=== PATIENT | female | born 1940 | race Caucasian/White ===

== ENCOUNTER 2021-06-02 12:29 | Emergency (ER) | payer MEDICARE, SELFPAY ==
--- NOTE | 2021-06-02 | CTR_ITS ---
PROCEDURE INFORMATION: Exam: CT Maxillofacial Without Contrast Exam date and time: 06/02/2021 1:58 PM Age: 81 years old Clinical indication: Injury or trauma; Fall; Blunt trauma (contusions or hematomas); Orbit/periorbital; Right TECHNIQUE: Imaging protocol: Computed tomography images of the face without contrast. Axial, coronal and sagittal reformatted images were created and reviewed. Radiation optimization: All CT scans at this facility use at least one of these dose optimization techniques: automated exposure control; mA and/or kV adjustment per patient size (includes targeted exams where dose is matched to clinical indication); or iterative reconstruction. COMPARISON: CT head wo con* [id number] 06/02/2021 1:50 PM RADIATION DOSE METRICS: Total DLP (mGy-cm): 724.12 FINDINGS: Orbital cavity: Orbits are normal. Globes are unremarkable. Bones/joints: No acute fracture. Paranasal sinuses: Mild ethmoid mucosal thickening. Small amount of dependent fluid and/or blood products in the sphenoid sinuses. Soft tissues: Right periorbital soft tissue swelling. Other findings: Poor dentition. CT/CT facial bones wo con* [id number] IMPRESSION: 1. No acute facial bone fracture. 2. Additional findings, as above. Radiation Dose CTDIVOL = (mGy): DLP = 724.12 (mGy-cm)
--- NOTE | 2021-06-02 12:42 | CTR_ITS ---
PROCEDURE INFORMATION: Exam: CT Cervical Spine Without Contrast Exam date and time: 06/02/2021 12:42 PM Age: 81 years old Clinical indication: Injury or trauma; Fall; Blunt trauma TECHNIQUE: Imaging protocol: Computed tomography images of the cervical spine without contrast. Axial, coronal and sagittal reformatted images were created and reviewed. Radiation optimization: All CT scans at this facility use at least one of these dose optimization techniques: automated exposure control; mA and/or kV adjustment per patient size (includes targeted exams where dose is matched to clinical indication); or iterative reconstruction. COMPARISON: CT head wo con* [id number] 06/02/2021 1:50 PM RADIATION DOSE METRICS: Total DLP (mGy-cm): 838.21 FINDINGS: Bones/joints: Osteopenia. Mild reversal of the normal cervical lordosis. No CT evidence of acute fracture, dislocation or subluxation. Mild anterolisthesis of C3 on C4 and C7 on T1. Alignment otherwise anatomic. Vertebral body heights maintained. Discs/Spinal canal/Neural foramina: Diffuse ankylosis. Mild multilevel degenerative changes, characterized by disc space narrowing, osteophytosis and uncovertebral and facet joint hypertrophy. Mild multilevel spinal canal and neural foraminal narrowing. Lungs: Grossly unremarkable. Soft tissues: Grossly unremarkable. CT/CT cervical spin wo con* [id number]: 1[address] No CT evidence of acute cervical spine traumatic injury. 2. Additional findings, as above. Radiation Dose CTDIVOL = (mGy): DLP = 838.21 (mGy-cm)
--- NOTE | 2021-06-02 12:42 | CTR_ITS ---
PROCEDURE INFORMATION: Exam: CT Head Without Contrast Exam date and time: 06/02/2021 12:42 PM Age: 81 years old Clinical indication: Injury or trauma; Fall; Blunt trauma (contusions or hematomas); Additional info: Trauma/fall TECHNIQUE: Imaging protocol: Computed tomography of the head without contrast. Axial, coronal and sagittal reformatted images were created and reviewed. Radiation optimization: All CT scans at this facility use at least one of these dose optimization techniques: automated exposure control; mA and/or kV adjustment per patient size (includes targeted exams where dose is matched to clinical indication); or iterative reconstruction. COMPARISON: No relevant prior studies available. RADIATION DOSE METRICS: Total DLP (mGy-cm): 871.23 FINDINGS: Brain: Patchy areas of hypoattenuation in the periventricular and subcortical white matter, consistent with chronic small vessel ischemic disease. No CT evidence of acute intracranial hemorrhage or acute territorial infarction. No significant mass effect or midline shift. Basal cisterns patent. Cerebral ventricles: Prominence of the cortical sulci, cisterns and ventricular system, consistent with cerebral and cerebellar volume loss. Paranasal sinuses: Mild ethmoid mucosal thickening. Small amount of dependent fluid and/or blood products in the sphenoid sinuses. Mastoid air cells: Grossly unremarkable. Vasculature: Calcific atherosclerotic disease in the cavernous internal carotid arteries, as well as the vertebro-basilar system. Bones/joints: No acute osseous abnormality. Soft tissues: Right frontal scalp hematoma. Right periorbital soft tissue swelling. CT/CT head wo con* [id number] IMPRESSION: 1[address] No CT evidence of acute intracranial pathology. 2. Additional findings, as above. Radiation Dose CTDIVOL = (mGy): DLP = 871.23 (mGy-cm)
[2021-06-02 13:10] VITALS: BP 144/71; PULSE 69; RESP 16; TEMP 36.4; O2SAT 95; BMI 36.5
[2021-06-02 14:05] LABS: Charge for UA Resulting for Rev
[2021-06-02 14:38] LABS: Add Urine Microscopic? YES; Bilirubin Urine Neg (Negative); Blood Urine Neg (Negative); Glucose Urine UA Norm (Normal); Ketones Urine Negative (Negative); Leukocyte Esterase Urine Negative (Negative); Nitrate Urine Positive (Negative); Protein Urine Neg (Negative); Urine Appearance Hazy (CLEAR); Urine Color Straw (Yellow); Urobilinogen Urine Norm (Negative); pH Urine 5 (5-7)
[2021-06-02 14:39] LABS: Add Urine Culture? Yes; Bacteria Urine 4+ /hpf; Squamous Epithelial Cell Urine 0-4 /hpf (0-5)
--- NOTE | 2021-06-02 14:53 | XR_ITS ---
WS: [id number] Left hip, 2 views, AP pelvis, 06/02/2021 Clinical Data: fall/pain Comparison: None. Findings: No fractures or dislocations are seen. The left hip shows no fractures. There is an acetabular lip. N o left hip erosion, sclerosis, narrowing or cyst formation is seen. The right hip shows no fractures but there is an acetabular lip. The soft tissues are not remarkable. The adjacent pelvis is normal. The SI joints and pubic symphysis are normal. 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 XR/XR hip LT 2-3V wo/w pel* [id number] Impression: 1. Negative for left hip fracture, minimal osteoarthritis.. 2. Negative pelvis and right hip. Tonnis classification: grade 1: sclerosis of femoral head and acetabulum or sli ght joint space narrowing or slight lipping at joint margins of the left hip.
--- NOTE | 2021-06-02 15:33 | ED_ITS ---
HPI - Fall General: Chief Complaint: Fall Stated Complaint: Hit Right Side of head from fall Time Seen by Provider: 06/02/21 15:33 History of Present Illness: HPI Narrative: Ms Thomas is an 81-year-old lady with history of hypertension, hyperlipidemia, CHF, diabetes who presents emergency department due to fall. She reports over the past few days she has felt generally unwell but denies any specific findings. Last night she got up to go to the bathroom at about 430 and reports feeling lightheaded and off- balance at which point she fell. She was able to get herself up off the floor and did not spend significant amount of time on the floor. She had pain in the left hip with ambulation. She also has generalized pain on her back where she fell. Unclear if head strike or loss of consciousness. No other specific changes in health, exacerbating, or relieving factors identified. Review of Systems General: Reports: 10 or more systems reviewed and unremarkable except in HPI and below Physical Exam Narrative: EXAM NARRATIVE: GENERAL/CONSTITUTIONAL - well-appearing. No acute distress. Eyes - PERRL, no conjunctival injection ENMT - facial contusion. No evidence of abnormal EOMs, pain with EOM, entrapment. No arambula signs or raccoon eyes. Normal jaw alignment. Normal TMs. Moist mucous membranes NECK - supple. trachea midline CARDIOVASCULAR - regular rate and rhythm. Peripheral pulses 2+ and equal RESPIRATORY -clear to auscultation bilaterally. ABDOMEN/GI - Nontender/Nondistended. MSK - Extremities without obvious deformity or tenderness to palpation SKIN - Warm, Dry NEURO - alert and appropriately oriented. Moves all extremities equally. Course ED course: - Patient was seen and evaluated by me at bedside - Patient placed on cardiac monitors, IV access obtained - Initial evaluation notable for facial contusion, hip pain with roll. Nontoxic. - Labs notable for no significant hematologic or metabolic abnormality acutely. Urinalysis nitrate positive with 4+ bacteria and 10-15 WBCs. - Imaging notable for no acute traumatic bony or internal injury. - Upon serial reexamination after treatment the patient was improved. She ambulated with walker. - Based on patient history, evaluation, labs, and imaging as interpreted the most likely cause of the patient's condition is soft tissue injury secondary to fall. Urinalysis mildly concerning for urinary tract infection, will be treated - The results of ED evaluation were discussed with the patient including prescriptions and/or symptomatic cares (if applicable) including appropriate and responsible use, followup plan, and return precautions. The patient verbalized understanding and felt safe for discharge. - Patient discharged in satisfactory condition. Vital Signs: Vital signs: Vital Signs Temperature 97.6 F 06/02/21 13:10 Pulse Rate 78 06/02/21 19:30 Respiratory Rate 18 06/02/21 19:30 Blood Pressure 148/72 06/02/21 19:30 Pulse Oximetry 96 06/02/21 19:30 MDM - Fall Medical Records: Attestation: I reviewed the patient's medical records. Lab Data: Attestation: I reviewed the patient's lab results. Labs: Lab Results 06/02/21 06/02/21 06/02/21 13:40 16:29 16:29 WBC 8.2 10^3/uL 10^3/ uL (4.0-10.0) RBC 4.18 10^6/uL 10^6 /uL (4.1-5.3) Hgb 12.6 g/dL g/dL (11.5-15.3) Hct 38.6 % % (37.0-47.0) MCV 92.3 fl fl (81-99) MCH 30.1 pg pg (28.0-34.0) MCHC 32.6 g/dL g/dL (30.0-36.0) RDW 13.7 % % (12.1-15.1) Plt Count 273 10^3/cmm 10^3 /cmm (130-400) MPV 10.0 fL fL (7.4-10.4) Neut % (Auto) 59.9 % % Lymph % (Auto) 30.6 % % [place] % (Auto) 6.6 % % Eos % (Auto) 2.3 % % Baso % (Auto) 0.1 % % Neut # (Auto) 4.88 10^3/uL 10^3 /uL (1.8-7.7) Lymph # (Auto) 2.5 10^3/uL 10^3/ uL (0.8-4.8) [place] # (Auto) 0.5 10^3/uL 10^3/ uL (0.2-0.9) Eos # (Auto) 0.2 10^3/uL 10^3/ uL (0.0-0.8) Baso # (Auto) 0.0 10^3/uL 10^3/ uL (0.0-0.1) Nucleated RBC % (a uto) 0 % % Nucleated RBCs # 0.0 /100WBC /100W BC Sodium 137 mmol/L mmol/L (136-145) Potassium 4.3 mmol/L mmol/L (3.5-5.1) Chloride 96 mmol/L L mmol/ L (98-107) Carbon Dioxide 29 mmol/L mmol/L (22-29) Anion Gap 16.3 (5-19) BUN 29 mg/dL H mg/dL (8-23) Creatinine 0.9 mg/dL mg/dL (0.5-0.9) GFR Calculation Not Reportable Glucose 132 mg/dL H mg/dL (65-115) Calculated Osmolal ity 292 mOsm/kg mOsm/ kg (285-295) Calcium 9.9 mg/dL mg/dL (8.5-10.5) Total Bilirubin 0.2 mg/dL mg/dL (0.15-1.2) AST 15 U/L U/L (0-32) ALT 16 U/L U/L (0-33) Alkaline Phosphata se 122 IU/L H IU/L (35-105) Troponin T Baselin e Troponin T 120 Min [place] Delta Troponin T Total Protein 7.6 g/dL g/dL (6.6-8.7) Albumin 4.2 g/dL g/dL (3.5-5.2) Globulin 3.4 g/dL g/dL (1.3-4.6) TSH 3.23 uIU/mL uIU/m L (0.27-4.20) Urine Color Straw (Yellow) Urine Appearance Hazy A (CLEAR) Urine pH 5 (5-7) Ur Specific Gravit y 1.010 (1.005-1.030) Urine Protein Neg (Negative) Urine Glucose (UA) Norm (Normal) Urine Ketones Negative (Negative) Urine Blood Neg (Negative) Urine Nitrate Positive H (Negative) Urine Bilirubin Neg (Negative) Urine Urobilinogen Norm mg/dL mg/dL (Negative) Ur Leukocyte Destiny ase Negative (Negative) Urine RBC Not Reportable Urine WBC 10-15 /hpf H /hpf (0-5) Ur Squamous Epith Cells 0-4 /hpf H /hpf (0-5) Amorphous Sediment Not Reportable Urine Bacteria 4+ /hpf H /hpf (NONE) 06/02/21 06/02/21 16:29 18:31 WBC RBC Hgb Hct MCV MCH MCHC RDW Plt Count MPV Neut % (Auto) Lymph % (Auto) [place] % (Auto) Eos % (Auto) Baso % (Auto) Neut # (Auto) Lymph # (Auto) [place] # (Auto) Eos # (Auto) Baso # (Auto) Nucleated RBC % (a uto) Nucleated RBCs # Sodium Potassium Chloride Carbon Dioxide Anion Gap BUN Creatinine GFR Calculation Glucose Calculated Osmolal ity Calcium Total Bilirubin AST ALT Alkaline Phosphata se Troponin T Baselin e 9 ng/L ng/L (0-10) Troponin T 120 Min [place] 9.41 ng/L ng/L (0-10) Delta Troponin T 0.41 ABS# ABS# (0-10) Total Protein Albumin Globulin TSH Urine Color Urine Appearance Urine pH Ur Specific Gravit y Urine Protein Urine Glucose (UA) Urine Ketones Urine Blood Urine Nitrate Urine Bilirubin Urine Urobilinogen Ur Leukocyte Destiny ase Urine RBC Urine WBC Ur Squamous Epith Cells Amorphous Sediment Urine Bacteria EKG Data^: EKG 1: Attestation: I personally reviewed and interpreted this EKG as follows: EKG interpretation date: 06/02/21 EKG interpretation time: 17:30 Interpretation: Twelve-lead EKG shows a regular rhythm at a rate of 70. NV interval 153, QRS duration 87, QTc 412. Normal axis. Interpretation: Sinus rhythm, nonspecific ST segment abnormalities. Discharge Plan Discharge Patient Disposition: Home Clinical Impression: Fall, Contusion, Minor closed head injury, Bacteriuria Condition: Stable Prescriptions: New cephalexin 500 mg capsule 500 mg PO Q6H 10 Days Qty: 40 RF: 0 Discharge Orders: Discharge ED (Routine); Ordered 06/02/21 Ordered By: Edmar Curry Referrals: Antonio Tabor MD [Primary Care Provider] - Discharge Diet: Usual diet Discharge Activity: Resume usual activity Patient Instructions: Urinary Tract Infection in Women (ED), Fall Prevention for Older Adults (ED), Opioid Safety Activity Restrictions/Additional Instructions: Thank you for visiting the emergency department. You were seen and evaluated after a fall. The exact cause of your fall is unclear, you were found to have a small amount of bacteria in your urine and given your fall in addition to symptoms this will be treated. Please follow-up with your primary care provider. Please return to the emergency department for recurrent falls, uncontrolled pain, or anything else that you are concerned about and feel needs emergency department evaluation. Coding Level of Care Code ED Boring Machine Operator Double End for Nilay Lopez
[2021-06-02 16:35] LABS: Basophils % 0.1 %; Eosinophils # 0.2 10^3/uL (0.0-0.8); Eosinophils % 2.3 %; Hematocrit 38.6 % (37.0-47.0); Hemoglobin 12.6 g/dL (11.5-15.3); Lymphocytes # 2.5 10^3/uL (0.8-4.8); Lymphocytes % 30.6 %; Mean Corpuscular HGB Conc 32.6 g/dL (30.0-36.0); Mean Corpuscular Hemoglobin 30.1 pg (28.0-34.0); Mean Corpuscular Volume 92.3 fl (81-99); Monocytes # 0.5 10^3/uL (0.2-0.9); Monocytes % 6.6 %; Neutrophils # 4.88 10^3/uL (1.8-7.7); Neutrophils % 59.9 %; Nucleated Red Blood Cells % 0 %; Platelet Count 273 10^3/cmm (130-400); Red Blood Count 4.18 10^6/uL (4.1-5.3); Red Cell Distribution Width 13.7 % (12.1-15.1); White Blood Count 8.2 10^3/uL (4.0-10.0)
[2021-06-02] MEDS: acetaminophen 325 mg Tablet 650 MG PO (16:38)
[2021-06-02] MEDS: morphine 4 mg/mL SDV 1 mL IVP (16:38)
[2021-06-02] MEDS: ondansetron 2 mg/ML SDV 2 mL 4 MG IVP (16:38)
[2021-06-02 17:01] LABS: Troponin(5th) Baseline 9 ng/L (0-10)
[2021-06-02 17:07] LABS: Alanine Aminotransferase 16 U/L (0-33); Albumin Level 4.2 g/dL (3.5-5.2); Alkaline Phosphatase 122 IU/L (35-105); Blood Urea Nitrogen 29 mg/dL (8-23); Calcium 9.9 mg/dL (8.5-10.5); Carbon Dioxide 29 mmol/L (22-29); Chloride 96 mmol/L (98-107); Globulin 3.4 g/dL (1.3-4.6); Glucose 132 mg/dL (65-115); Osmolality Calculated 292 mOsm/kg (285-295); Sodium 137 mmol/L (136-145); Thyroid Stimulating Hormone 3.23 uIU/mL (0.27-4.20); Total Bilirubin 0.2 mg/dL (0.15-1.2); Total Protein 7.6 g/dL (6.6-8.7)
[2021-06-02 17:10] LABS: Anion Gap 16.3 (5-19); Aspartate Amino Transferase 15 U/L (0-32); Potassium 4.3 mmol/L (3.5-5.1)
[2021-06-02 18:00] VITALS: BP 187/78; PULSE 58; RESP 18; O2SAT 98
--- NOTE | 2021-06-02 18:01 | ECG_ITS ---
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 Measurements Intervals [place] Rate: 70 P: 66 UT: 153 QRS: 10 QRSD: 87 T: -19 QT: 391 QTc: 424 Interpretive Statements SINUS RHYTHM POSSIBLE LEFT ATRIAL ENLARGEMENT [-0.1mV P-WAVE IN V1/V2] POSSIBLE ANTERIOR MYOCARDIAL INFARCTION , PROBABLY OLD [30 ms Q WAVE IN V3/V4, OR R < 0.2 mV IN V4] No previous ECG available for comparison Electronically Signed On 06-02-2021 22:59:21 MEAT STUFFER by Tio Cohen M.D. [email or web address] [id number] f
[2021-06-02 19:07] LABS: Troponin 5 2HR 9.41 ng/L (0-10); Troponin 5 2HR Delta 0.41 ABS# (0-10)
[2021-06-02 19:25] VITALS: BP 157/78; PULSE 66; RESP 18; O2SAT 98
[2021-06-02 19:30] VITALS: BP 148/72; PULSE 78; RESP 18; O2SAT 96
== END 2021-06-02 19:33 | disposition home or self-care (01) ==
PROVIDERS: Emergency Provider Emergency Medicine; PCP Family Medicine
DX: S09.8XXA Other specified injuries of head, initial encounter (principal); R82.71 Bacteriuria; S00.83XA Contusion of other part of head, initial encounter; W19.XXXA Unspecified fall, initial encounter; I11.0 Hypertensive heart disease with heart failure; I50.9 Heart failure, unspecified; E78.5 Hyperlipidemia, unspecified; E11.9 Type 2 diabetes mellitus without complications
CPT/HCPCS: 70450; 70486; 72125; 73502; 80053; 81001; 81003; 84443; 84484; 85025; 87077; 87086; 87186; 93005; 96374; 96375; 99283; J2270; J2405

== ENCOUNTER 2021-06-09 11:31 | Emergency (ER) | payer MEDICARE, SELFPAY ==
[2021-06-09 11:34] VITALS: BP 178/88; PULSE 75; RESP 15; TEMP 36.7; O2SAT 95; BMI 36.8
--- NOTE | 2021-06-09 11:57 | CT_ITS ---
WS: [id number] CT LUMBAR SPINE TECHNIQUE: Noncontrast CT of the lumbar spine with coronal and sagittal reformatted images. CLINICAL INFORMATION: fall, worsening pain COMPARISON: None. DLP: 2306.[address] scans at [facility] use at least one of these dose optimization techniques: automated e xposure control; mA and/or kV adjustment per patient size (includes targeted exams where dose is matc hed to clinical indication); or iterative reconstruction. FINDINGS: Mild lumbar curve convex right. Disc space narrowing worse at L3-L4 L4-L5 and L5-S1. Anterior hypertr ophic changes lumbar spine. No acute appearing compression fractures. Right adrenal adenoma measuring 3.3 x 2.7 cm. Left adrenal gland is normal. L1-L2: Mild disc osteophytic ridging. Moderate facet arthropathy. Spinal canal is patent. Slight narr owing of the right subarticular recess. L2-L3: No significant disc bulging. Moderate facet arthropathy. Spinal canal and foramen are patent. L3-L4: Disc osteophyte complex with a left subarticular disc protrusion. This impinges the left ventr al thecal sac and traversing left L4 nerve root. Severe central canal stenosis. Advanced facet arthro olive. Foramen are patent. L4-L5: Chronic disc desiccation. Prior postoperative changes laminectomy defects. Spinal canal and fo ramen are patent. Advanced facet arthropathy. L5-S1: Disc osteophyte complex with endplate ridging. Spinal canal and foramen are patent. Moderate f acet arthropathy. CT/CT lumbar spine wo con* [id number] IMPRESSION: 1. Mild lumbar curve. No acute compression. No acute fractures. 2. Severe central canal stenosis L3-4 with left pericentral disc protrusion im pinges the left subarticular recess. Advanced facet arthropathy with ligamentum flavum flavum hypertrophy. This can be followed up with MRI. 3. Moderate to advanced facet arthropathy throughout the lumbar spine. 4. Evidence of prior hemilaminectomy defects L4-5. 5. Right adrenal lesion likely adenoma measuring 3.3 x 2.7 CM.
--- NOTE | 2021-06-09 12:01 | CT_ITS ---
WS: [id number] CT pelvis TECHNIQUE: Noncontrast CT of the pelvis with coronal and sagittal reformatted images. CLINICAL INFORMATION: fall COMPARISON: None. DLP: 1003.[address] scans at [facility] use at least one of these dose optimization techniques: automated e xposure control; mA and/or kV adjustment per patient size (includes targeted exams where dose is matc hed to clinical indication); or iterative reconstruction. FINDINGS: Mild degenerative arthritis both sacroiliac joints. Normal iliac wings. Normal visualized sacrum and sacral ala. Normal pubic rami. Normal pubic symphysis. Normal acetabulum. Moderate degenerative arthr itis both hips with joint space narrowing. Disc space narrowing lower lumbar spine. Slightly comminuted and fragmented fractures involving the sacrococcygeal junction age indeterminate. Recommend correlation with area of pain. Small amount of soft tissue edema in this area. No other vi sualized fractures. CT/CT pelvis wo con [id number] IMPRESSION: 1. Slightly comminuted and fragmented fractures involving the sacrococcygeal j unction are age indeterminate. Recommend correlation with area of pain. 2. No other visualized fractures. Notified SHAUN Correa at 06/09/2021 2:32 PM.
[2021-06-09 12:03] VITALS: BP 194/82; PULSE 68; RESP 16; O2SAT 94
--- NOTE | 2021-06-09 12:05 | W.ED.FALL ---
Documented by User: SHAUN Correa 06/09/21 16:51 HPI - Fall General: Chief Complaint: Fall Stated Complaint: BACK PAIN Time Seen by Provider: 06/09/21 11:46 History of Present Illness: HPI Narrative: Patient arrived via ambulance with complaint of worsening low back pain since a fall 1 week ago. Daughter states that she was helping her mother get a wheelchair for doctor's appointment and her mother just sit down the floor because she said her back was hurting too bad and that her legs were weak. Patient states her back continues to hurt has not improved. It hurts for her to bear weight. Also being treated for urinary tract infection and daughter states that mother has periods of incontinence. Denies fever chills nausea or vomiting or other related problems. MD complaint: other (Low back pain from fall 1 week ago.) Onset (ago): day(s) Severity: moderate Severity scale (1-10): 5 Quality: aching Associated symptoms-after fall: Reports no associated symptoms; Denies abdominal pain, chest pain or headache(s) Review of Systems Const: Reports: other (Weakness); Denies: fever(s), chills or body aches Eyes: Denies: change in vision or blurry vision ENMT: Denies: throat pain or nasal congestion Card: Denies: chest pain or dyspnea on exertion Resp: Denies: dyspnea, productive cough or non-productive cough GI: Denies: abdominal pain, nausea or vomiting Musc: Reports: back pain; Denies: extremity pain Skin/Breast: Reports: other (Bruising to face); Denies: rash Neuro: Denies: headache(s) Psych: Denies: anxiety or depression Efren/Lymph: Denies: easy bruising Physical Exam Const: COMMON NORMALS: no acute distress, average body habitus and patient oriented x3 HENMT: COMMON NORMALS: normocephalic HEAD & SCALP: normal to inspection and normocephalic FACE & SINUS: normal facial exam Eye: COMMON NORMALS: conjunctivae normal GENERAL EYE: appearance normal, both eyes and all related structures CONJUNCTIVA: Yes conjunctivae normal Neck/C-Spine: COMMON NORMALS: no JVD Chest: COMMONS NORMALS: normal inspection of the chest Resp: COMMON NORMALS: normal respiratory effort and clear to auscultation bilaterally AUSCULTATION: clear to auscultation bilaterally Cardio: COMMON NORMALS: no JVD, regular rate and regular rhythm RATE: regular rate RHYTHM: regular rhythm GI: COMMON NORMALS: Soft to palpation AUSCULTATION: Yes Hypoactive bowel sounds present PALPATION: Yes Soft to palpation Back/Pelvis: LUMBAR SPINE/LOWER BACK: Yes lumbar spinal tenderness, Yes straight leg raise positive right Straight leg raise positive details right: at 30 degrees and Yes straight leg raise positive left Straight leg raise positive details left: at 30 degrees Extremity: COMMON NORMALS: normal to inspection and full ROM Neuro: COMMON NORMALS: patient oriented x3 Skin: OTHER: Old bruising to the face Course Vital Signs: Vital signs: Vital Signs Temperature 98.0 F 06/09/21 11:34 Pulse Rate 74 06/09/21 15:49 Respiratory Rate 16 06/09/21 15:49 Blood Pressure 171/75 06/09/21 15:49 Pulse Oximetry 96 06/09/21 15:49 MDM - Fall MDM Narrative: Medical decision making narrative: Patient with pain since fall last week. X-rays done we go were negative for any concerning problems. Patient continue with pain and went and performed a CT today which showed she had a sacrococcyx commuted fracture. Patient also has a spinal stenosis L3-L4 which she has had for while continues to worsen. Does have a disc protrusion. Patient is able to move her legs and able stand did go to the bathroom while here in the ER. Pain medication provided a lot of relief. Discussed the case with Dr. Fuentes and came up with plan to care for patient's pain. Patient to follow-up with primary care provider. Lab Data: Labs: Lab Results 06/09/21 06/09/21 06/09/21 12:22 12:22 13:19 WBC 7.3 10^3/uL 10^3/ uL (4.0-10.0) RBC 3.94 10^6/uL L 10 ^6/uL (4.1-5.3) Hgb 12.0 g/dL g/dL (11.5-15.3) Hct 37.1 % % (37.0-47.0) MCV 94.2 fl fl (81-99) MCH 30.5 pg pg (28.0-34.0) MCHC 32.3 g/dL g/dL (30.0-36.0) RDW 13.5 % % (12.1-15.1) Plt Count 237 10^3/cmm 10^3 /cmm (130-400) MPV 10.2 fL fL (7.4-10.4) Neut % (Auto) 72.3 % % Lymph % (Auto) 18.7 % % [place] % (Auto) 6.6 % % Eos % (Auto) 1.6 % % Baso % (Auto) 0.1 % % Neut # (Auto) 5.29 10^3/uL 10^3 /uL (1.8-7.7) Lymph # (Auto) 1.4 10^3/uL 10^3/ uL (0.8-4.8) [place] # (Auto) 0.5 10^3/uL 10^3/ uL (0.2-0.9) Eos # (Auto) 0.1 10^3/uL 10^3/ uL (0.0-0.8) Baso # (Auto) 0.0 10^3/uL 10^3/ uL (0.0-0.1) Nucleated RBC % (a uto) 0 % % Nucleated RBCs # 0.0 /100WBC /100W BC Sodium 133 mmol/L L mmol /L (136-145) Potassium 4.6 mmol/L mmol/L (3.5-5.1) Chloride 93 mmol/L L mmol/ L (98-107) Carbon Dioxide 25 mmol/L mmol/L (22-29) Anion Gap 19.6 H (5-19) BUN 29 mg/dL H mg/dL (8-23) Creatinine 1.3 mg/dL H mg/dL (0.5-0.9) GFR Calculation Not Reportable Glucose 261 mg/dL H mg/dL (65-115) Calculated Osmolal ity 291 mOsm/kg mOsm/ kg (285-295) Calcium 9.7 mg/dL mg/dL (8.5-10.5) Total Bilirubin 0.2 mg/dL mg/dL (0.15-1.2) AST 15 U/L U/L (0-32) ALT 20 U/L U/L (0-33) Alkaline Phosphata se 129 IU/L H IU/L (35-105) Total Protein 7.3 g/dL g/dL (6.6-8.7) Albumin 3.5 g/dL g/dL (3.5-5.2) Globulin 3.8 g/dL g/dL (1.3-4.6) Urine Color Yellow (Yellow) Urine Appearance Clear (CLEAR) Urine pH 5 (5-7) Ur Specific Gravit y 1.015 (1.005-1.030) Urine Protein Neg (Negative) Urine Glucose (UA) 4+ H (Normal) Urine Ketones Negative (Negative) Urine Blood Neg (Negative) Urine Nitrate Negative (Negative) Urine Bilirubin Neg (Negative) Urine Urobilinogen Norm mg/dL mg/dL (Negative) Ur Leukocyte Destiny ase Negative (Negative) Discharge Plan Discharge Patient Disposition: Home Clinical Impression: Protruded lumbar disc Fracture, sacrum/coccyx Qualifiers: Encounter type: initial encounter Fracture type: closed Qualified Code(s): S32.10XA - Unspecified fracture of sacrum, initial encounter for closed fracture Spinal stenosis Qualifiers: Spinal region: lumbar Neurogenic claudication status: without neurogenic claudication Qualified Code(s): M48.061 - Spinal stenosis, lumbar region without neurogenic claudication Condition: Stable Prescriptions: New hydrocodone-acetaminophen 5-325 mg tablet 1 tab PO TID PRN (Reason: pain) Qty: 30 RF: 0 Celebrex 100 mg capsule 100 mg PO BID Qty: 20 RF: 0 No Action cephalexin 500 mg capsule 500 mg PO Q6H 10 Days Qty: 40 RF: 0 tizanidine 4 mg tablet 6 mg PO BEDTIME RF: 0 olanzapine 10 mg tablet 10 mg PO BEDTIME RF: 0 glimepiride 2 mg tablet 2 mg PO DAILY RF: 0 carbamazepine 200 mg tablet 200 mg PO BID RF: 0 Synthroid 88 mcg tablet 88 mcg PO DAILY RF: 0 potassium chloride 20 mEq tablet,ER particles/crystals 20 meq PO DAILY RF: 0 Januvia 100 mg tablet 100 mg PO DAILY RF: 0 olanzapine 5 mg tablet 5 mg PO DAILY RF: 0 citalopram 20 mg tablet 20 mg PO DAILY RF: 0 fiber Tablet 2 tab PO BID RF: 0 Lasix 20 mg Tablet 20 mg PO DAILY RF: 0 gabapentin 100 mg Capsule 100 mg PO TID RF: 0 hydroxyzine pamoate 25 mg capsule 25 mg PO TID PRN (Reason: Anxiety) RF: 0 Vitamin B-12 25 mcg Tablet 25 mcg PO DAILY RF: 0 metoprolol tartrate 25 mg tablet 25 mg PO BID RF: 0 Fish Oil 1,200 (144-216) mg Capsule 1 cap PO DAILY RF: 0 multivitamin Tablet 1 tab PO DAILY RF: 0 Discharge Orders: Discharge ED (Routine); Ordered 06/09/21 Ordered By: Sheldon Colmenares Referrals: Claude Rico, HELP DESK SUPPORT [Primary Care Provider] - Discharge Diet: Usual diet Discharge Activity: Increase activity as tolerated Patient Instructions: Sacral Fracture (ED), Lumbar Spinal Stenosis (ED), Opioid Safety Activity Restrictions/Additional Instructions: Follow-up with medical provider as directed. Take medications as prescribed. Return to the ER or your medical provider if condition worsens. Please read and understand discharge instructions. If any questions ask please. Make sure you follow-up with Angi Rico to get a referral to see the back doctor. Make sure that you also increase water and liquids and a high-fiber diet while on pain medications. Also obtain a donut type pillow to sit on to help with discomfort. Apply ice to area to help with discomfort also. Coding Level of Care Code ED Nut Threader for Chg Fwd Exam Comprehensive Documented by User: Pasquale Fuentes DO 06/10/21 06:34 HPI - Fall General: Chief Complaint: Fall Stated Complaint: BACK PAIN Time Seen by Provider: 06/09/21 11:46 Course Vital Signs: Vital signs: Vital Signs Temperature 98.0 F 06/09/21 11:34 Pulse Rate 74 06/09/21 15:49 Respiratory Rate 16 06/09/21 15:49 Blood Pressure 171/75 06/09/21 15:49 Pulse Oximetry 96 06/09/21 15:49 MDM - Fall MDM Narrative: Medical decision making narrative: Chart reviewed and patient discussed with midlevel. Agree with assessment and plan. Lab Data: Labs: Lab Results 06/09/21 06/09/21 06/09/21 12:22 12:22 13:19 WBC 7.3 10^3/uL 10^3/ uL (4.0-10.0) RBC 3.94 10^6/uL L 10 ^6/uL (4.1-5.3) Hgb 12.0 g/dL g/dL (11.5-15.3) Hct 37.1 % % (37.0-47.0) MCV 94.2 fl fl (81-99) MCH 30.5 pg pg (28.0-34.0) MCHC 32.3 g/dL g/dL (30.0-36.0) RDW 13.5 % % (12.1-15.1) Plt Count 237 10^3/cmm 10^3 /cmm (130-400) MPV 10.2 fL fL (7.4-10.4) Neut % (Auto) 72.3 % % Lymph % (Auto) 18.7 % % [place] % (Auto) 6.6 % % Eos % (Auto) 1.6 % % Baso % (Auto) 0.1 % % Neut # (Auto) 5.29 10^3/uL 10^3 /uL (1.8-7.7) Lymph # (Auto) 1.4 10^3/uL 10^3/ uL (0.8-4.8) [place] # (Auto) 0.5 10^3/uL 10^3/ uL (0.2-0.9) Eos # (Auto) 0.1 10^3/uL 10^3/ uL (0.0-0.8) Baso # (Auto) 0.0 10^3/uL 10^3/ uL (0.0-0.1) Nucleated RBC % (a uto) 0 % % Nucleated RBCs # 0.0 /100WBC /100W BC Sodium 133 mmol/L L mmol /L (136-145) Potassium 4.6 mmol/L mmol/L (3.5-5.1) Chloride 93 mmol/L L mmol/ L (98-107) Carbon Dioxide 25 mmol/L mmol/L (22-29) Anion Gap 19.6 H (5-19) BUN 29 mg/dL H mg/dL (8-23) Creatinine 1.3 mg/dL H mg/dL (0.5-0.9) GFR Calculation Not Reportable Glucose 261 mg/dL H mg/dL (65-115) Calculated Osmolal ity 291 mOsm/kg mOsm/ kg (285-295) Calcium 9.7 mg/dL mg/dL (8.5-10.5) Total Bilirubin 0.2 mg/dL mg/dL (0.15-1.2) AST 15 U/L U/L (0-32) ALT 20 U/L U/L (0-33) Alkaline Phosphata se 129 IU/L H IU/L (35-105) Total Protein 7.3 g/dL g/dL (6.6-8.7) Albumin 3.5 g/dL g/dL (3.5-5.2) Globulin 3.8 g/dL g/dL (1.3-4.6) Urine Color Yellow (Yellow) Urine Appearance Clear (CLEAR) Urine pH 5 (5-7) Ur Specific Gravit y 1.015 (1.005-1.030) Urine Protein Neg (Negative) Urine Glucose (UA) 4+ H (Normal) Urine Ketones Negative (Negative) Urine Blood Neg (Negative) Urine Nitrate Negative (Negative) Urine Bilirubin Neg (Negative) Urine Urobilinogen Norm mg/dL mg/dL (Negative) Ur Leukocyte Destiny ase Negative (Negative) Discharge Plan Discharge Patient Disposition: Home Clinical Impression: Protruded lumbar disc Fracture, sacrum/coccyx Qualifiers: Encounter type: initial encounter Fracture type: closed Qualified Code(s): S32.10XA - Unspecified fracture of sacrum, initial encounter for closed fracture Spinal stenosis Qualifiers: Spinal region: lumbar Neurogenic claudication status: without neurogenic claudication Qualified Code(s): M48.061 - Spinal stenosis, lumbar region without neurogenic claudication Condition: Stable Prescriptions: New hydrocodone-acetaminophen 5-325 mg tablet 1 tab PO TID PRN (Reason: pain) Qty: 30 RF: 0 Celebrex 100 mg capsule 100 mg PO BID Qty: 20 RF: 0 No Action cephalexin 500 mg capsule 500 mg PO Q6H 10 Days Qty: 40 RF: 0 tizanidine 4 mg tablet 6 mg PO BEDTIME RF: 0 olanzapine 10 mg tablet 10 mg PO BEDTIME RF: 0 glimepiride 2 mg tablet 2 mg PO DAILY RF: 0 carbamazepine 200 mg tablet 200 mg PO BID RF: 0 Synthroid 88 mcg tablet 88 mcg PO DAILY RF: 0 potassium chloride 20 mEq tablet,ER particles/crystals 20 meq PO DAILY RF: 0 Januvia 100 mg tablet 100 mg PO DAILY RF: 0 olanzapine 5 mg tablet 5 mg PO DAILY RF: 0 citalopram 20 mg tablet 20 mg PO DAILY RF: 0 fiber Tablet 2 tab PO BID RF: 0 Lasix 20 mg Tablet 20 mg PO DAILY RF: 0 gabapentin 100 mg Capsule 100 mg PO TID RF: 0 hydroxyzine pamoate 25 mg capsule 25 mg PO TID PRN (Reason: Anxiety) RF: 0 Vitamin B-12 25 mcg Tablet 25 mcg PO DAILY RF: 0 metoprolol tartrate 25 mg tablet 25 mg PO BID RF: 0 Fish Oil 1,200 (144-216) mg Capsule 1 cap PO DAILY RF: 0 multivitamin Tablet 1 tab PO DAILY RF: 0 Discharge Orders: Discharge ED (Routine); Ordered 06/09/21 Ordered By: Sheldon Colmenares Referrals: Claude Rico FNP [Primary Care Provider] - Discharge Diet: Usual diet Discharge Activity: Increase activity as tolerated Patient Instructions: Sacral Fracture (ED), Lumbar Spinal Stenosis (ED), Opioid Safety Activity Restrictions/Additional Instructions: Follow-up with medical provider as directed. Take medications as prescribed. Return to the ER or your medical provider if condition worsens. Please read and understand discharge instructions. If any questions ask please. Make sure you follow-up with Angi Rico to get a referral to see the back doctor. Make sure that you also increase water and liquids and a high-fiber diet while on pain medications. Also obtain a donut type pillow to sit on to help with discomfort. Apply ice to area to help with discomfort also. Coding Level of Care Code ED Nut Threader for Nilay Fwd Exam Comprehensive
[2021-06-09 12:43] LABS: Basophils % 0.1 %; Eosinophils # 0.1 10^3/uL (0.0-0.8); Eosinophils % 1.6 %; Hematocrit 37.1 % (37.0-47.0); Lymphocytes # 1.4 10^3/uL (0.8-4.8); Lymphocytes % 18.7 %; Mean Corpuscular HGB Conc 32.3 g/dL (30.0-36.0); Mean Corpuscular Hemoglobin 30.5 pg (28.0-34.0); Mean Corpuscular Volume 94.2 fl (81-99); Mean Platelet Volume 10.2 fL (7.4-10.4); Monocytes # 0.5 10^3/uL (0.2-0.9); Monocytes % 6.6 %; Neutrophils # 5.29 10^3/uL (1.8-7.7); Neutrophils % 72.3 %; Nucleated Red Blood Cells % 0 %; Platelet Count 237 10^3/cmm (130-400); Red Blood Count 3.94 10^6/uL (4.1-5.3); Red Cell Distribution Width 13.5 % (12.1-15.1); White Blood Count 7.3 10^3/uL (4.0-10.0)
[2021-06-09 13:00] LABS: Alanine Aminotransferase 20 U/L (0-33); Albumin Level 3.5 g/dL (3.5-5.2); Alkaline Phosphatase 129 IU/L (35-105); Blood Urea Nitrogen 29 mg/dL (8-23); Calcium 9.7 mg/dL (8.5-10.5); Carbon Dioxide 25 mmol/L (22-29); Chloride 93 mmol/L (98-107); Globulin 3.8 g/dL (1.3-4.6); Glucose 261 mg/dL (65-115); Osmolality Calculated 291 mOsm/kg (285-295); Sodium 133 mmol/L (136-145); Total Bilirubin 0.2 mg/dL (0.15-1.2); Total Protein 7.3 g/dL (6.6-8.7)
[2021-06-09 13:03] LABS: Creatinine Clr Calc Pharmacy 43.3705
[2021-06-09 13:04] LABS: Anion Gap 19.6 (5-19); Aspartate Amino Transferase 15 U/L (0-32); Potassium 4.6 mmol/L (3.5-5.1)
[2021-06-09 13:27] LABS: Add Urine Microscopic? NO; Charge for UA Resulting for Rev
[2021-06-09 13:38] LABS: Bilirubin Urine Neg (Negative); Blood Urine Neg (Negative); Glucose Urine UA 4+ (Normal); Ketones Urine Negative (Negative); Leukocyte Esterase Urine Negative (Negative); Nitrate Urine Negative (Negative); Protein Urine Neg (Negative); Specific Gravity, Urine 1.015 (1.005-1.030); Urine Appearance Clear (CLEAR); Urine Color Yellow (Yellow); Urobilinogen Urine Norm (Negative); pH Urine 5 (5-7)
[2021-06-09] MEDS: CELEcoxib 200 mg Capsule 400 MG PO (15:15)
[2021-06-09 15:16] VITALS: RESP 16
[2021-06-09] MEDS: morphine 4 mg/mL SDV 1 mL 2 MG IM (15:16)
[2021-06-09] MEDS: ondansetron 2 mg/ML SDV 2 mL 4 MG IM (15:16)
[2021-06-09 15:49] VITALS: BP 171/75; PULSE 74; RESP 16; O2SAT 96
== END 2021-06-09 15:51 | disposition home or self-care (01) ==
PROVIDERS: Emergency Provider Nurse Practitioner Family; PCP Nurse Practitioner
DX: S32.10XA Unspecified fracture of sacrum, initial encounter for closed fracture (principal); M48.061 Spinal stenosis, lumbar region without neurogenic claudication; M51.26 Other intervertebral disc displacement, lumbar region; Z79.84 Long term (current) use of oral hypoglycemic drugs; W19.XXXA Unspecified fall, initial encounter
CPT/HCPCS: 72131; 72192; 80053; 81003; 85025; 96372; 99283; J2270; J2405

== ENCOUNTER 2022-10-15 18:33 | Emergency (ER) | payer MEDICARE, SELFPAY ==
[2022-10-15 18:43] VITALS: BP 173/83; PULSE 94; TEMP 36.6; O2SAT 95; BMI 35.2
--- NOTE | 2022-10-15 18:52 | XRR_ITS ---
PROCEDURE INFORMATION: Exam: XR Right Wrist Exam date and time: 10/15/2022 7:00 PM Age: 82 years old Clinical indication: Injury or trauma; Other: Twisting injury; Sprain or strain; Wrist; Right; Additional info: Eval FX TECHNIQUE: Imaging protocol: Radiologic exam of the right wrist. Views: 3 or more views. COMPARISON: No relevant prior studies available. FINDINGS: Bones/joints: Osteopenia. There is an oblique fracture through the distal radius metaphysis with no obvious displacement. There is a longitudinal fracture line extending to the medial margin of the distal radius articular aspect with slightly displaced fragment. No dislocation. Well corticated ossific density measuring 4 mm at the dorsal aspect which may represent chronic injury. 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 Mild degenerative disease at other MCP and 1st IP IP joints is also present. Soft tissues: Normal. Other findings: Three views submitted. XR/XR wrist RT min 3V* [id number] IMPRESSION: Distal radius fracture as described.
--- NOTE | 2022-10-15 18:55 | ED_ITS ---
HPI - Extremity Problem General: Chief complaint: Extremity Injury, Upper Stated complaint: right wrist injury Time Seen by Provider: 10/15/22 18:43 History of Present Illness: 82-year-old female with osteoporosis presenting with right wrist swelling and pain since yesterday afternoon. States she was reaching around her back with her right arm to manipulate her bra prior to going to the store yesterday and felt pain in her wrist. She thought nothing of it and continued about her day. Since that time there has been progressive swelling around the wrist. She states that the swelling is increased to the point where she can hardly move the wrist up and down. Denies falls, other injuries, pain in the elbow, shoulder or neck. Took some Tylenol for the pain. Physical Exam Narrative: EXAM NARRATIVE: Right wrist exam: Patient has marked swelling along the radial aspect of her first digit down to her wrist with hemorrhagic ecchymoses over the same area. Tenderness palpation about the wrist joint globally without tenderness palpation over the scaphoid with ulnar deviation, or with axial loading of the first digit. Patient is able to make a fist, give a thumbs up, and oppose her fingers to her other fingers. Her rings were removed due to hand swelling and a brace was also removed. Palpable radial pulse 2+. Const: COMMON NORMALS: no acute distress, average body habitus and patient oriented x3 HENMT: COMMON NORMALS: normocephalic and atraumatic HEAD & SCALP: normocephalic and atraumatic Eye: COMMON NORMALS: Equal, round and reactive pupils present and EOMs intact bilaterally PUPIL: Yes Equal, round and reactive pupils present Neck/C-Spine: COMMON NORMALS: full ROM and no lymphadenopathy GI: COMMON NORMALS: Normal to inspection, nondistended, normoactive bowel sounds present and Soft to palpation PALPATION: Yes Soft to palpation : COMMON NORMALS: Yes no CVA tenderness and Yes normal external appearance BLADDER/KIDNEY EXAM: Yes no CVA tenderness Back/Pelvis: COMMON NORMALS: no CVA tenderness Neuro: COMMON NORMALS: patient oriented x3, CN's II-XII intact bilaterally, moves all extremities and no focal motor deficits Course Vital Signs: Vital signs: Vital Signs Temperature 98 F 10/15/22 18:43 Pulse Rate 94 10/15/22 20:38 Respiratory Rate 18 10/15/22 20:38 Blood Pressure 197/99 10/15/22 20:38 Pulse Oximetry 93 10/15/22 20:38 Oxygen Delivery Me thod 10/15/22 20:38 MDM - Extremity (Nontraumatic) Medical Decision Making 82-year-old female with distal radius fracture. Neurovascularly intact per physical examination. Vitals nonactionable. Considered neurovascular injury, concomitant scaphoid injury, metacarpal injury, syndesmotic injury, elbow injury, intracranial hemorrhage or injury from endorsed fall, others. Given light mechanism of fracture possible patient has other occult source of injury not endorsed including KAYLYN although daughter in room interacts with patient appropriately. Social determinants of health include elderly, dependent on others for healthcare, [place]. X-ray demonstrating distal radius fracture with minimal displacement. Placed in splint. Post splinting demonstrates intact neurovascular signs. Discharged from the emergency department with advised on home pain control and short course of oxycodone. manager [employer] export logistics manager placed for scheduling orthopedics appointment. Patient also advised to call orthopedic office Sunday morning for appointment for reevaluation. Medical Records I reviewed the patient's medical records. Lab Data I reviewed the patient's lab results. Radiology Impressions Wrist X-Ray 10/15/22 18:52 IMPRESSION: Distal radius fracture as described. Discharge Plan Discharge Patient Disposition: Home Clinical Impression: Fracture of wrist Condition: Stable Prescriptions: New oxycodone 5 mg tablet 2.5 mg PO DAILY PRN (Reason: pain) Qty: 10 0RF No Action amlodipine 5 mg tablet 5 mg PO DAILY metoprolol tartrate 25 mg tablet See Rx Instructions .ROUTE .COMPLEX Qty: 60 3RF Dose Instruction: TAKE ONE TABLET BY MOUTH TWICE A DAY WITH FOOD Rx Instructions: TAKE ONE TABLET BY MOUTH TWICE A DAY WITH FOOD Januvia 100 mg tablet See Rx Instructions .ROUTE .COMPLEX Qty: 30 3RF Dose Instruction: TAKE ONE TABLET BY MOUTH ONCE DAILY Rx Instructions: TAKE ONE TABLET BY MOUTH ONCE DAILY furosemide 20 mg tablet See Rx Instructions .ROUTE .COMPLEX Qty: 30 3RF Dose Instruction: TAKE ONE TABLET BY MOUTH ONCE DAILY Rx Instructions: TAKE ONE TABLET BY MOUTH ONCE DAILY lovastatin 20 mg tablet 20 mg PO DAILY Qty: 90 3RF hydroxyzine pamoate 25 mg capsule 25 mg PO TID PRN (Reason: Anxiety) Qty: 90 1RF carbamazepine 200 mg tablet 200 mg PO BID Qty: 60 11RF tizanidine 4 mg tablet 6 mg PO BEDTIME Rx Instructions: take 1.5 tablets at bedtime olanzapine 10 mg tablet 10 mg PO BEDTIME glimepiride 2 mg tablet 2 mg PO DAILY Synthroid 88 mcg tablet 88 mcg PO DAILY potassium chloride 20 mEq tablet,ER particles/crystals 20 meq PO DAILY olanzapine 5 mg tablet 5 mg PO DAILY citalopram 20 mg tablet 20 mg PO DAILY fiber Tablet 2 tab PO BID gabapentin 100 mg Capsule 100 mg PO TID Vitamin B-12 25 mcg Tablet 25 mcg PO DAILY Fish Oil 1,200 (144-216) mg Capsule 1 cap PO DAILY multivitamin Tablet 1 tab PO DAILY hydrocodone-acetaminophen 5-325 mg tablet 1 tab PO TID PRN (Reason: pain) Qty: 30 0RF Celebrex 100 mg capsule 100 mg PO BID Qty: 20 0RF Discharge Orders: Discharge ED (Routine); Ordered 10/15/22 Ordered By: Antonio Guevara Referrals: Claude Rico EXPELLER OPERATOR [Primary Care Provider] - Discharge Diet: Advance as tolerated Discharge Activity: Resume usual activity Patient Instructions: Opioid Safety, Pain Management Activity Restrictions/Additional Instructions: Call [facility] orthopedics for follow-up appointment. I have also placed a consult to case management to help you arrange an appointment they should be giving you a phone call at your listed phone number. Take 1000 mg of Tylenol at breakfast lunch and dinner for your pain. If you still have pain take 1 tab of oxycodone at breakfast lunch and dinner. Return to the emergency department for any numbness or tingling of your fingers, inability move your fingers, or extreme increases in pain. Coding Level of Care Code ED Military Personnel Specialist for Nilay Lopez
[2022-10-15 19:00] VITALS: BP 170/123; PULSE 92; RESP 18; O2SAT 94
[2022-10-15] MEDS: oxyCODONE 5 mg IR Tab/Cap PO (19:07)
[2022-10-15 20:38] VITALS: BP 197/99; PULSE 94; RESP 18; O2SAT 93
--- NOTE | 2022-10-16 09:47 | DCPLANNER ---
Addendum entered by Irina Newton 10/20/22 09:31: Patient had a follow up appointment scheduled with ortho - patient did attend appointment. Addendum entered by Irina Newton 10/17/22 08:05: Patient has a follow up appointment scheduled for Sunday, October 18, [address]22 at 2:[address] Sanford at ortho. Clinic will call patient with appointment information. Original Note: automation and controls manager had message to schedule a follow up appointment for patient with ortho. automation and controls manager sent patients information to the front office staff at ortho. Patients information will be reviewed. Clinic will call patient with appointment information.
== END 2022-10-15 20:49 | disposition home or self-care (01) ==
PROVIDERS: Emergency Provider General Practice; PCP Nurse Practitioner
DX: S52.501A Unspecified fracture of the lower end of right radius, initial encounter for closed fracture (principal); Z79.84 Long term (current) use of oral hypoglycemic drugs; X50.9XXA Other and unspecified overexertion or strenuous movements or postures, initial encounter
CPT/HCPCS: 73110; 99283

== ENCOUNTER 2022-10-18 16:10 | Outpatient (CLI) | payer MEDICARE, SELFPAY | END 2022-10-18 16:11 | disposition home or self-care (01) | LOC: SPT 16:10 | PROVIDERS: PCP Nurse Practitioner; Visit Provider Specialist | DX: Z46.89 Encounter for fitting and adjustment of other specified devices (principal); S52.501A Unspecified fracture of the lower end of right radius, initial encounter for closed fracture; S52.601A Unspecified fracture of lower end of right ulna, initial encounter for closed fracture; X58.XXXA Exposure to other specified factors, initial encounter | CPT/HCPCS: 25600; 97760; 99203; L3982 ==

== ENCOUNTER → 2023-05-28 15:33 | Outpatient (BNVA) | payer MEDICARE, SELFPAY | PROVIDERS: PCP Nurse Practitioner; Visit Provider Nurse Practitioner Family | DX: T21.22XA Burn of second degree of abdominal wall, initial encounter (principal); T24.292A Burn of second degree of multiple sites of left lower limb, except ankle and foot, initial encounter; L89.322 Pressure ulcer of left buttock, stage 2; X10.2XXA Contact with fats and cooking oils, initial encounter | CPT/HCPCS: 97597; 97598; A6210 ==

== ENCOUNTER → 2023-06-04 15:26 | Outpatient (BNVA) | payer MEDICARE, SELFPAY | PROVIDERS: PCP Nurse Practitioner; Visit Provider Nurse Practitioner Family | DX: T21.22XD Burn of second degree of abdominal wall, subsequent encounter (principal); T24.292 Burn of second degree of multiple sites of left lower limb, except ankle and foot; X10.2XXD Contact with fats and cooking oils, subsequent encounter; L89.322 Pressure ulcer of left buttock, stage 2; I96 Gangrene, not elsewhere classified ==

== ENCOUNTER 2023-08-07 23:21 | Inpatient (IN) | payer MEDICARE, SELFPAY ==
[2023-08-07 23:22] VITALS: BP 190/83; PULSE 83; RESP 18; TEMP 36.8; O2SAT 92; BMI 35.6
[2023-08-07 23:36] LABS: Basophils % 0.1 %; Eosinophils # 0.2 10^3/uL (0.0-0.8); Eosinophils % 1.9 %; Hematocrit 37.3 % (36-47); Lymphocytes # 1.5 10^3/uL (0.8-4.8); Lymphocytes % 15.3 %; Mean Corpuscular Hemoglobin 30.8 pg (27-33); Mean Corpuscular Volume 93.5 fl (85-98); Mean Platelet Volume 9.7 fL (7.4-10.4); Monocytes # 0.6 10^3/uL (0.2-0.9); Monocytes % 6.4 %; Neutrophils # 7.46 10^3/uL (1.8-7.7); Nucleated Red Blood Cells % 0 %; Platelet Count 205 10^3/cmm (157-399); Red Blood Count 3.99 10^6/uL (3.85-5.65); Red Cell Distribution Width 12.5 % (12.1-15.1); White Blood Count 9.82 10^3/uL (3.29-11.43)
--- NOTE | 2023-08-07 23:57 | W.ED.ABDPA2 ---
HPI - Abdominal Pain General: Chief Complaint: Abdominal Pain Stated Complaint: abd pain Time Seen by Provider: 08/07/23 23:30 History of Present Illness: Patient presents to the ER with complaints of abdominal pain and difficulty urinating. Patient states this all started yesterday. Abdominal pain is diffuse and is tender to palpate. Patient states she normally goes to the bathroom multiple times throughout the day however today she is only went once or twice. Patient states she feels like she needs to go but just cannot Review of Systems General: Reports: 10 or more systems reviewed and unremarkable except in HPI and below Physical Exam Const: COMMON NORMALS: no acute distress, average body habitus, patient oriented x3, no limitations, healthy appearing, alert and well nourished HENMT: COMMON NORMALS: normocephalic, atraumatic, hearing grossly normal bilaterally, external ears normal, EAC's normal, Normal external nose present, moist oral mucous membranes and oropharynx normal HEAD & SCALP: normocephalic and atraumatic NOSE: Normal external nose present EXTERNAL EAR: Yes external ears normal EXTERNAL AUDITORY CANAL: EAC's normal Neck/C-Spine: COMMON NORMALS: no JVD Chest: COMMONS NORMALS: normal inspection of the chest and normal palpation of entire chest wall Resp: COMMON NORMALS: normal respiratory effort, No retractions, No use of accessory muscles and clear to auscultation bilaterally AUSCULTATION: clear to auscultation bilaterally Cardio: COMMON NORMALS: no JVD, regular rate, regular rhythm, S1 normal heart sound present, S2 normal heart sound present, No gallops present (Cardio), No clicks present (Cardio), No murmurs present (Cardio) and No rub (Cardio) RATE: regular rate RHYTHM: regular rhythm HEART SOUNDS: S1 normal heart sound present and S2 normal heart sound present GI: COMMON NORMALS: Normal to inspection, nondistended, normoactive bowel sounds present, Soft to palpation, No hepatosplenomegaly present, no masses and no bruits; negative for non-tender (Diffusely mildly tender) PALPATION: Yes Soft to palpation and Yes No hepatosplenomegaly present Extremity: NARRATIVE EXTREMITY EXAM: Bilateral lower extremity 2+ edema Neuro: COMMON NORMALS: patient oriented x3 SENSORIUM/ORIENTATION: Yes alert Course Vital Signs: Vital signs: Vital Signs Temperature 98.3 F 08/07/23 23:22 Pulse Rate 78 08/08/23 02:32 Respiratory Rate 18 08/08/23 02:54 Blood Pressure 160/70 08/08/23 02:32 Pulse Oximetry 96 08/08/23 02:54 Oxygen Delivery Me thod Nasal Cannula 08/08/23 02:32 Oxygen Flow Rate 2 08/08/23 02:32 MDM - Abdominal Pain Medical Decision Making CT scan showed probable small bowel obstruction, we consulted Dr. Bonds who agreed to see the patient in consult. He requested NG tube and admission to hospitalist. Dr. Briggs was consulted who agreed to place the patient inpatient for further evaluation and treatment. Differential Diagnosis Likely abdominal pain; Unlikely acute appendicitis, calculus of kidney, constipation, diverticulitis, endometriosis, gastroenteritis, pancreatitis or small bowel obstruction Medical Records I reviewed the patient's medical records. Lab Data I reviewed the patient's lab results. 08/07/23 23:28 08/07/23 23:28 Labs/Radiology: Radiology Impressions Abdomen/Pelvis CT 08/08/23 00:40 IMPRESSION: 1. Multiple prominent fluid-filled loops of small bowel measuring up to 3.5 cm suggestive of an obstruction, potentially high-grade, equivocal transition point seen in the right deep pelvis. 2. L1 vertebroplasty changes. 3. Bibasilar atelectasis versus minimal infiltrate. 4. Coronary artery atherosclerotic calcifications. 5. Mild cardiomegaly. 6. Hepatic steatosis. 7. Cholecystectomy. 8. Right adrenal 3.7 cm indeterminate nodule, dedicated nonemergent adrenal imaging could further characterize this. THIS REPORT CONTAINS FINDINGS THAT MAY BE CRITICAL TO PATIENT CARE. The findings were verbally communicated via telephone conference with Scott Fernandez at 1:17 AM BILINGUAL CUSTOMER SERVICE SPECIALIST on 08/08/2023. The findings were acknowledged and understood. Laboratory Results WBC 9.82 10^3/uL (3.29-11.43) 08/07/23 23:28 RBC 3.99 10^6/uL (3.85-5.65) 08/07/23 23:28 Hgb 12.30 g/dL (11.27-16.99) 08/07/23 23:28 Hct 37.3 % (36-47) 08/07/23 23:28 MCV 93.5 fl (85-98) 08/07/23 23:28 MCH 30.8 pg (27-33) 08/07/23 23: MCHC 33.0 g/dL (30-55) 08/07/23: RDW 12.5 % (12.1-15.1) 08/07/23: Plt Count 205 10^3/cmm (157-399) 08/07/23 23: MPV 9.7 fL (7.4-10.4) 08/07/23 23: Neut % (Auto) 76.0 % 08/07/23 23: Lymph % (Auto) 15.3 % 08/07/23: [place] % (Auto) 6.4 % 08/07/23: Eos % (Auto) 1.9 % 08/07/23: Baso % (Auto) 0.1 % 08/07/23 Neut # (Auto) 7.46 10^3/uL (1.8-7.7) 08/07/23: Lymph # (Auto) 1.5 10^3/uL (0.8-4.8) 08/07/23: [place] # (Auto) 0.6 10^3/uL (0.2-0.9) 08/07/23: Eos # (Auto) 0.2 10^3/uL (0.0-0.8) 08/07/23: Baso # (Auto) 0.0 10^3/uL (0.0-0.1) 08/07/23: Nucleated RBC % (auto) 0 % 08/07/23: Nucleated RBCs # 0.0 /100WBC 08/07/23 23: Sodium 137 mmol/L (136-145) 08/07/23 23: Potassium 4.3 mmol/L (3.5-5.1) 08/07/23: Chloride 97 mmol/L (98-107) L 08/07/23 23: Carbon Dioxide 30 mmol/L (22-29) H 08/07/23 23: Anion Gap 14.3 (5-19) 08/07/23 23: BUN 24 mg/dL (8-23) H 08/07/23 23: Creatinine 1.1 mg/dL (0.5-0.9) H 08/07/23 23:28 GFR Calculation Not Reportable 08/07/23 23:28 Glucose 172 mg/dL (65-115) H 08/07/23 23:28 Calculated Osmolality 292 mOsm/kg (285-295) 08/07/23 23:28 Lactic Acid 1.0 mmol/L (0.5-2.2) 08/08/23 02:03 Calcium 10.4 mg/dL (8.5-10.5) 08/07/23 23:28 Total Bilirubin 0.2 mg/dL (0.15-1.2) 08/07/23 23:28 AST 11 U/L (0-32) 08/07/23 23: ALT 7 U/L (0-33) 08/07/23 23: Alkaline Phosphatase 114 U/L (35-105) H 08/07/23 23:28 NT-Pro-B Natriuret Pep 531 pg/mL (0-450) H 08/07/23 23:28 Total Protein 7.4 g/dL (6.6-8.7) 08/07/23 23:28 Albumin 3.8 g/dL (3.5-5.2) 08/07/23 23:28 Globulin 3.6 g/dL (1.3-4.6) 08/07/23 23:28 Lipase 34 U/L (13-60) 08/07/23 23:28 Urine Color Yellow (Yellow) 08/08/23 00:17 Urine Appearance Clear (CLEAR) 08/08/23 00:17 Urine pH 5 (5-7) 08/08/23 00:17 Ur Specific [place] 1.020 (1.005-1.030) 08/08/23 00:17 Urine Protein 1+ (Negative) H 08/08/23 00:17 Urine Glucose (UA) Norm (Normal) 08/08/23 00:17 Urine Ketones Negative (Negative) 08/08/23 00:17 Urine Blood Neg (Negative) 08/08/23 00:17 Urine Nitrate Negative (Negative) 08/08/23 00:17 Urine Bilirubin Neg (Negative) 08/08/23 00:17 Urine Urobilinogen Norm mg/dL (Negative) 08/08/23 00:17 Ur Leukocyte Esterase Negative (Negative) 08/08/23 00:17 Urine RBC 0-4 /hpf (0-2) H 08/08/23 00:17 Urine WBC 0-4 /hpf (0-5) H 08/08/23 00:17 Ur Squamous Epith Cells 0-4 /hpf (0-5) H 08/08/23 00:17 Amorphous Sediment Not Reportable 08/08/23 00:17 Urine Bacteria Trace /hpf (NONE) 08/08/23 00:17 Hyaline Casts 15-25 /lpf H 08/08/23 00:17 All radiology interpretation(s) finalized by discharge EKG Data EKG 1: I personally reviewed and interpreted this EKG as follows: EKG interpretation date: 08/08/23 EKG interpretation time: 00:35 Prior EKG tracings: not available for review Interpretation: EKG showed ventricular rate 75 bpm, DC interval 165, QRS duration 90, QTc of 4 1, sinus rhythm with occasional PVC, Discharge Plan Discharge Patient Disposition: Admitted As Inpatient Clinical Impression: Small bowel obstruction Abdominal pain Qualifiers: Abdominal location: lower abdomen, unspecified Qualified Code(s): R10.30 - Lower abdominal pain, unspecified Nausea & vomiting Qualifiers: Vomiting type: unspecified Qualified Code(s): R11.2 - Nausea with vomiting, unspecified Condition: Stable Coding Level of Care Code ED Garden Equipment Mechanic for Nilay Lopez
[2023-08-07 23:59] LABS: Alanine Aminotransferase 7 U/L (0-33); Albumin Level 3.8 g/dL (3.5-5.2); Alkaline Phosphatase 114 U/L (35-105); Anion Gap 14.3 (5-19); Aspartate Amino Transferase 11 U/L (0-32); Blood Urea Nitrogen 24 mg/dL (8-23); Calcium 10.4 mg/dL (8.5-10.5); Carbon Dioxide 30 mmol/L (22-29); Chloride 97 mmol/L (98-107); Globulin 3.6 g/dL (1.3-4.6); Glucose 172 mg/dL (65-115); Lipase 34 U/L (13-60); Osmolality Calculated 292 mOsm/kg (285-295); Potassium 4.3 mmol/L (3.5-5.1); Sodium 137 mmol/L (136-145); Total Bilirubin 0.2 mg/dL (0.15-1.2); Total Protein 7.4 g/dL (6.6-8.7)
[2023-08-08] VITALS (10 sets, daily range): BP systolic 138–183; BP diastolic 57–93; PULSE 68–102; RESP 15–18; TEMP 36.4–37; O2SAT 93–99; BMI 37.3
[2023-08-08 00:20] LABS: NT Pro B Type Natriuretic Pept 531 pg/mL (0-450)
[2023-08-08] MEDS: ondansetron 2 mg/ML SDV 2 mL 4 MG IVP ×2 (00:28→07:09)
[2023-08-08 00:32] LABS: Add Urine Culture? No; Add Urine Microscopic? YES; Bacteria Urine TRACE /hpf; Bilirubin Urine Neg (Negative); Blood Urine Neg (Negative); Glucose Urine UA Norm (Normal); Hyaline Casts Urine 15-25 /lpf; Ketones Urine Negative (Negative); Leukocyte Esterase Urine Negative (Negative); Nitrate Urine Negative (Negative); Protein Urine 1+ (Negative); RBC Urine 0-4 /hpf (0-2); Squamous Epithelial Cell Urine 0-4 /hpf (0-5); Urine Appearance Clear (CLEAR); Urine Color Yellow (Yellow); Urobilinogen Urine Norm (Negative); WBC Urine 0-4 /hpf (0-5); pH Urine 5 (5-7)
--- NOTE | 2023-08-08 00:35 | ECG_ITS ---
[facility] Test Date: 2023-08-08 Pat Name: Daphney Thomas Department: Room: 269 Gender: Female Housing And Residence Life Director: : 1940 Requested By: Scott Fernandez Order Number: [id number] Deirdre MD: Asa Shelley M.D. Measurements Intervals [place] Rate: 75 P: 62 MT: 165 QRS: 8 QRSD: 90 T: 18 QT: 371 QTc: 417 Interpretive Statements SINUS RHYTHM WITH FREQUENT ECTOPIC PREMATURE COMPLEXES ABNORMAL RHYTHM ECG Compared to ECG 06/02/2021 17:17:47 Myocardial infarct finding no longer present Electronically Signed On 08-08-2023 14:18:46 DERMATOLOGY SPECIALIST by Asa Shelley M.D. [id number] f
--- NOTE | 2023-08-08 00:40 | CTR_ITS ---
PROCEDURE INFORMATION: Exam: CT Abdomen And Pelvis With Contrast Exam date and time: 08/08/2023 12:54 AM Age: 83 years old Clinical indication: Abdominal pain; Localized; Lower; Additional info: Low abd pelvic pain, urinary retention TECHNIQUE: Imaging protocol: Computed tomography of the abdomen and pelvis with contrast. Radiation optimization: All CT scans at this facility use at least one of these dose optimization techniques: automated exposure control; mA and/or kV adjustment per patient size (includes targeted exams where dose is matched to clinical indication); or iterative reconstruction. Contrast material: OMNI 350; Contrast volume: 100 ml; Contrast route: INTRAVENOUS (IV); COMPARISON: CT pelvis wo con [id number] 06/09/2021 1:41 PM RADIATION DOSE METRICS: Total DLP (mGy-cm): 1189.28 FINDINGS: Lungs: Bibasilar atelectasis versus minimal infiltrate. Heart: Mild cardiomegaly. Coronary arteries: Coronary artery atherosclerotic calcifications. Liver: Hepatic steatosis. Gallbladder and bile ducts: Cholecystectomy. Pancreas: Normal. No ductal dilation. Spleen: Normal. No splenomegaly. Adrenal glands: Right adrenal 3.7 cm indeterminate nodule, dedicated nonemergent adrenal imaging could further characterize this. Kidneys and ureters: Normal. No hydronephrosis. Stomach and bowel: Multiple prominent fluid-filled loops of small bowel measuring up to 3.5 cm suggestive of an obstruction, potentially high-grade, equivocal transition point seen in the right deep pelvis. Appendix: No evidence of appendicitis. Intraperitoneal space: Unremarkable. No free air. No significant fluid collection. Vasculature: Unremarkable. No abdominal aortic aneurysm. Lymph nodes: Unremarkable. No enlarged lymph nodes. Urinary bladder: Unremarkable as visualized. Reproductive: Unremarkable as visualized. Bones/joints: L1 vertebroplasty changes. Soft tissues: Unremarkable. CT/CT abdomen pelvis w con* [id number] IMPRESSION: 1. Multiple prominent fluid-filled loops of small bowel measuring up to 3.5 cm suggestive of an obstruction, potentially high-grade, equivocal transition point seen in the right deep pelvis. 2. L1 vertebroplasty changes. 3. Bibasilar atelectasis versus minimal infiltrate. 4. Coronary artery atherosclerotic calcifications. 5. Mild cardiomegaly. 6. Hepatic steatosis. 7. Cholecystectomy. 8. Right adrenal 3.7 cm indeterminate nodule, dedicated nonemergent adrenal imaging could further characterize this. THIS REPORT CONTAINS FINDINGS THAT MAY BE CRITICAL TO PATIENT CARE. The findings were verbally communicated via telephone conference with Scott Fernandez at 1:17 AM ICT PROJECT MANAGER on 08/08/2023. The findings were acknowledged and understood.
[2023-08-08] MEDS: iohexol 350 mg/mL 500 mL Btl (per mL) IV (01:09)
[2023-08-08] MEDS: morphine 4 mg/mL SDV 1 mL IVP (02:54)
[2023-08-08] MEDS: metoclopramide 5 mg/mL SDV 2 mL IVP (02:54)
--- NOTE | 2023-08-08 03:09 | XRR_ITS ---
PROCEDURE INFORMATION: Exam: XR Chest Exam date and time: 08/08/2023 3:15 AM Age: 83 years old Clinical indication: Device placement; Ng tube; Additional info: Verification of ng tube placement TECHNIQUE: Imaging protocol: Radiologic exam of the chest. Views: 1 view. COMPARISON: CT abdomen pelvis w con* [id number] 08/08/2023 12:54 AM FINDINGS: Tubes, catheters and devices: Enteric tube tip projects over the stomach bubble in the left upper quadrant. Lungs: Left basilar atelectasis or other infiltrates. Pleural spaces: Unremarkable. No pleural effusion. No pneumothorax. Heart/Mediastinum: Cardiomegaly. Bones/joints: No acute fracture. XR/XR chest 1V portable [id number] IMPRESSION: 1. Enteric tube tip projects over the stomach bubble in the left upper quadrant. 2. Left basilar atelectasis or other infiltrates.
--- NOTE | 2023-08-08 03:23 | P.HP_ITS ---
Providers/Chief Complaint 2 Primary Care Provider: SHAUN Umana Chief Complaint: abd pain History of Present Illness Daphney Thomas is a 83 year old female with a past medical history of hypothyroidism, non insulin-dependent type 2 diabetes mellitus, history of lower extremity edema, hypertension, hypothyroidism, who presents [facility] due to no bowel movement in the last 24 hours, nausea, vomiting, poor appetite, bilateral lower extremity edema. Currently patient has NG tube in place, she complains that she is here in the emergency room as she has not had a bowel movement over 24 hours, she has been having nausea, vomiting, diffuse abdominal pain, poor appetite also bilateral extremity edema and shortness of breath. Denies any chest pain, she has had multiple abdominal surgeries including cholecystectomy and hysterectomy, denies any bloody or black stools, denies any chest pain Review of Systems 2 Const: Denies: fever(s), chills, fatigue or malaise Card: Denies: chest pain Resp: Denies: dyspnea GI: Denies: abdominal pain, nausea or vomiting : Denies: flank pain Neuro: Denies: headache(s) Medications/Allergies Home Medications Medication Instructions Recorded Confirmed Last Taken Type citalopram 20 mg tablet 20 mg PO DAILY 06/09/21 06/25/23 06/09/21 History cyanocobalamin (vitamin B-12) 25 25 mcg PO DAILY 06/09/21 06/25/23 06/09/21 History mcg tablet fiber 2 tab PO BID 06/09/21 06/25/23 06/09/21 History glimepiride 2 mg tablet 2 mg PO DAILY 06/09/21 06/25/23 06/09/21 History levothyroxine 88 mcg tablet 88 mcg PO DAILY 06/09/21 06/25/23 06/09/21 History (Synthroid) multivitamin 1 tab PO DAILY 06/09/21 06/25/23 06/09/21 History olanzapine 10 mg tablet 10 mg PO BEDTIME 06/09/21 06/25/23 06/08/21 History olanzapine 5 mg tablet 5 mg PO DAILY 06/09/21 06/25/23 06/09/21 History omega 9-vup-mwp-fish oil 1,200 mg 1 cap PO DAILY 11/18/21 12/04/23 11/18/21 History (144 mg-216 mg) capsule (Fish Oil) potassium chloride 20 mEq 20 meq PO DAILY 06/09/21 06/25/23 06/09/21 History tablet,extended release(part/cryst) furosemide 20 mg tablet See Rx Instructions .Route 08/02/21 06/25/23 Unknown Rx .COMPLEX #30 tabs metoprolol tartrate 25 mg tablet See Rx Instructions .Route 08/02/21 06/25/23 Unknown Rx .COMPLEX #60 tabs sitagliptin phosphate 100 mg See Rx Instructions .Route 08/02/21 06/25/23 Unknown Rx tablet (Januvia) .COMPLEX #30 tabs amlodipine 5 mg tablet 5 mg PO DAILY 08/09/21 06/25/23 Unknown History hydroxyzine pamoate 25 mg capsule 25 mg PO TID PRN Anxiety #90 caps 05/24/22 06/25/23 Unknown Rx carbamazepine 200 mg tablet 200 mg PO BID #60 tabs 09/18/22 06/25/23 Unknown Rx oxycodone 5 mg tablet 2.5 mg (1/2 x 5 mg) PO DAILY PRN 10/15/22 06/25/23 Unknown Rx pain #10 tabs FAST FORM COCK UP SPLINT #1 ea 10/18/22 06/25/23 Unknown Rx cholecalciferol (vitamin D3) 75 6,000 unit PO DAILY 10/18/22 06/25/23 Unknown History mcg (3,000 unit) tablet lisinopril 2.5 mg tablet 2.5 mg PO DAILY 10/18/22 06/25/23 Unknown History rosuvastatin 20 mg tablet 20 mg PO DAILY 10/18/22 06/25/23 Unknown History Allergies Allergy/AdvReac Type Severity Reaction Status Date / Time No Known Allergies Allergy Verified 08/07/23 23:29 PFSH Acute 2 PFSH: Medical History (Updated 08/08/23 @ 03:30 by Jay Wilks MD) History of hypothyroidism History of hypertension History of type 2 diabetes mellitus Surgical History (Updated 08/08/23 @ 03:24 by Jay Wilks MD) History of hysterectomy History of cholecystectomy Family History (Updated 08/08/23 @ 03:25 by Jay Wilks MD) Mother CAD (coronary artery disease) Social History (Updated 08/08/23 @ 03:24 by Jay Wilks MD) Smoking and tobacco/nicotine status: never used tobacco/nicotine Alcohol intake: never Substance/Drug Use: never Vitals/I&O/Wt Last Vital Signs Temp 98.3 F 08/07/23 23:22 Pulse 78 08/08/23 02:32 Resp 18 08/08/23 02:54 BP 160/70 08/08/23 02:32 Pulse Ox 96 08/08/23 02:54 O2 Del Method Nasal Cannula 08/08/23 02:32 O2 Flow Rate 2 08/08/23 02:32 Weight last 48 hrs Weight 103.419 kg Physical Exam 2 Const: COMMON NORMALS: no acute distress and patient oriented x3 HENMT: COMMON NORMALS: normocephalic HEAD & SCALP: normocephalic Eye: COMMON NORMALS: Equal, round and reactive pupils present and EOMs intact bilaterally Neck/C-Spine: COMMON NORMALS: no JVD Lymph: LYMPHATIC: no lymphadenopathy noted Resp: COMMON NORMALS: normal respiratory effort, No retractions, No use of accessory muscles and clear to auscultation bilaterally AUSCULTATION: clear to auscultation bilaterally Cardio: COMMON NORMALS: regular rate, regular rhythm, S1 normal heart sound present and S2 normal heart sound present RATE: regular rate RHYTHM: r egular rhythm HEART SOUNDS: S1 normal heart sound present and S2 normal heart sound present GI: OTHER: Abdomen is soft, nondistended, diminished bowel sounds, no guarding, no rebound, no rigidity, does have diffuse tenderness : COMMON NORMALS: Yes no CVA tenderness Extremity: NARRATIVE EXTREMITY EXAM: 1+ pitting edema Neuro: COMMON NORMALS: patient oriented x3, CN's II-XII intact bilaterally and moves all extremities Psych: COMMON NORMALS: mental status grossly normal Data 08/07/23 23:28 08/07/23 23:28 A&P Assessment and plan (1) Small bowel obstruction: (2) Nausea & vomiting: Qualifiers: Vomiting type: unspecified Qualified Code(s): R11.2 - Nausea with vomiting, unspecified (3) Abdominal pain: Qualifiers: Abdominal location: lower abdomen, unspecified Qualified Code(s): R 10.30 - Lower abdominal pain, unspecified (4) Bilateral lower extremity edema: Plan Nausea, vomiting, abdominal pain CT scan shows 1. Multiple prominent fluid-filled loops of small bowel measuring up to 3.5 cm suggestive of an obstruction, potentially high-grade, equivocal transition point seen in the right deep pelvis. Plan -General surgery consulted -N.p.o. -Serial abdominal exams -NG tube in place -For now hold off on IV fluids, has pitting edema, complains of shortness of breath -Full code -Lovenox related prophylaxis Bilateral extremity edema, elevated BNP -Hold off on fluid therapy Hypothyroidism, switch to IV levothyroxine Type 2 diabetes mellitus, low-dose sliding scale Hypertension, hold p.o. blood pressure medications Patient is on Tegretol, and olanzapine, will have to resume at some point due to risk of withdrawals, NG tube currently in place, to suction, Attestations 2 Medical Necessity Statement*: Patient requires hospitalization, inpatient, greater than 2 midnights, for bowel obstruction, lower extreme edema Diagnoses Small bowel obstruction K56.609 Nausea & vomiting R11.2 Vomiting type: unspecified Abdominal pain R10.30 Abdominal location: lower abdomen, unspecified Bilateral lower extremity edema R60.0
[2023-08-08 03:56] LABS: Procalcitonin 0.06 ng/mL (0-0.5)
--- NOTE | 2023-08-08 04:19 | PC.NURSE ---
Report called to NOELLE Wolfe on Ms. All questions and concerns addressed at time of report.
[2023-08-08 05:05] LABS: Estmated Average Glucose 137; Hemoglobin A1C 6.4 % (4.0-6.0)
[2023-08-08 05:14] LABS: Thyroid Stimulating Hormone 3.16 uIU/mL (0.27-4.20)
[2023-08-08] MEDS: enoxaparin 40 mg/0.4 mL Syringe SUBCUT (05:59)
[2023-08-08] MEDS: pantoprazole 40 mg SDV IVP (05:59)
[2023-08-08 06:57] LABS: Glucose Point of Care 185 mg/dL (70-110)
--- NOTE | 2023-08-08 08:05 | PC.PHAR ---
pt states her daughter juan carlos [phone] takes care of her medications-pts daughter states the pt takes gabapentin 100mg bid prn ext doesnt show when last filled-pts daughter states the pts lisinopril 2.5mg daily was dced ext shows last filled 07/26/23 90d/s-pts daughter states the pt takes lasix 20mg daily ext shows last filled 07/25/23 30d/s 20mg bid-notes are made in the pharmacy comments
[2023-08-08] MEDS: levothyroxine 100 mcg SDV 44 MCG IVP (08:08)
--- NOTE | 2023-08-08 08:37 | PM.CONSULT ---
Providers/Reason For Consult Consulting Physician/Specialty*: General surgery Reason for Consult*: Small bowel obstruction Attending Physician: Mike Raygoza MD Primary Care Provider: SHAUN Umana History of Present Illness History of Present Illness Daphney Thomas is a 83 year old female who presented to the emergency department complaining of abdominal pain, patient has been passing gas but last bowel movement was about 2 days ago. Per patient and family member report she had a history of previous abdominal surgeries including hysterectomy and resection of gastric mass, she has developed a small bowel obstruction in the past and was told that if she gives a clean diet and stool softeners she can prevent this problem in the future. Due to abdominal pain and distention family on bedside to bring patient to the hospital. All of further workup was stable and a CT scan of the abdomen was done that showed evidence of a partial small bowel obstruction with a possible transition point in the low pelvis. I was consulted for this finding. Review of Systems General: Reports: 10 or more systems reviewed and unremarkable except in HPI and below Medications/Allergies Home Medications Medication Instructions Recorded Confirmed Last Taken Type citalopram 20 mg tablet 20 mg PO QAM 06/09/21 08/08/23 06/09/21 History glimepiride 2 mg tablet 2 mg PO BEDTIME 06/09/21 08/08/23 06/09/21 History levothyroxine 88 mcg tablet 88 mcg PO QAM 06/09/21 08/08/23 06/09/21 History (Synthroid) multivitamin 1 tab PO DAILY 06/09/21 08/08/23 06/09/21 History olanzapine 10 mg tablet 10 mg PO BEDTIME 06/09/21 08/08/23 06/08/21 History olanzapine 5 mg tablet 5 mg PO QAM 06/09/21 08/08/23 06/09/21 History omega 9-mqz-eay-fish oil 1,200 mg 1 cap PO BID 06/09/21 08/08/23 06/09/21 History (144 mg-216 mg) capsule (Fish Oil) amlodipine 5 mg tablet 5 mg PO QAM 08/09/21 08/08/23 Unknown History hydroxyzine pamoate 25 mg capsule 25 mg PO TID PRN Anxiety #90 caps 05/24/22 08/08/23 Unknown Rx carbamazepine 200 mg tablet 200 mg PO BID #60 tabs 09/18/22 08/08/23 Unknown Rx FAST FORM COCK UP SPLINT #1 ea 10/18/22 08/08/23 Unknown Rx cholecalciferol (vitamin D3) 75 6,000 unit PO DAILY 10/18/22 08/08/23 Unknown History mcg (3,000 unit) tablet rosuvastatin 20 mg tablet 20 mg PO BEDTIME 10/18/22 08/08/23 Unknown History Lactobacillus rhamnosus-Bifidobac. 1 cap PO DAILY 08/08/23 08/08/23 Unknown History animalis 3 billion cell capsule ([email or web address]) cyanocobalamin (vitamin B-12) 1 ml PO DAILY 08/08/23 08/08/23 Unknown History 1,000 mcg/mL oral drops (Vitamin B-12) ferrous sulfate 325 mg (65 mg 325 mg PO QAM 08/08/23 08/08/23 Unknown History iron) tablet (iron) furosemide 20 mg tablet (Lasix) 20 mg PO QAM 08/08/23 08/08/23 Unknown History gabapentin 100 mg capsule 100 mg PO BID PRN unknown 08/08/23 08/08/23 Unknown History loratadine 10 mg tablet 10 mg PO DAILY 08/08/23 08/08/23 Unknown History metoprolol tartrate 25 mg tablet 25 mg PO BID 08/08/23 08/08/23 Unknown History potassium gluconate 595 mg (99 mg) 595 mg PO .UP TO QID 08/08/23 08/08/23 Unknown History tablet sitagliptin phosphate 100 mg 100 mg PO QAM 08/08/23 08/08/23 Unknown History tablet (Januvia) Allergies Allergy/AdvReac Type Severity Reaction Status Date / Time No Known Allergies Allergy Verified 08/08/23 07:54 Current Medications Generic Name Dose Route Start Last Admin Trade Name Freq PRN Reason Stop Dose Admin Enoxaparin Sodium 40 mg 08/08/23 04:41 08/08/23 05:59 Enoxaparin 40 Mg/0.4 Ml Syringe SUBCUT 40 mg Q24H [facility] Administration Insulin Human Lispro 0 unit 08/08/23 08:00 08/08/23 07:26 Insulin Lispro 100 Unit/1 Ml SUBCUT Not Given TIDWM [facility] Protocol Levothyroxine Sodium 44 mcg 08/08/23 09:00 08/08/23 08:08 Levothyroxine 100 Mcg Sdv IVP 44 mcg DAILY KATHIE Administration Ondansetron HCl 4 mg 08/08/23 04:41 08/08/23 07:09 Ondansetron 2 Mg/Ml Sdv 2 Ml IVP 4 mg Q8H PRN Administration vomiting, or N/V if npo Pantoprazole Sodium 40 mg 08/08/23 04:41 08/08/23 05:59 Pantoprazole 40 Mg Sdv IVP 40 mg Q24H KATHIE Administration PFSH Acute PFSH: Medical History (Updated 08/08/23 @ 03:30 by Jay Wilks MD) History of hypothyroidism History of hypertension History of type 2 diabetes mellitus Surgical History (Updated 08/08/23 @ 03:24 by Jay Wilks MD) History of hysterectomy History of cholecystectomy Family History (Updated 08/08/23 @ 03:25 by Jay Wilks MD) Mother CAD (coronary artery disease) Social History (Updated 08/08/23 @ 03:24 by Jay Wilks MD) Smoking and tobacco/nicotine status: never used tobacco/nicotine Alcohol intake: never Substance/Drug Use: never Vitals/I&O/Wt Last Vital Signs Temp 98.4 F 08/08/23 08:00 Pulse 76 08/08/23 08:00 Resp 18 08/08/23 08:00 BP 143/73 08/08/23 08:00 Pulse Ox 98 08/08/23 08:00 O2 Del Method Nasal Cannula 08/08/23 08:00 O2 Flow Rate 4 08/08/23 04:15 08/07/23 08/08/23 08/08/23 22:59 06:59 14:59 Intake Total 0 / 0 Balance 0 / 0 Weight last 48 hrs Weight 238 lb Weight 228 lb Physical Exam Narrative: General : Patient is well developed , no acute distress, oriented x3 Head : Normal cephalic, a-traumatic. Nose : Mucous membranes are without erythema. Lungs : Equal chest rise bilaterally, no use of accessory muscles, trachea is midline. CV : Rate and rhythm are normal. Abdomen : Soft, minimal tender especially in the right lower quadrant, minimal distention. Extremities : No edema. Upper extremities are normal bilaterally. Back : non-tender to palpation, no CVA tenderness. Data 08/07/23 23:28 08/07/23 23:28 A&P Assessment and plan (1) Small bowel obstruction: Plan 84-year-old female with multiple medical comorbidities presenting now with a partial small bowel obstruction. Patient appears to be doing well this morning, NG tube is in place, plan is to continue conservative management, patient will be decompressed for 24 to 48 hours after that if she has a bowel movement we can proceed with clear liquid diet and stool softeners. All other management by medical team is appreciated. General surgery will continue to follow. -NG to low intermittent wall suction -N.p.o. for now -Will reevaluate in the morning. Coding Level of Care Code Acute Code for [facility] Diagnoses Small bowel obstruction K56.609
--- NOTE | 2023-08-08 11:21 | W.PM.EVENTAC ---
Event Note Event Note: Added opioids for pain management NG tube to suction 200 mL in the container Appreciate neurosurgery recommendations Patient stating that she never had any abnormal colonoscopies in the past, no history of cancer, will start PPN Add IV opioids Monitor for signs of fluid overload however clinically patient looks extremely dehydrated
[2023-08-08 11:22] LABS: Glucose Point of Care 184 mg/dL (70-110)
[2023-08-08 17:19] LABS: Glucose Point of Care 138 mg/dL (70-110)
[2023-08-08 23:24] LABS: Glucose Point of Care 142 mg/dL (70-110)
[2023-08-09] VITALS (9 sets, daily range): BP systolic 144–189; BP diastolic 51–73; PULSE 80–90; RESP 16–18; TEMP 36.8–37; O2SAT 93–100
[2023-08-09] MEDS: morphine 4 mg/mL SDV 1 mL 2 MG IVP ×3 (00:07→22:07)
[2023-08-09] MEDS: ondansetron 2 mg/ML SDV 2 mL 4 MG IVP ×2 (00:07→22:03)
[2023-08-09] MEDS: pantoprazole 40 mg SDV IVP (04:27)
[2023-08-09] MEDS: enoxaparin 40 mg/0.4 mL Syringe SUBCUT (04:27)
--- NOTE | 2023-08-09 04:32 | PC.NURSE ---
pt has been incontience this shift staff has change pt 2x
[2023-08-09 04:57] LABS: Glucose Point of Care 142 mg/dL (70-110)
[2023-08-09 05:45] LABS: Basophils % 0.1 %; Eosinophils # 0.3 10^3/uL (0.0-0.8); Eosinophils % 4.1 %; Hematocrit 35.8 % (36-47); Lymphocytes # 1.7 10^3/uL (0.8-4.8); Lymphocytes % 23.3 %; Mean Corpuscular Hemoglobin 30.6 pg (27-33); Mean Corpuscular Volume 98.6 fl (85-98); Mean Platelet Volume 10.1 fL (7.4-10.4); Monocytes # 0.7 10^3/uL (0.2-0.9); Monocytes % 9.4 %; Neutrophils # 4.54 10^3/uL (1.8-7.7); Neutrophils % 62.8 %; Nucleated Red Blood Cells % 0 %; Platelet Count 169 10^3/cmm (157-399); Red Blood Count 3.63 10^6/uL (3.85-5.65); Red Cell Distribution Width 12.7 % (12.1-15.1); White Blood Count 7.24 10^3/uL (3.29-11.43)
--- NOTE | 2023-08-09 06:00 | XR_ITS ---
WS: [id number] Exam: XR KUB portable [id number] Date/Time of Exam: 08/09/2023 7:43 AM Reason For Exam: sbo An enteric tube enters the stomach however the sideport of the tube is just above the GE junction. No bowel obstruction or pneumoperitoneum. Moderate amount retained stool in the colon. No sign of organ enlargement. Signs of prior cholecystectomy. Advanced degenerative changes of the lumbar spine with levoscoliosis. Signs of vertebroplasty involving L1. IMPRESSION: 1. No acute abdominal process identified. 2. Moderate amount retained stool in the transverse and RIGHT colon. 3. An NG tube noted probably ending in the fundus of the stomach however the sideport of the tube caridad ears to end just above the GE junction.
[2023-08-09 06:12] LABS: Alanine Aminotransferase 55 U/L (0-33); Albumin Level 3.4 g/dL (3.5-5.2); Alkaline Phosphatase 137 U/L (35-105); Aspartate Amino Transferase 48 U/L (0-32); Blood Urea Nitrogen 21 mg/dL (8-23); Calcium 9.9 mg/dL (8.5-10.5); Carbon Dioxide 31 mmol/L (22-29); Chloride 102 mmol/L (98-107); Globulin 3.5 g/dL (1.3-4.6); Glucose 130 mg/dL (65-115); NT Pro B Type Natriuretic Pept 661 pg/mL (0-450); Osmolality Calculated 297 mOsm/kg (285-295); Phosphorus 3.2 mg/dL (2.5-4.5); Sodium 141 mmol/L (136-145); Total Bilirubin 0.2 mg/dL (0.15-1.2); Total Protein 6.9 g/dL (6.6-8.7)
[2023-08-09] MEDS: levothyroxine 100 mcg SDV 44 MCG IVP (10:37)
--- NOTE | 2023-08-09 11:03 | P.PN_ITS ---
Subjective 2 Subjective: NG output 400 mL No leukocytosis or fever Patient is stating that her pain has not improved at all She is still in pain Is pointing to her hypogastric region Vitals/I&O/Wt Last Vital Signs Temp 98.4 F 08/09/23 08:00 Pulse 90 08/09/23 08:00 Resp 16 08/09/23 08:58 BP 160/68 08/09/23 08:00 Pulse Ox 96 08/09/23 08:00 O2 Del Method Nasal Cannula 08/09/23 08:00 O2 Flow Rate 3 08/08/23 19:46 08/08/23 08/09/23 08/09/23 22:59 06:59 14:59 Output Total 350 / 350 50 / 400 Balance -350 / -350 -50 / -400 Weight last 48 hrs Weight 107.955 kg Weight 107.955 kg Weight 103.419 kg Physical Exam 2 Narrative: Mild tenderness on deep palpation hypogastric region Bowel sounds sluggish right lower quadrant, completely absent left lower quadrant Clinically very dehydrated NG to to suction with 400 mL coffee-colored content Awake and alert No acute chest pain Currently on 2 L nasal cannula No active shortness of breath no active crackles or wheezing Data 08/09/23 04:54 08/09/23 04:54 A&P Assessment and plan (1) Nausea & vomiting: Qualifiers: Vomiting type: unspecified Qualified Code(s): R11.2 - Nausea with vomiting, unspecified (2) Small bowel obstruction: (3) Abdominal pain: Qualifiers: Abdominal location: lower abdomen, unspecified Qualified Code(s): R 10.30 - Lower abdominal pain, unspecified Plan Small bowel obstruction:- NG to suction Active output KUB showing retained stool in transverse and right colon NG tube needs to be advanced Continue IV fluids Appreciate dietary recommendations Full code No fever or leukocytosis Creatinine improving Abnormal liver enzymes noted Her BNP is 600 clinically she does not look fluid overloaded Attestations 2 Medical Necessity Statement*: Continue medical management Diagnoses Nausea & vomiting R11.2 Vomiting type: unspecified Small bowel obstruction K56.609 Abdominal pain R10.30 Abdominal location: lower abdomen, unspecified
[2023-08-09 11:17] LABS: Glucose Point of Care 158 mg/dL (70-110)
--- NOTE | 2023-08-09 11:51 | XR_ITS ---
WS: [id number] Exam: XR KUB portable [id number] Date/Time of Exam: 08/09/2023 12:06 PM Reason For Exam: confirm ng placement An enteric tube is in place and looped in the body the stomach appearing to be in satisfactory positi on. No bowel obstruction or pneumoperitoneum. No sign of organ enlargement. Moderate amount retained stool in the transverse and RIGHT colon. Signs of prior cholecystectomy. L1 vertebroplasty. Degenerat sage changes of the thoracic and lumbar spine as well as the hips. IMPRESSION: 1. NG tube looped in the body the stomach in satisfactory location. 2. No acute abdominal process.
[2023-08-09] MEDS: dextrose 5%-sod chloride 0.9% 1,000 ML 30 ML IV (11:53)
--- NOTE | 2023-08-09 17:04 | P.PN_ITS ---
Subjective 2 Subjective: 83-year-old female admitted with possibl e small bowel obstruction. NG tube output has been about 400 cc over the last 24 hours. Patient still has some abdominal pain, had 1 episode of gas. No abdominal distention. Vitals/I&O/Wt Last Vital Signs Temp 98.2 F 08/09/23 15:56 Pulse 90 08/09/23 15:56 Resp 16 08/09/23 15:56 BP 155/69 08/09/23 15:56 Pulse Ox 93 08/09/23 15:56 O2 Del Method Nasal Cannula 08/09/23 15:56 O2 Flow Rate 3 08/08/23 19:46 08/09/23 08/09/23 08/09/23 06:59 14:59 22:59 Output Total 50 / 400 Balance -50 / -400 Weight last 48 hrs Weight 238 lb Weight 238 lb Weight 228 lb Physical Exam 2 GI: OTHER: Abdominal exam is benign, minimal tenderness in the left flank, nondistended. Data 08/09/23 04:54 08/09/23 04:54 A&P Assessment and plan (1) Small bowel obstruction: Plan After complete history physical examination and review of all available clinical data the following is my assessment. Patient is progressing from partial small bowel obstruction. NG output is about 400 cc and she has started to pass some gas. Will decompress until tomorrow morning at that point we will start a Gastrografin trial and obtain a series of x-rays to evaluate the progression into the small intestine. If progression is satisfactory we will remove the NG tube and the patient can be starting clears. Plan was discussed with the patient and family at the bedside. No plan for surgical intervention at this time. Attestations 2 Medical Necessity Statement*: Patient will require 24 to 48 hours of hospital stay for management of partial SBO Coding Level of Care Code Acute Code for [facility] Fwd Diagnoses Small bowel obstruction K56.609
[2023-08-09 21:00] LABS: Glucose Point of Care 143 mg/dL (70-110)
[2023-08-10] VITALS (13 sets, daily range): BP systolic 133–175; BP diastolic 65–99; PULSE 69–93; RESP 15–18; TEMP 36.7–37.1; O2SAT 95–99; BMI 36.5
[2023-08-10 00:49] LABS: Glucose Point of Care 146 mg/dL (70-110)
[2023-08-10] MEDS: pantoprazole 40 mg SDV IVP (04:05)
[2023-08-10] MEDS: enoxaparin 40 mg/0.4 mL Syringe SUBCUT (04:05)
[2023-08-10 05:01] LABS: Eosinophils # 0.3 10^3/uL (0.0-0.8); Eosinophils % 3.5 %; Hematocrit 34.5 % (36-47); Lymphocytes # 1.5 10^3/uL (0.8-4.8); Lymphocytes % 18.2 %; Mean Corpuscular HGB Conc 31.6 g/dL (30-55); Mean Corpuscular Hemoglobin 30.8 pg (27-33); Mean Corpuscular Volume 97.5 fl (85-98); Mean Platelet Volume 10.4 fL (7.4-10.4); Monocytes # 0.6 10^3/uL (0.2-0.9); Monocytes % 7.5 %; Neutrophils # 5.61 10^3/uL (1.8-7.7); Neutrophils % 70.5 %; Nucleated Red Blood Cells % 0 %; Platelet Count 161 10^3/cmm (157-399); Red Blood Count 3.54 10^6/uL (3.85-5.65); Red Cell Distribution Width 12.4 % (12.1-15.1); White Blood Count 7.96 10^3/uL (3.29-11.43)
[2023-08-10 05:22] LABS: Albumin Level 3.4 g/dL (3.5-5.2); Alkaline Phosphatase 124 U/L (35-105); Anion Gap 13.7 (5-19); Aspartate Amino Transferase 21 U/L (0-32); Blood Urea Nitrogen 16 mg/dL (8-23); Calcium 10.1 mg/dL (8.5-10.5); Carbon Dioxide 30 mmol/L (22-29); Chloride 103 mmol/L (98-107); Globulin 3.5 g/dL (1.3-4.6); Glucose 139 mg/dL (65-115); Osmolality Calculated 299 mOsm/kg (285-295); Potassium 3.7 mmol/L (3.5-5.1); Sodium 143 mmol/L (136-145); Total Bilirubin 0.3 mg/dL (0.15-1.2); Total Protein 6.9 g/dL (6.6-8.7)
[2023-08-10 05:34] LABS: Alanine Aminotransferase 33 U/L (0-33)
[2023-08-10 07:40] LABS: Glucose Point of Care 165 mg/dL (70-110)
[2023-08-10] MEDS: levothyroxine 100 mcg SDV 44 MCG IVP (09:57)
--- NOTE | 2023-08-10 10:12 | P.PN_ITS ---
Subjective 2 Subjective: 83-year-old female who was admitted to [facility] with partial SBO. Over the last 24 hours patient is doing much better, has had abundant gas and per medical report there is active bowel sounds in all quadrants. Denies abdominal pain this morning, she is feeling better. Vitals/I&O/Wt Last Vital Signs Temp 98.7 F 08/10/23 08:00 Pulse 93 08/10/23 08:00 Resp 16 08/10/23 08:00 BP 162/74 08/10/23 08:00 Pulse Ox 99 08/10/23 08:00 O2 Del Method Nasal Cannula 08/10/23 08:00 O2 Flow Rate 3 08/09/23 20:00 08/09/23 08/10/23 08/10/23 22:59 06:59 14:59 Output Total 550 / 550 Balance -550 / -550 Weight last 48 hrs Weight 233 lb Weight 238 lb Physical Exam 2 GI: OTHER: Abdominal exam is benign, abdomen soft, nontender, nondistended. Data 08/10/23 04:16 08/10/23 04:16 A&P Assessment and plan (1) Small bowel obstruction: Plan Patient is progressing well, we plan to Gastrografin trial today we will administer 120 mL of Gastrografin diluted in 50 cc of water and clamp the tube for 4 to 6 hours if Gastrografin is seen to be progressing into the gastrointestinal tract I will proceed with removal of NG tube and patient will have diet, anticipated date of discharge tomorrow. Attestations 2 Medical Necessity Statement*: Patient will require 24 hours of hospital stay for management of SBO and Gastrografin trial. Coding Level of Care Code Acute Code for [facility] Fwd Diagnoses Small bowel obstruction K56.609
[2023-08-10 10:44] LABS: Glucose Point of Care 189 mg/dL (70-110)
--- NOTE | 2023-08-10 12:09 | P.PN_ITS ---
Subjective 2 Subjective: This morning patient is stating that she has passed a lot of gas since yesterday We are doing Gastrografin GI series Most likely NG tube will come out and she will have clear liquid diet Abdomen is soft bowel sounds present Vitals/I&O/Wt Last Vital Signs Temp 98.1 F 08/10/23 11:42 Pulse 93 08/10/23 11:42 Resp 16 08/10/23 11:42 BP 159/80 08/10/23 11:42 Pulse Ox 95 08/10/23 11:42 O2 Del Method Nasal Cannula 08/10/23 11:42 O2 Flow Rate 3 08/09/23 20:00 08/09/23 08/10/23 08/10/23 22:59 06:59 14:59 Output Total 550 / 550 Balance -550 / -550 Weight last 48 hrs Weight 105.687 kg Weight 107.955 kg Physical Exam 2 Narrative: Clinically patient looks dehydrated Abdomen soft, bowel sound present in all quadrants, nontender IV fluids running at the bedside Pleasant and cooperative She was asking if NG tube could be removed Dry mucous membranes GCS 15 S1, S2 Data 08/10/23 04:16 08/10/23 04:16 A&P Assessment and plan (1) Small bowel obstruction: (2) Abdominal pain: Qualifiers: Abdominal location: lower abdomen, unspecified Qualified Code(s): R 10.30 - Lower abdominal pain, unspecified Plan After Gastrografin study DC and will need to remove her NG tube She is passing gas Bowel sounds are returned Abdomen is soft I am hopeful we will be able to start clear liquid diet today Continue D5 normal saline IV fluid hydration Clinically patient is very dehydrated She is very desperate to start her diet Constipation evident on KUB Appreciate General surgery recommendations Attestations 2 Medical Necessity Statement*: Anticipate discharge over the weekend Diagnoses Small bowel obstruction K56.609 Abdominal pain R10.30 Abdominal location: lower abdomen, unspecified
--- NOTE | 2023-08-10 12:42 | PM.MISC ---
Miscellaneous Note Purpose of Documentation: Update on patient care Note: Gastrografin was administered around 11:30 AM, will obtain an x-ray around 3:30 PM. If good progression of the contrast I will plan to remove NG tube and patient can be started on clears.
--- NOTE | 2023-08-10 13:05 | PC.SOCIAL ---
Pg 2 IMM Explained to pt Pg 2 IMM. No questions voiced. Provided pt a copy. Initialed, dated, & timed a copy & placed in chart.
--- NOTE | 2023-08-10 14:30 | XR_ITS ---
WS: [id number] Exam: XR abdomen 1V* [id number] Date/Time of Exam: 08/10/2023 2:30 PM Reason For Exam: gastrografin trial There are numerous dilated small bowel loops suggesting small bowel obstruction. No free air is visua lized. There is radiographic contrast in the stomach. An enteric tube is noted ending in the body of the stomach. Signs of prior cholecystectomy. Signs of L1 vertebroplasty. IMPRESSION: 1. Numerous dilated small bowel loops suggesting small bowel obstruction. 2. Radiographic contrast in the stomach as well as an enteric tube ending in the body of the stomach.
[2023-08-10] MEDS: morphine 4 mg/mL SDV 1 mL 2 MG IVP ×2 (15:56→21:40)
--- NOTE | 2023-08-10 16:44 | PM.MISC ---
Miscellaneous Note Purpose of Documentation: Update on patient care Note: I have reviewed the recent x-ray of the abdomen done after Gastrografin administration. Contrast still retained in the stomach. Patient remains a stable, I Seen her at the bedside she states that she has been passing significant amount of gas per rectum. I did a rectal examination which shows soft stool in the rectal vault. Abdominal exam continues to be benign. Due to these findings I think were going to continue with NG tube clamped until the morning, I will obtain an x-ray in the morning to evaluate for progression of the Gastrografin into the GI tract. If there is lack of progression of the Gastrografin I will happily discuss the possibility of an exploratory laparotomy with family member. Operative intervention in this patient will be our last resort, due to her age and significant evidence of deconditioning this will be a cardiac risk procedure that may result in mortality or complex morbidity. I have discussed the case with the medical team. Will follow-up in the morning.
[2023-08-10 16:58] LABS: Glucose Point of Care 173 mg/dL (70-110)
[2023-08-10 18:15] LABS: Lactate (Lactic Acid level) 1.1 mmol/L (0.5-2.2)
[2023-08-10] MEDS: ondansetron 2 mg/ML SDV 2 mL 4 MG IVP (18:39)
[2023-08-10] MEDS: dextrose 5%-sod chloride 0.9% 1,000 ML 30 ML IV (22:34)
[2023-08-10 22:41] LABS: Glucose Point of Care 164 mg/dL (70-110)
[2023-08-10] MEDS: HYDROmorphone 1 mg/mL INJ 1 mL IVP (23:40)
[2023-08-11] VITALS (10 sets, daily range): BP systolic 136–171; BP diastolic 65–82; PULSE 69–87; RESP 14–19; TEMP 36.5–37.1; O2SAT 91–98
[2023-08-11 05:05] LABS: Glucose Point of Care 164 mg/dL (70-110)
[2023-08-11] MEDS: enoxaparin 40 mg/0.4 mL Syringe SUBCUT (05:10)
[2023-08-11] MEDS: pantoprazole 40 mg SDV IVP (05:10)
--- NOTE | 2023-08-11 05:33 | PC.NURSE ---
Patient had extra large soft/loose bowel movement on date night caregiver.
[2023-08-11 05:46] LABS: Basophils % 0.1 %; Eosinophils # 0.3 10^3/uL (0.0-0.8); Eosinophils % 4.1 %; Hematocrit 34.8 % (36-47); Lymphocytes # 1.1 10^3/uL (0.8-4.8); Mean Corpuscular HGB Conc 30.5 g/dL (30-55); Mean Corpuscular Hemoglobin 30.5 pg (27-33); Mean Corpuscular Volume 100.3 fl (85-98); Mean Platelet Volume 10.1 fL (7.4-10.4); Monocytes # 0.7 10^3/uL (0.2-0.9); Monocytes % 9.2 %; Neutrophils % 71.3 %; Nucleated Red Blood Cells % 0 %; Platelet Count 155 10^3/cmm (157-399); Red Blood Count 3.47 10^6/uL (3.85-5.65); Red Cell Distribution Width 12.5 % (12.1-15.1); White Blood Count 7.29 10^3/uL (3.29-11.43)
[2023-08-11 06:05] LABS: Anion Gap 14.9 (5-19); Blood Urea Nitrogen 18 mg/dL (8-23); Calcium 9.8 mg/dL (8.5-10.5); Carbon Dioxide 28 mmol/L (22-29); Chloride 108 mmol/L (98-107); Glucose 163 mg/dL (65-115); Osmolality Calculated 309 mOsm/kg (285-295); Potassium 3.9 mmol/L (3.5-5.1); Sodium 147 mmol/L (136-145)
--- NOTE | 2023-08-11 06:43 | XRR_ITS ---
PROCEDURE INFORMATION: Exam: XR Abdomen Exam date and time: 08/11/2023 7:28 AM Age: 83 years old Clinical indication: Condition or disease; Intestinal condition; Obstruction; Additional info: Follow up gastrografin for sbo TECHNIQUE: Imaging protocol: Radiologic exam of the abdomen. Views: Frontal supine view of the abdomen. 1 View. COMPARISON: CR XR abdomen 1V* [id number] 08/10/2023 3:31 PM FINDINGS: Tubes, catheters and devices: There is an NG tube in the stomach as before. Gastrointestinal tract: Contrast has now made its way through the small bowel and is in the colon and rectum. There are persistent mildly dilated small bowel loops. Findings may reflect a mild adynamic ileus or a low-grade partial small bowel obstruction. Intraperitoneal space: There are surgical clips in the right upper quadrant. Bones/joints: There are degenerative changes and scoliosis in the spine. Patient has undergone previous kyphoplasty. XR/XR abdomen 1V* [id number] IMPRESSION: 1. Contrast is now in the colon and rectum, see above 2. NG tube.
[2023-08-11 06:59] LABS: Glucose Point of Care 167 mg/dL (70-110)
[2023-08-11 08:05] LABS: Glucose Point of Care 168 mg/dL (70-110)
[2023-08-11] MEDS: levothyroxine 100 mcg SDV 44 MCG IVP (08:46)
--- NOTE | 2023-08-11 08:56 | PC.NURSE ---
This nurse returned daughter, Estrada, phone call to give an update at 8:54. [phone]
--- NOTE | 2023-08-11 09:16 | P.PN_ITS ---
Subjective 2 Subjective: In the last 24 hours patient was given Gastrografin for trial. Initial x-ray was done about 2 hours after Gastrografin administration showing evidence of contrast in the stomach, therefore I decided to wait with the tube clamped until this morning. X-ray this morning show evidence of progression of the contrast to the colon. In the interim patient had a very large bowel movement overnight consisting of soft stool and liquid most likely due to the therapeutic effect of the Gastrografin. She has remained stable no significant abdominal cramping all labs and vitals have been stable. Vitals/I&O/Wt Last Vital Signs Temp 97.7 F 08/11/23 08:00 Pulse 87 08/11/23 08:00 Resp 14 08/11/23 08:00 BP 164/74 08/11/23 08:00 Pulse Ox 94 08/11/23 08:00 O2 Del Method Nasal Cannula 08/11/23 00:00 O2 Flow Rate 3 08/11/23 00:00 08/10/23 08/11/23 08/11/23 22:59 06:59 14:59 Intake Total 1000 / 1000 Balance 1000 / 1000 Weight last 48 hrs Weight 232 lb 1.6 oz Weight 233 lb Physical Exam 2 GI: OTHER: Abdominal exam is benign, soft minimal distention, nontender. Data 08/11/23 05:07 08/11/23 05:07 A&P Assessment and plan (1) Small bowel obstruction: Plan 83-year-old female with partial small bowel obstruction. She is status post Gastrografin trial with successful result, patient had a large bowel movement and contrast is noted to be on the colon this morning. I have remove NG tube and we will plan to start the patient on clear liquid diet, she will need to continue on aggressive bowel regimen. I suspect that part of her clinical picture is related to motility issues and distant testing this is likely chronic in nature. I do not anticipate the need of surgery as all the objective data points to a functional problem rather than the mechanical obstruction at this point. The patient is tolerating diet she can be discharged home from the general surgery standpoint. Attestations 2 Medical Necessity Statement*: Patient cleared for discharge once tolerating diet. Coding Level of Care Code Acute Code for [facility] Diagnoses Small bowel obstruction K56.609
--- NOTE | 2023-08-11 12:04 | PC.NURSE ---
NG tube removed by Dr. Hernadez this morning at approximately 850am.
[2023-08-11 12:18] LABS: Glucose Point of Care 244 mg/dL (70-110)
--- NOTE | 2023-08-11 12:47 | P.PN_ITS ---
Subjective 2 Subjective: NG tube has been taken out Passing gas Had 2 bowel movements Tolerating clear liquids Patient is getting dehydrated I will continue D5 normal saline for today Request PT Her lactic acid is normal Contrast was seen in the colon and rectum Vitals/I&O/Wt Last Vital Signs Temp 98.4 F 08/11/23 11:03 Pulse 85 08/11/23 11:03 Resp 16 08/11/23 11:03 BP 170/82 08/11/23 11:03 Pulse Ox 93 08/11/23 11:03 O2 Del Method Nasal Cannula 08/11/23 11:03 O2 Flow Rate 3 08/11/23 08:00 08/10/23 08/11/23 08/11/23 22:59 06:59 14:59 Intake Total 1000 / 1000 480 / 480 Balance 1000 / 1000 480 / 480 Weight last 48 hrs Weight 105.279 kg Weight 105.687 kg Physical Exam 2 Narrative: Patient is very happy with the progress Abdomen soft Positive bowel sound Clinically very dehydrated Pleasant and cooperative She has 1.5 to 2 L of oxygen on as well No active chest pain or shortness of breath S1, S2 Hypertensive Data 08/11/23 05:07 08/11/23 05:07 A&P Assessment and plan (1) Nausea & vomiting: Qualifiers: Vomiting type: unspecified Qualified Code(s): R11.2 - Nausea with vomiting, unspecified (2) Small bowel obstruction: (3) Constipation: Plan SBO: Resolved Constipation: Improving Clear liquid diet today Removed NG tube Dehydration continue D5 normal saline, Lactic acid normal Request PT Plan to discharge by Sunday Full code Consistent carb liquid diet along insulin sliding scale Attestations 2 Medical Necessity Statement*: Continue medical management Diagnoses Nausea & vomiting R11.2 Vomiting type: unspecified Small bowel obstruction K56.609 Constipation K59.00
[2023-08-11] MEDS: insulin lispro 100 unit/1 mL SUBCUT ×2 (13:24→18:11)
[2023-08-11] MEDS: polyethylene glycol 3350 Pkt 17 gm PO (13:25)
[2023-08-11] MEDS: metoprolol tartrate 25 mg Tablet PO ×2 (13:25→18:11)
[2023-08-11 17:33] LABS: Glucose Point of Care 187 mg/dL (70-110)
[2023-08-11 20:47] LABS: Glucose Point of Care 173 mg/dL (70-110)
[2023-08-12] VITALS (12 sets, daily range): BP systolic 112–149; BP diastolic 54–71; PULSE 65–81; RESP 16–18; TEMP 36.2–36.8; O2SAT 90–97
[2023-08-12] MEDS: HYDROmorphone 1 mg/mL INJ 1 mL IVP ×4 (00:09→20:03)
[2023-08-12] MEDS: ondansetron 2 mg/ML SDV 2 mL 4 MG IVP (00:14)
[2023-08-12 00:27] LABS: Lactate (Lactic Acid level) 0.9 mmol/L (0.5-2.2)
[2023-08-12 01:39] LABS: Glucose Point of Care 174 mg/dL (70-110)
[2023-08-12 04:28] LABS: Blood Urea Nitrogen 14 mg/dL (8-23); Calcium 9.5 mg/dL (8.5-10.5); Carbon Dioxide 25 mmol/L (22-29); Chloride 99 mmol/L (98-107); Glucose 127 mg/dL (65-115); Osmolality Calculated 280 mOsm/kg (285-295); Sodium 134 mmol/L (136-145)
[2023-08-12 04:29] LABS: Anion Gap 14.9 (5-19); Potassium 4.9 mmol/L (3.5-5.1)
[2023-08-12] MEDS: pantoprazole 40 mg SDV IVP (05:28)
[2023-08-12] MEDS: enoxaparin 40 mg/0.4 mL Syringe SUBCUT (05:28)
[2023-08-12] MEDS: levothyroxine 88 mcg Tablet PO (05:28)
[2023-08-12 06:44] LABS: Glucose Point of Care 177 mg/dL (70-110)
[2023-08-12] MEDS: metoprolol tartrate 25 mg Tablet PO ×2 (08:52→18:16)
[2023-08-12] MEDS: insulin lispro 100 unit/1 mL SUBCUT ×3 (08:52→18:15)
[2023-08-12] MEDS: levothyroxine 100 mcg SDV 44 MCG IVP (08:52)
--- NOTE | 2023-08-12 10:37 | PM.PN ---
Subjective Subjective: Daphney Thomas is a 83 year old female who was admitted with a partial small bowel obstruction. Over the last 4 hours patient has tolerated diet well still complains of abdominal pain. Gastrografin trial done yesterday show evidence of complete resolution and transit of the contrast all the way down to the colon, patient has had several bowel movements since then. Vitals/I&O/Wt Last Vital Signs Temp 97.1 F L 08/12/23 08:00 Pulse 81 08/12/23 08:00 Resp 18 08/12/23 08:00 BP 149/70 08/12/23 08:00 Pulse Ox 97 08/12/23 08:00 O2 Del Method Nasal Cannula 08/12/23 08:00 O2 Flow Rate 3 08/11/23 20:00 08/11/23 08/12/23 08/12/23 22:59 06:59 14:59 Intake Total 720 / 1320 1360 / 1360 Balance 720 / 1320 1360 / 1360 Weight last 48 hrs Weight 240 lb 8 oz Weight 232 lb 1.6 oz Physical Exam GI: OTHER: Abdomen is soft, mildly tender to palpation, overall benign abdominal exam. Data 08/11/23 05:07 08/12/23 03:49 A&P Assessment and plan (1) Small bowel obstruction: Plan Patient partial small bowel obstruction has resolved. I suspect that majority of patient current issues are related to chronic functional problems of the small bowel and large bowel. She appears to have a very delayed motility that may be causing her symptoms. My recommendation is to continue her on a very strict bowel regimen and upon discharge patient should go home on a low residue diet. If there is persistent of symptoms we may consider starting Reglan in order to increase bowel motility. There is no evidence of complete obstruction and Gastrografin trial show evidence of good contrast transit into the colon. No surgical intervention is indicated at this time. We should continue with medical management. Attestations Medical Necessity Statement*: Per medical team Coding Level of Care Code Acute Code for [facility] Diagnoses Small bowel obstruction K56.609
--- NOTE | 2023-08-12 11:05 | XRR_ITS ---
PROCEDURE INFORMATION: Exam: XR Abdomen Exam date and time: 08/12/2023 11:57 AM Age: 83 years old Clinical indication: Abdominal pain; Additional info: Abd pain TECHNIQUE: Imaging protocol: Radiologic exam of the abdomen. Views: Frontal supine view of the abdomen. 1 View. COMPARISON: CR (ABDOMEN, ) 08/11/2023 7:28 AM FINDINGS: Tubes, catheters and devices: The NG tube has been removed Gastrointestinal tract: A large portion the previously noted colonic contrast has now been evacuated and only a small amount remains in the colon and rectum. There has been some improvement in the degree of dilatation of small bowel loops. Intraperitoneal space: There are surgical clips in the right upper quadrant. Bones/joints: Patient has undergone previous vertebroplasty. There are degenerative changes in the spine. XR/XR KUB portable [id number] IMPRESSION: 1. Majority of oral contrast is now been evacuated. There is less dilatation of small bowel loops. 2. Findings are thought to be consistent with either and improving adynamic ileus or improving partial small bowel obstruction.
--- NOTE | 2023-08-12 11:12 | P.PN_ITS ---
Subjective 2 Subjective: This morning patient is complaining of pain stating that she had her breakfast and then pain got worse I will request stat KUB Continue IV fluids No bowel movement after 2 episodes yesterday ripsaw matcher Vitals/I&O/Wt Last Vital Signs Temp 97.1 F L 08/12/23 08:00 Pulse 81 08/12/23 08:00 Resp 16 08/12/23 11:10 BP 149/70 08/12/23 08:00 Pulse Ox 97 08/12/23 08:00 O2 Del Method Nasal Cannula 08/12/23 08:00 O2 Flow Rate 3 08/11/23 20:00 08/11/23 08/12/23 08/12/23 22:59 06:59 14:59 Intake Total 720 / 1320 1360 / 1360 Balance 720 / 1320 1360 / 1360 Weight last 48 hrs Weight 109.089 kg Weight 105.279 kg Physical Exam 2 Narrative: Abdomen tender on palpation hypogastric region No active emesis Currently on 1.5 L Awake and alert In distress No active shortness of breath or chest pain Data 08/11/23 05:07 08/12/23 03:49 A&P Assessment and plan (1) Nausea & vomiting: Qualifiers: Vomiting type: unspecified Qualified Code(s): R11.2 - Nausea with vomiting, unspecified (2) Small bowel obstruction: (3) Constipation: (4) Abdominal pain: Qualifiers: Abdominal location: lower abdomen, unspecified Qualified Code(s): R 10.30 - Lower abdominal pain, unspecified Plan Recurrent abdominal pain No active emesis Complaint abdominal pain Change diet to n.p.o. again Request KUB Patient had breakfast this morning No bowel movement since yesterday 2 episodes Continue IV fluids Full code Hold DVT prophylaxis Hypernatremia improved Attestations 2 Medical Necessity Statement*: Continue medical management Diagnoses Nausea & vomiting R11.2 Vomiting type: unspecified Small bowel obstruction K56.609 Constipation K59.00 Abdominal pain R10.30 Abdominal location: lower abdomen, unspecified
[2023-08-12 12:14] LABS: Glucose Point of Care 158 mg/dL (70-110)
[2023-08-12] MEDS: dextrose 5%-sod chloride 0.9% 1,000 ML 30 ML IV (13:02)
[2023-08-12 13:08] LABS: Eosinophils # 0.3 10^3/uL (0.0-0.8); Eosinophils % 4.7 %; Hematocrit 31.6 % (36-47); Lymphocytes # 1.4 10^3/uL (0.8-4.8); Lymphocytes % 24.6 %; Mean Corpuscular HGB Conc 31.3 g/dL (30-55); Mean Corpuscular Hemoglobin 30.8 pg (27-33); Mean Corpuscular Volume 98.4 fl (85-98); Mean Platelet Volume 10.3 fL (7.4-10.4); Monocytes # 0.5 10^3/uL (0.2-0.9); Monocytes % 8.9 %; Neutrophils % 61.6 %; Nucleated Red Blood Cells % 0 %; Platelet Count 150 10^3/cmm (157-399); Red Blood Count 3.21 10^6/uL (3.85-5.65); Red Cell Distribution Width 12.4 % (12.1-15.1); White Blood Count 5.52 10^3/uL (3.29-11.43)
[2023-08-12 13:27] LABS: Lactate (Lactic Acid level) 0.7 mmol/L (0.5-2.2)
[2023-08-12] MEDS: magnesium citrate Btl 296 mL 150 ML PO (13:52)
[2023-08-12 16:31] LABS: Glucose Point of Care 161 mg/dL (70-110)
[2023-08-12] MEDS: magnesium hydroxide 30 mL UDC PO (20:03)
[2023-08-12] MEDS: acetaminophen 325 mg Tablet 650 MG PO (20:04)
[2023-08-12 20:50] LABS: Glucose Point of Care 215 mg/dL (70-110)
[2023-08-13] VITALS (9 sets, daily range): BP systolic 120–179; BP diastolic 71–85; PULSE 60–75; RESP 16–18; TEMP 36.5–36.8; O2SAT 94–98
[2023-08-13] MEDS: levothyroxine 88 mcg Tablet PO (05:10)
[2023-08-13] MEDS: pantoprazole 40 mg SDV IVP (05:10)
[2023-08-13 05:48] LABS: Basophils % 0.2 %; Eosinophils # 0.2 10^3/uL (0.0-0.8); Eosinophils % 4.5 %; Hematocrit 33.8 % (36-47); Lymphocytes # 1.4 10^3/uL (0.8-4.8); Lymphocytes % 27.6 %; Mean Corpuscular HGB Conc 30.5 g/dL (30-55); Mean Corpuscular Volume 98.5 fl (85-98); Mean Platelet Volume 9.9 fL (7.4-10.4); Monocytes # 0.4 10^3/uL (0.2-0.9); Monocytes % 8.1 %; Neutrophils # 2.92 10^3/uL (1.8-7.7); Neutrophils % 59.4 %; Nucleated Red Blood Cells % 0 %; Platelet Count 161 10^3/cmm (157-399); Red Blood Count 3.43 10^6/uL (3.85-5.65); Red Cell Distribution Width 12.4 % (12.1-15.1); White Blood Count 4.92 10^3/uL (3.29-11.43)
[2023-08-13 06:07] LABS: Anion Gap 8.9 (5-19); Blood Urea Nitrogen 12 mg/dL (8-23); Calcium 9.7 mg/dL (8.5-10.5); Carbon Dioxide 34 mmol/L (22-29); Chloride 101 mmol/L (98-107); Glucose 146 mg/dL (65-115); Osmolality Calculated 292 mOsm/kg (285-295); Potassium 3.9 mmol/L (3.5-5.1); Sodium 140 mmol/L (136-145)
[2023-08-13 06:55] LABS: Glucose Point of Care 143 mg/dL (70-110)
--- NOTE | 2023-08-13 08:18 | PC.SOCIAL ---
IMM Update Pg. 2 of IMM updated and reviewed with patient who verbalized understanding. Copy provided.
[2023-08-13] MEDS: insulin lispro 100 unit/1 mL SUBCUT ×3 (08:26→17:51)
[2023-08-13] MEDS: metoprolol tartrate 25 mg Tablet PO ×2 (08:26→17:51)
[2023-08-13] MEDS: levothyroxine 100 mcg SDV 44 MCG IVP (09:41)
[2023-08-13] MEDS: acetaminophen 325 mg Tablet 650 MG PO ×2 (10:54→19:44)
--- NOTE | 2023-08-13 11:33 | P.PN_ITS ---
Subjective 2 Subjective: In the last 24 hours patient has remained stable, not complaining of significant abdominal pain this morning. He has been tolerating full liquid diet, after bowel regimen patient has had 2 more bowel movements last 1 this morning. She is passing gas. Clinically appears deconditioned and dehydrated. Vitals/I&O/Wt Last Vital Signs Temp 98.0 F 08/13/23 07:40 Pulse 75 08/13/23 07:40 Resp 16 08/13/23 07:40 BP 167/77 08/13/23 07:40 Pulse Ox 98 08/13/23 07:40 O2 Del Method Nasal Cannula 08/13/23 07:40 O2 Flow Rate 3 08/13/23 08:00 08/12/23 08/13/23 08/13/23 22:59 06:59 14:59 Intake Total 840 / 2200 Balance 840 / 2200 Weight last 48 hrs Weight 239 lb 6 oz Weight 240 lb 8 oz Physical Exam 2 GI: OTHER: Abdomen is soft, minimal distention, minimal tenderness to palpation. Overall benign abdominal exam. Data 08/13/23 05:32 08/13/23 05:32 A&P Assessment and plan (1) Small bowel obstruction: Plan Patient partial small bowel obstruction has resolved. I suspect that majority of patient current issues are related to chronic functional problems of the small bowel and large bowel. She appears to have a very delayed motility that may be causing her symptoms. My recommendation is to continue her on a very strict bowel regimen and upon discharge patient should go home on a low residue diet. If there is persistent of symptoms we may consider starting Reglan in order to increase bowel motility. There is no evidence of complete obstruction and Gastrografin trial show evidence of good contrast transit into the colon. No surgical intervention is indicated at this time. We should continue with medical management. Attestations 2 Medical Necessity Statement*: Per medical team Coding Level of Care Code Acute Code for [facility] Diagnoses Small bowel obstruction K56.609
[2023-08-13 11:45] LABS: Glucose Point of Care 183 mg/dL (70-110)
--- NOTE | 2023-08-13 12:34 | P.PN_ITS ---
Subjective 2 Subjective: Patient had multiple bowel movements, I have encouraged patient to get out of bed Requesting PT Plan to discharge her by tomorrow if she is tolerating diet She has had multiple bowel movement since yesterday Vitals/I&O/Wt Last Vital Signs Temp 98.0 F 08/13/23 07:40 Pulse 75 08/13/23 07:40 Resp 16 08/13/23 07:40 BP 167/77 08/13/23 07:40 Pulse Ox 98 08/13/23 07:40 O2 Del Method Nasal Cannula 08/13/23 07:40 O2 Flow Rate 3 08/13/23 08:00 08/12/23 08/13/23 08/13/23 22:59 06:59 14:59 Intake Total 840 / 2200 Balance 840 / 2200 Weight last 48 hrs Weight 108.579 kg Weight 109.089 kg Physical Exam 2 Narrative: Awake and alert Abdomen soft, bowel sound present IV fluids at bedside Currently on room air Pleasant cough GCS 15 Data 08/13/23 05:32 08/13/23 05:32 A&P Assessment and plan (1) Nausea & vomiting: Qualifiers: Vomiting type: unspecified Qualified Code(s): R11.2 - Nausea with vomiting, unspecified (2) Constipation: (3) Small bowel obstruction: (4) Abdominal pain: Qualifiers: Abdominal location: lower abdomen, unspecified Qualified Code(s): R 10.30 - Lower abdominal pain, unspecified Plan Constipation related obstruction relieved Patient is having regular bowel movements now Advance diet I have encouraged patient to get out of bed and walk around Request PT Plan to arrange home health to discharge her by tomorrow Discontinue IV fluids Sugar within normal range Full code GI soft diet Attestations 2 Medical Necessity Statement*: Discharge hopefully tomorrow Diagnoses Nausea & vomiting R11.2 Vomiting type: unspecified Constipation K59.00 Small bowel obstruction K56.609 Abdominal pain R10.30 Abdominal location: lower abdomen, unspecified
[2023-08-13 17:54] LABS: Glucose Point of Care 144 mg/dL (70-110)
[2023-08-13] MEDS: HYDROmorphone 1 mg/mL INJ 1 mL IVP (20:30)
[2023-08-13] MEDS: magnesium hydroxide 30 mL UDC PO (20:31)
[2023-08-13 23:38] LABS: Glucose Point of Care 167 mg/dL (70-110)
[2023-08-14] VITALS (13 sets, daily range): BP systolic 134–177; BP diastolic 68–94; PULSE 57–78; RESP 16–18; TEMP 36.5–37.2; O2SAT 93–97; BMI 37.4
[2023-08-14] MEDS: HYDROmorphone 1 mg/mL INJ 1 mL IVP ×3 (01:20→23:18)
[2023-08-14] MEDS: pantoprazole 40 mg SDV IVP (05:05)
[2023-08-14] MEDS: levothyroxine 88 mcg Tablet PO (05:05)
[2023-08-14] MEDS: enoxaparin 40 mg/0.4 mL Syringe SUBCUT (05:05)
[2023-08-14 05:54] LABS: Glucose Point of Care 149 mg/dL (70-110)
[2023-08-14] MEDS: metoprolol tartrate 25 mg Tablet PO ×2 (08:53→17:56)
[2023-08-14] MEDS: insulin lispro 100 unit/1 mL SUBCUT ×3 (08:53→17:56)
[2023-08-14] MEDS: polyethylene glycol 3350 Pkt 17 gm PO (08:53)
--- NOTE | 2023-08-14 09:05 | XR_ITS ---
WS: [id number] XR KUB portable [id number] REASON FOR EXAM: abd pain FINDINGS: No free air or retroperitoneal air. Gas throughout the right and transverse colon. Gas in the rectosigmoid colon and within the rectum. C olon nondistended. Multiple gas-filled moderately dilated small bowel loops in the central lower abdomen. This bowel gas pattern is relatively unchanged compared to 08/12/2023. No new findings. IMPRESSION: Stable abnormal examination as above.
--- NOTE | 2023-08-14 09:05 | P.PN_ITS ---
Subjective 2 Subjective: Patient stating that every time she eats she gets pain in her stomach Never had any history of gastric ulcer Will touch with general surgery to see if he can do EGD She is asking for Zofran Currently on GI soft diet Vitals/I&O/Wt Last Vital Signs Temp 97.7 F 08/14/23 07:48 Pulse 67 08/14/23 07:48 Resp 17 08/14/23 07:48 BP 168/73 08/14/23 07:48 Pulse Ox 94 08/14/23 07:48 O2 Del Method Nasal Cannula 08/14/23 07:48 O2 Flow Rate 2 08/14/23 00:00 08/13/23 08/14/23 08/14/23 22:59 06:59 14:59 Intake Total 380 / 1218.5 Balance 380 / 1218.5 Weight last 48 hrs Weight 108.409 kg Weight 108.579 kg Physical Exam 2 Narrative: Patient is eating breakfast Currently on room air Pleasant cough Complaining abdominal pain Abdomen nontender Distended Bowel sound present Signs of dehydration improving S1, S2 Data 08/13/23 05:32 08/13/23 05:32 A&P Assessment and plan (1) Nausea & vomiting: Qualifiers: Vomiting type: unspecified Qualified Code(s): R11.2 - Nausea with vomiting, unspecified (2) Small bowel obstruction: (3) Constipation: (4) Abdominal pain: Qualifiers: Abdominal location: lower abdomen, unspecified Qualified Code(s): R 10.30 - Lower abdominal pain, unspecified Plan SBO: Ileus: Resolving Patient is endorsing abdominal pain every time she is eating No previous history of gastric ulcer Will touch with general surgery to see if she would be a good candidate for an EGD during this hospitalization I will give her 1 dose of Zofran and request KUB She did work with PT to some extent yesterday Will arrange home health when she is ready to be discharged Full code Continue GI soft Attestations 2 Medical Necessity Statement*: Continue hospitalization Diagnoses Nausea & vomiting R11.2 Vomiting type: unspecified Small bowel obstruction K56.609 Constipation K59.00 Abdominal pain R10.30 Abdominal location: lower abdomen, unspecified
[2023-08-14 10:57] LABS: Glucose Point of Care 204 mg/dL (70-110)
[2023-08-14] MEDS: ondansetron 2 mg/ML SDV 2 mL 4 MG IVP (11:11)
[2023-08-14] MEDS: acetaminophen 325 mg Tablet 650 MG PO ×2 (12:11→17:56)
--- NOTE | 2023-08-14 15:05 | P.PN_ITS ---
Subjective 2 Subjective: Patient has remained stable. She is having bowel function and passing gas and having bowel movements. The patient still complains of pain in the abdomen after eating. After discussion with medical team we have decided to proceed with endoscopy tomorrow. Vitals/I&O/Wt Last Vital Signs Temp 98.0 F 08/14/23 11:50 Pulse 67 08/14/23 14:00 Resp 16 08/14/23 11:50 BP 164/77 08/14/23 11:50 Pulse Ox 94 08/14/23 11:50 O2 Del Method Nasal Cannula 08/14/23 11:50 O2 Flow Rate 2 08/14/23 08:00 08/14/23 08/14/23 08/14/23 06:59 14:59 22:59 Intake Total 240 / 240 Balance 240 / 240 Weight last 48 hrs Weight 239 lb Weight 239 lb 6 oz Physical Exam 2 GI: OTHER: Abdomen is soft and nontender, there is minimal distention, active bowel sounds. Data 08/13/23 05:32 08/13/23 05:32 A&P Assessment and plan (1) Small bowel obstruction: (2) Abdominal pain: Qualifiers: Abdominal location: lower abdomen, unspecified Qualified Code(s): R 10.30 - Lower abdominal pain, unspecified Plan As stated in my previous notes I believe that the patient current symptoms are mostly related to a functional issue with her intestine rather than a mechanical problem. Due to postprandial pain in the abdomen and after discussion with medical team I have decided to offer an upper endoscopy for evaluation for possible pathology that may be causing this. I have discussed with the patient the risk and benefits of the procedure including the risk of perforation of the esophagus stomach and duodenum resulting in the need for emergent surgical intervention or transfer to higher level of care. There is also risk of bleeding, need for additional procedures, aspiration, missed pathology, patient understand the risks and wishes to proceed. Patient will be held n.p.o. at midnight for procedure tomorrow. Attestations 2 Medical Necessity Statement*: Per medical team Coding Level of Care Code Acute Code for [facility] Diagnoses Small bowel obstruction K56.609 Abdominal pain R10.30 Abdominal location: lower abdomen, unspecified
[2023-08-14 17:16] LABS: Glucose Point of Care 146 mg/dL (70-110)
[2023-08-14] MEDS: magnesium hydroxide 30 mL UDC PO (20:46)
[2023-08-14 21:13] LABS: Glucose Point of Care 150 mg/dL (70-110)
[2023-08-15] VITALS (20 sets, daily range): BP systolic 159–199; BP diastolic 66–97; PULSE 60–77; RESP 14–22; TEMP 36.2–36.7; O2SAT 89–99
[2023-08-15] MEDS: ondansetron 2 mg/ML SDV 2 mL 4 MG IVP ×2 (01:54→19:21)
[2023-08-15] MEDS: pantoprazole 40 mg SDV IVP ×2 (04:36→20:24)
[2023-08-15] MEDS: levothyroxine 88 mcg Tablet PO (05:21)
[2023-08-15 05:50] LABS: Anion Gap 9.9 (5-19); Blood Urea Nitrogen 11 mg/dL (8-23); Calcium 9.7 mg/dL (8.5-10.5); Carbon Dioxide 33 mmol/L (22-29); Chloride 99 mmol/L (98-107); Glucose 141 mg/dL (65-115); Osmolality Calculated 288 mOsm/kg (285-295); Potassium 3.9 mmol/L (3.5-5.1); Sodium 138 mmol/L (136-145)
[2023-08-15 07:12] LABS: Glucose Point of Care 182 mg/dL (70-110)
[2023-08-15] MEDS: metoprolol tartrate 25 mg Tablet PO ×2 (09:25→17:33)
[2023-08-15 10:48] LABS: Glucose Point of Care 201 mg/dL (70-110)
--- NOTE | 2023-08-15 11:15 | P.HPUD_ITS ---
Surgery/Procedure H&P Update DATE OF PROCEDURE: August 15, 2023 DATE H&P PERFORMED: 08/14/23 H&P UPDATE INFORMATION: I have reviewed H&P completed within last 30 days, I have examined patient prior to procedure, No changes to prior documentation and H&P is in [facility] EMR on date indicated PLANNED PROCEDURE: Operation Date: 08/15/23 12:00 Proposed Procedures p EGD(Not Applicable) - Manish Hernadez MD
--- NOTE | 2023-08-15 11:23 | P.ANESASSM_ITS ---
Pre-Anesthetic Assessment Height/Weight: Height 1.7 m Weight 108.862 kg Temp Pulse Resp BP Pulse Ox O2 Del Method O2 Flow Rate 98.1 F 73 16 184/82 97 Nasal Cannula 2 08/15/23 08:00 08/15/23 08:00 08/15/23 08:00 08/15/23 08:00 08/15/23 08:00 08/15/23 08:00 08/14/23 20:00 Operation Date: 08/15/23 12:00 Proposed Procedures p EGD(Not Applicable) - Manish Hernadez MD Was Beta Nimco taken within 24 hours: Yes Last intake: Intake Last Liquid Date 08/14/23 Last Liquid Time 22:00 Social No alcohol and No tobacco Exam alert, oriented x 3, clear to auscultation bilaterally and regular rate & rhythm Airway Submandibular: within normal limits Cervical ROM: Other (very limited ROM) Mallampati: Class II Dentition: other (edentulous) Pulmonary Shortness of Breath CV/HEM Congestive Heart Failure and Hypertension incontinence Hepatic None reported GI Gastroesophageal Reflux Disease and Hiatal Hernia Metabolic Diabetes Mellitus, Hyperlipidemia, Morbid Obesity and Thyroid Disease Musc/skel Lower Back Pain, Osteoarthritis/DJD and Weakness Neuropsych Anxiety Anesthetic Plan ASA status: 3 Anesthesia: General Medications/Allergies Home Medications Medication Instructions Recorded Confirmed Last Taken Type citalopram 20 mg tablet 20 mg PO QAM 06/09/21 08/08/23 06/09/21 History glimepiride 2 mg tablet 2 mg PO BEDTIME 06/09/21 08/08/23 06/09/21 History levothyroxine 88 mcg tablet 88 mcg PO QAM 06/09/21 08/08/23 06/09/21 History (Synthroid) multivitamin 1 tab PO DAILY 06/09/21 08/08/23 06/09/21 History olanzapine 10 mg tablet 10 mg PO BEDTIME 06/09/21 08/08/23 06/08/21 History olanzapine 5 mg tablet 5 mg PO QAM 06/09/21 08/08/23 06/09/21 History omega 5-kyb-lri-fish oil 1,200 mg 1 cap PO BID 06/09/21 08/08/23 06/09/21 History (144 mg-216 mg) capsule (Fish Oil) amlodipine 5 mg tablet 5 mg PO QAM 08/09/21 08/08/23 Unknown History hydroxyzine pamoate 25 mg capsule 25 mg PO TID PRN Anxiety #90 caps 05/24/22 08/08/23 Unknown Rx carbamazepine 200 mg tablet 200 mg PO BID #60 tabs 09/18/22 08/08/23 Unknown Rx FAST FORM COCK UP SPLINT #1 ea 10/18/22 08/08/23 Unknown Rx cholecalciferol (vitamin D3) 75 6,000 unit PO DAILY 10/18/22 08/08/23 Unknown History mcg (3,000 unit) tablet rosuvastatin 20 mg tablet 20 mg PO BEDTIME 10/18/22 08/08/23 Unknown History Lactobacillus rhamnosus-Bifidobac. 1 cap PO DAILY 08/08/23 08/08/23 Unknown History animalis 3 billion cell capsule (Scaleform) cyanocobalamin (vitamin B-12) 1 ml PO DAILY 08/08/23 08/08/23 Unknown History 1,000 mcg/mL oral drops (Vitamin B-12) ferrous sulfate 325 mg (65 mg 325 mg PO QAM 08/08/23 08/08/23 Unknown History iron) tablet (iron) furosemide 20 mg tablet (Lasix) 20 mg PO QAM 08/08/23 08/08/23 Unknown History gabapentin 100 mg capsule 100 mg PO BID PRN unknown 08/08/23 08/08/23 Unknown History loratadine 10 mg tablet 10 mg PO DAILY 08/08/23 08/08/23 Unknown History metoprolol tartrate 25 mg tablet 25 mg PO BID 08/08/23 08/08/23 Unknown History potassium gluconate 595 mg (99 mg) 595 mg PO .UP TO QID 08/08/23 08/08/23 Unknown History tablet sitagliptin phosphate 100 mg 100 mg PO QAM 08/08/23 08/08/23 Unknown History tablet (Januvia) Allergies Allergy/AdvReac Type Severity Reaction Status Date / Time No Known Allergies Allergy Verified 08/08/23 07:54 Current Medications Generic Name Dose Route Start Last Admin Trade Name Freq PRN Reason Stop Dose Admin Acetaminophen 650 mg 08/08/23 04:41 08/14/23 17:56 Acetaminophen 325 Mg Tablet PO 650 mg Q6H PRN Administration Mild/Mod Pain Or Temp >/= 101 Enoxaparin Sodium 40 mg 08/08/23 04:41 08/15/23 04:35 Enoxaparin 40 Mg/0.4 Ml Syringe SUBCUT Not Given Q24H KATHIE Insulin Human Lispro 0 unit 08/08/23 08:00 08/15/23 08:30 Insulin Lispro 100 Unit/1 Ml SUBCUT Not [facility] Protocol Levothyroxine Sodium 88 mcg 08/12/23 06:00 08/15/23 05:21 Levothyroxine 88 Mcg Tablet PO 88 mcg QAM KATHIE Administration Magnesium Hydroxide 30 ml 08/11/23 21:00 08/14/23 20:46 Magnesium Hydroxide 30 Ml Udc PO 30 ml BEDTIME KATHIE Administration Metoprolol Tartrate 25 mg 08/11/23 12:55 08/15/23 09:25 Metoprolol Tartrate 25 Mg Tablet PO 25 mg BID KATHIE Administration Ondansetron HCl 4 mg 08/08/23 04:41 08/15/23 01:54 Ondansetron 2 Mg/Ml Sdv 2 Ml IVP 4 mg Q8H PRN Administration vomiting, or N/V if npo Pantoprazole Sodium 40 mg 08/08/23 04:41 08/15/23 04:36 Pantoprazole 40 Mg Sdv IVP 40 mg Q24H KATHIE Administration Polyethylene Glycol 17 gm 08/11/23 12:00 08/15/23 08:30 Polyethylene Glycol 3350 Pkt 17 Gm PO Not Given DAILY KATHIE PFSH Anesthesia Medical History (Updated 08/11/23 @ 12:48 by Mike Raygoza MD) History of hypothyroidism History of hypertension History of type 2 diabetes mellitus Surgical History (Updated 08/08/23 @ 03:24 by Jay Wilks MD) History of hysterectomy History of cholecystectomy Family History (Updated 08/08/23 @ 03:25 by Jay Wilks MD) Mother CAD (coronary artery disease) Social History (Updated 08/08/23 @ 03:24 by Jay Wilks MD) Smoking and tobacco/nicotine status: never used tobacco/nicotine Alcohol intake: never Substance/Drug Use: never Data Anesthesia 08/13/23 05:32 08/15/23 05:17 BMP 08/15/23 05:17 Sodium 138 Potassium 3.9 Chloride 99 Carbon Dioxide 33 H BUN 11 Creatinine 0.8 Glucose 141 H Calcium 9.7 Cardiac Studies: 2 No Data to Display
[2023-08-15] MEDS: sodium chloride 0.9% 1,000 ML 30 ML IV (11:30)
--- NOTE | 2023-08-15 11:38 | P.PN_ITS ---
Subjective 2 Subjective: Plan for EGD Patient still coming down okay Abdomen soft Had multiple bowel movements Patient stating that she worked to some extent with PT? Vitals/I&O/Wt Last Vital Signs Temp 97.2 F L 08/15/23 11:18 Pulse 69 08/15/23 11:18 Resp 16 08/15/23 11:18 BP 176/86 08/15/23 11:18 Pulse Ox 93 08/15/23 11:18 O2 Del Method Room Air 08/15/23 11:18 O2 Flow Rate 2 08/14/23 20:00 08/14/23 08/15/23 08/15/23 22:59 06:59 14:59 Intake Total 120 / 360 Balance 120 / 360 Weight last 48 hrs Weight 108.862 kg Weight 108.409 kg Physical Exam 2 Narrative: Patient is laying very fatigued and lethargic in her bed Abdomen is very soft No sign of peritonitis however complains of pain with mild rebound tenderness hypogastric left lower quadrant Bowel sound present which are normal GCS 15Clinical signs of dehydration present Currently on room air Daughter is at the bedside S1, S2 Data 08/13/23 05:32 08/15/23 05:17 A&P Assessment and plan (1) Nausea & vomiting: Qualifiers: Vomiting type: unspecified Qualified Code(s): R11.2 - Nausea with vomiting, unspecified (2) Small bowel obstruction: (3) Constipation: (4) Abdominal pain: Qualifiers: Abdominal location: lower abdomen, unspecified Qualified Code(s): R 10.30 - Lower abdominal pain, unspecified Plan Will obtain CT abdomen pelvis as well she is still complaining of pain Rule out gastric ulcer No fever, no leukocytosis, patient still complaining abdominal pain Plan for EGD today Start IV fluids Signs of dehydration present Patient was encouraged to work with PT Abdominal exam is benign, no signs of peritonitis No active emesis Has had multiple bowel movements Appreciate general surgery recommendations Spoke with her daughter who is at the bedside Once her pain subsides we will discharge her home with home health services Attestations 2 Medical Necessity Statement*: Continue medical management Diagnoses Nausea & vomiting R11.2 Vomiting type: unspecified Small bowel obstruction K56.609 Constipation K59.00 Abdominal pain R10.30 Abdominal location: lower abdomen, unspecified
--- NOTE | 2023-08-15 11:54 | PC.SOCIAL ---
IMM Update pg 2 of IMM updated and reviewed w/ patient and her daughter. Copy provided and copy dated, initialed and placed in chart.
--- NOTE | 2023-08-15 12:14 | CTR_ITS ---
PROCEDURE INFORMATION: Exam: CT Abdomen And Pelvis Without Contrast Exam date and time: 08/15/2023 10:25 PM Age: 83 years old Clinical indication: Condition or disease; Other: Sbo; Additional info: Evaluate for persistent sbo TECHNIQUE: Imaging protocol: Computed tomography of the abdomen and pelvis without contrast. Radiation optimization: All CT scans at this facility use at least one of these dose optimization techniques: automated exposure control; mA and/or kV adjustment per patient size (includes targeted exams where dose is matched to clinical indication); or iterative reconstruction. COMPARISON: CT abdomen pelvis w con* [id number] 08/08/2023 12:54 AM RADIATION DOSE METRICS: Total DLP (mGy-cm): 987.34 FINDINGS: Lungs: Bibasilar atelectasis versus infiltrate. Emphysematous changes suspected. Heart: Right atrial 3.5 cm benign adenoma. Coronary arteries: Coronary artery atherosclerotic calcifications. Liver: Normal. No mass. Gallbladder and bile ducts: Cholecystectomy. Pancreas: Normal. No ductal dilation. Spleen: Normal. No splenomegaly. Adrenal glands: Normal. No mass. Kidneys and ureters: Perinephric edema bilaterally likely reflecting renal insufficiency. Stomach and bowel: Mildly prominent fluid in the small bowel without dilation may reflect an enteritis. Minimal diverticulosis without diverticulitis. Appendix: No evidence of appendicitis. Intraperitoneal space: Unremarkable. No free air. No significant fluid collection. Vasculature: Unremarkable. No abdominal aortic aneurysm. Lymph nodes: Unremarkable. No enlarged lymph nodes. Urinary bladder: Edema seen about the urinary bladder, please correlate for cystitis. Reproductive: Unremarkable as visualized. Bones/joints: L1 vertebroplasty changes. Soft tissues: Right lateral abdominal wall subcutaneous air, suggestive of an injection site. CT/CT abdomen pelvis wo con [id number] IMPRESSION: 1. Mildly prominent fluid in the small bowel without dilation may reflect an enteritis. 2. Edema seen about the urinary bladder, please correlate for cystitis. 3. Bibasilar atelectasis versus infiltrate. 4. Coronary artery atherosclerotic calcifications. 5. 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 6. Cholecystectomy. 7. Perinephric edema bilaterally likely reflecting renal insufficiency. 8. Minimal diverticulosis without diverticulitis. 9. Right lateral abdominal wall subcutaneous air, suggestive of an injection site. 10. Emphysematous changes suspected.
--- NOTE | 2023-08-15 12:28 | P.MISC_ITS ---
Miscellaneous Note Purpose of Documentation: Update on patient care Note: Upper endoscopy was done this morning. There is significant gastritis in the stomach, no retained food, there is some small amount of liquid in the stomach. Biopsies were taken, I advanced my scope to the first portion and second portion of the duodenum and there was no evidence of dilation. As my previous assessment I think majority of patient's symptoms are related to chronic funct ional problems of the small bowel as well as a possible partial small bowel obstruction. Patient has been having multiple bowel movements is passing gas and her abdominal exam is completely benign. I think at this point any kind of surgical intervention would have appropriate to risk due to the patient age and no evidence of a complete obstruction. Recommendation will be to continue the patient on full liquid diet and advance to low residue diet as tolerated. Patient should stay on stool softeners on a twice daily basis to allow her to have consistent bowel movements. I have reviewed documentation from medical team the plan to repeat CT scan of the abdomen and pelvis, I think is appropriate, I will follow-up the results of the CT scan and we will discuss with the medical team and family as needed.
--- NOTE | 2023-08-15 13:36 | PC.NURSE ---
1235 BP 199/91. Reported to Darwin LARKIN. No orders at this time, encouraged to report to floor RN for further treatment if necessary. 1300 reported blood pressure elevation to Soraida DRAKE on [facility] during bedside handoff.
[2023-08-15] MEDS: metoclopramide 5 mg/mL SDV 2 mL IVP (13:55)
[2023-08-15] MEDS: dextrose 5%-sod chloride 0.9% 1,000 ML 75 ML IV (13:56)
--- NOTE | 2023-08-15 14:11 | ANE.PACU2 ---
Inpatient post-anesthesia follow up: Airway intact: Yes Vital signs: Temperature 97.1 F Pulse Rate 71 Respiratory Rate 14 Blood Pressure 175/76 Pulse Oximetry 89 Oxygen Delivery Me thod Room Air Oxygen Flow Rate 2 Fraction of Inspir ed Oxygen Hydration adequate: Yes Nausea and vomiting: No Pain level: 2 Mental status: Baseline
[2023-08-15 16:54] LABS: Glucose Point of Care 187 mg/dL (70-110)
[2023-08-15] MEDS: insulin lispro 100 unit/1 mL SUBCUT (17:32)
[2023-08-15] MEDS: HYDROmorphone 1 mg/mL INJ 1 mL IVP (20:20)
[2023-08-15] MEDS: sucralfate 1 gm/10 mL Oral Liq UDC PO (20:24)
[2023-08-15 22:05] LABS: Glucose Point of Care 197 mg/dL (70-110)
[2023-08-16] VITALS (11 sets, daily range): BP systolic 169–192; BP diastolic 80–91; PULSE 65–77; RESP 16–18; TEMP 36.3–36.9; O2SAT 91–94; BMI 35.6
[2023-08-16] MEDS: HYDROmorphone 1 mg/mL INJ 1 mL IVP ×3 (00:57→19:36)
[2023-08-16] MEDS: enoxaparin 40 mg/0.4 mL Syringe SUBCUT (04:06)
[2023-08-16] MEDS: ondansetron 2 mg/ML SDV 2 mL 4 MG IVP (04:07)
[2023-08-16] MEDS: dextrose 5%-sod chloride 0.9% 1,000 ML 75 ML IV (04:08)
[2023-08-16 06:12] LABS: Eosinophils # 0.3 10^3/uL (0.0-0.8); Eosinophils % 4.8 %; Hematocrit 32.9 % (36-47); Lymphocytes # 1.9 10^3/uL (0.8-4.8); Lymphocytes % 31.9 %; Mean Corpuscular HGB Conc 32.2 g/dL (30-55); Mean Corpuscular Hemoglobin 30.8 pg (27-33); Mean Corpuscular Volume 95.6 fl (85-98); Mean Platelet Volume 11.4 fL (7.4-10.4); Monocytes # 0.4 10^3/uL (0.2-0.9); Neutrophils # 3.34 10^3/uL (1.8-7.7); Neutrophils % 55.6 %; Nucleated Red Blood Cells % 0 %; Platelet Count 188 10^3/cmm (157-399); Red Blood Count 3.44 10^6/uL (3.85-5.65); Red Cell Distribution Width 12.3 % (12.1-15.1); White Blood Count 6.01 10^3/uL (3.29-11.43)
[2023-08-16 06:31] LABS: Slide Review Slide Review Perform
[2023-08-16] MEDS: sucralfate 1 gm/10 mL Oral Liq UDC PO ×4 (06:31→20:26)
[2023-08-16] MEDS: levothyroxine 88 mcg Tablet PO (06:31)
[2023-08-16 06:33] LABS: Blood Urea Nitrogen 8 mg/dL (8-23); Calcium 9.8 mg/dL (8.5-10.5); Carbon Dioxide 31 mmol/L (22-29); Chloride 99 mmol/L (98-107); Glucose 146 mg/dL (65-115); Osmolality Calculated 287 mOsm/kg (285-295); Sodium 138 mmol/L (136-145)
[2023-08-16 07:19] LABS: Glucose Point of Care 174 mg/dL (70-110)
[2023-08-16] MEDS: polyethylene glycol 3350 Pkt 17 gm PO (08:31)
[2023-08-16] MEDS: metoprolol tartrate 25 mg Tablet PO ×2 (08:31→16:44)
[2023-08-16] MEDS: pantoprazole 40 mg SDV IVP ×2 (08:31→20:26)
[2023-08-16] MEDS: insulin lispro 100 unit/1 mL SUBCUT ×2 (08:31→11:32)
[2023-08-16] MEDS: piperacillin-tazobactam 3.375 GM in sodium chloride 0.9% (plus) 50 ML IV (08:32)
--- NOTE | 2023-08-16 10:40 | P.PN_ITS ---
Subjective 2 Subjective: This morning patient stating that she is feeling much better White count normal Having bowel movement CT abdomen consistent with enteritis She is endorsing signs of UTI Currently on Zosyn She has been started on Protonix and sucralfate For gastritis discovered on EGD Vitals/I&O/Wt Last Vital Signs Temp 98.2 F 08/16/23 07:45 Pulse 77 08/16/23 07:45 Resp 16 08/16/23 07:45 BP 175/91 08/16/23 07:45 Pulse Ox 91 08/16/23 07:45 O2 Del Method Room Air 08/16/23 07:45 O2 Flow Rate 2 08/14/23 20:00 08/15/23 08/16/23 08/16/23 22:59 06:59 14:59 Intake Total 240 / 1140 1000 / 2140 240 / 240 Balance 240 / 1140 1000 / 2140 240 / 240 Weight last 48 hrs Weight 103.419 kg Weight 108.862 kg Physical Exam 2 Narrative: Pleasant cough GCS 15 Sitting in a recliner Looks more hydrated as compared to yesterday Pleasant Nonfocal neuroexam Doing well on room air S1, S2 Data 08/16/23 05:36 08/16/23 05:36 A&P Assessment and plan (1) Nausea & vomiting: Qualifiers: Vomiting type: unspecified Qualified Code(s): R11.2 - Nausea with vomiting, unspecified (2) Constipation: (3) Abdominal pain: Qualifiers: Abdominal location: lower abdomen, unspecified Qualified Code(s): R 10.30 - Lower abdominal pain, unspecified (4) Small bowel obstruction: (5) Gastritis: (6) UTI (urinary tract infection): (7) Enteritis: Plan Enteritis, UTI, cystitis Gastritis Currently on Protonix closely Started on Zosyn Request urine culture Plan to discharge tomorrow if feeling better Home health services has been arranged already Discontinue IV fluids Patient is having regular bowel movement Constipation: Resolved Appreciate general surgery recommendations Attestations 2 Medical Necessity Statement*: Discharge likely tomorrow Diagnoses Nausea & vomiting R11.2 Vomiting type: unspecified Constipation K59.00 Abdominal pain R10.30 Abdominal location: lower abdomen, unspecified Small bowel obstruction K56.609 Gastritis K29.70 UTI (urinary tract infection) N39.0 Enteritis K52.9
[2023-08-16 10:52] LABS: Glucose Point of Care 222 mg/dL (70-110)
--- NOTE | 2023-08-16 13:11 | P.PN_ITS ---
Subjective 2 Subjective: Patient has remained stable in the last 24 hours. She has been tolerating diet and still having bowel movements. Still complains of postprandial pain especially in the mid abdomen. Vitals/I&O/Wt Last Vital Signs Temp 97.4 F L 08/16/23 10:41 Pulse 67 08/16/23 10:41 Resp 16 08/16/23 12:21 BP 169/80 08/16/23 10:41 Pulse Ox 92 08/16/23 12:21 O2 Del Method Room Air 08/16/23 07:45 O2 Flow Rate 2 08/14/23 20:00 08/15/23 08/16/23 08/16/23 22:59 06:59 14:59 Intake Total 240 / 1140 1000 / 2140 847.47 / 847.47 Balance 240 / 1140 1000 / 2140 847.47 / 847.47 Weight last 48 hrs Weight 228 lb Weight 240 lb Physical Exam 2 GI: OTHER: Abdomen is soft, nontender, nondistended this time. There is good bowel sounds. Data 08/16/23 05:36 08/16/23 05:36 A&P Assessment and plan (1) Abdominal pain: Qualifiers: Abdominal location: lower abdomen, unspecified Qualified Code(s): R 10.30 - Lower abdominal pain, unspecified Plan 83-year-old female who was initially admitted for suspicion of SBO. During hospital stay Gastrografin trial was done showing evidence of good progression of the contrast into the colon and patient has had regular bowel movements and passing gas since then. Unfortunately she has also been complaining of some abdominal pain after eating. I did an endoscopy yesterday which show evidence of only mild gastritis no other significant changes, no retained fluid in the stomach and also with no significant distention of the duodenum. A CT scan of the abdomen pelvis was obtained by medical team to evaluate for recurrent obstruction of other pathology. CAT scan is negative for evidence of pathology other than mildly prominent small bowel loops which may represent enteritis. At this point there is no additional intervention that I can offer from the general surgery standpoint to improve patient clinical condition. I think it would be reasonable to continue stool softeners and low residue diet as tolerated. I think part of the patient complaints may improve if she is able to work more with physical therapy and ambulate which will stimulate her bowel function. In addition Reglan 5 mg every 8 hours can be consider in order to improve mobility in the intestine and facilitate bowel function. All other management per medical team is appreciated. Attestations 2 Medical Necessity Statement*: Per medical team Coding Level of Care Code Acute Code for Chg Fwd Diagnoses Abdominal pain R10.30 Abdominal location: lower abdomen, unspecified
[2023-08-16 14:24] LABS: Clostridium Difficile PCR DETECTED (NOT DETECTED)
[2023-08-16 16:28] LABS: Glucose Point of Care 137 mg/dL (70-110)
[2023-08-16] MEDS: vancomycin 125 mg Capsule PO ×2 (16:44→20:26)
[2023-08-16 22:02] LABS: Glucose Point of Care 176 mg/dL (70-110)
[2023-08-16] MEDS: amlodipine 5 mg Tablet PO (22:33)
[2023-08-17] VITALS (11 sets, daily range): BP systolic 164–177; BP diastolic 67–86; PULSE 64–77; RESP 15–19; TEMP 36.4–36.9; O2SAT 90–96; BMI 39.7
[2023-08-17] MEDS: HYDROmorphone 1 mg/mL INJ 1 mL IVP ×3 (00:38→11:21)
[2023-08-17] MEDS: acetaminophen 325 mg Tablet 650 MG PO ×3 (04:18→17:44)
[2023-08-17] MEDS: enoxaparin 40 mg/0.4 mL Syringe SUBCUT (04:19)
[2023-08-17] MEDS: sucralfate 1 gm/10 mL Oral Liq UDC PO ×4 (06:07→20:29)
[2023-08-17] MEDS: levothyroxine 88 mcg Tablet PO (06:07)
[2023-08-17 06:11] LABS: Basophils % 0.2 %; Eosinophils # 0.3 10^3/uL (0.0-0.8); Eosinophils % 4.3 %; Hematocrit 31.9 % (36-47); Lymphocytes % 30.4 %; Mean Corpuscular HGB Conc 32.9 g/dL (30-55); Mean Corpuscular Hemoglobin 31.3 pg (27-33); Mean Corpuscular Volume 95.2 fl (85-98); Monocytes # 0.5 10^3/uL (0.2-0.9); Monocytes % 7.6 %; Neutrophils # 3.66 10^3/uL (1.8-7.7); Neutrophils % 56.7 %; Nucleated Red Blood Cells % 0 %; Platelet Count 201 10^3/cmm (157-399); Red Blood Count 3.35 10^6/uL (3.85-5.65); Red Cell Distribution Width 12.4 % (12.1-15.1); White Blood Count 6.45 10^3/uL (3.29-11.43)
[2023-08-17 06:36] LABS: Blood Urea Nitrogen 9 mg/dL (8-23); Calcium 9.9 mg/dL (8.5-10.5); Carbon Dioxide 29 mmol/L (22-29); Chloride 98 mmol/L (98-107); Glucose 169 mg/dL (65-115); Osmolality Calculated 287 mOsm/kg (285-295); Sodium 137 mmol/L (136-145)
[2023-08-17 06:45] LABS: Glucose Point of Care 170 mg/dL (70-110)
[2023-08-17] MEDS: amlodipine 5 mg Tablet PO (09:00)
[2023-08-17] MEDS: insulin lispro 100 unit/1 mL SUBCUT ×3 (09:00→17:44)
[2023-08-17] MEDS: vancomycin 125 mg Capsule PO ×4 (09:00→20:29)
[2023-08-17] MEDS: pantoprazole 40 mg SDV IVP ×2 (09:00→20:50)
[2023-08-17] MEDS: polyethylene glycol 3350 Pkt 17 gm PO (09:00)
[2023-08-17] MEDS: metoprolol tartrate 25 mg Tablet PO ×2 (09:00→17:43)
[2023-08-17] MEDS: nitrofurantoin SR (BID) 100 mg Capsule PO ×2 (09:00→17:43)
[2023-08-17] MEDS: ondansetron 2 mg/ML SDV 2 mL 4 MG IVP ×2 (09:07→17:44)
--- NOTE | 2023-08-17 09:14 | PC.SOCIAL ---
IMM Update pg 2 of IMM updated and reviewed w/ patient. Copy provided and copy dated, initialed and placed in chart.
--- NOTE | 2023-08-17 10:04 | P.PN_ITS ---
Subjective 2 Subjective: Patient is endorsing extreme lethargy and fatigue She was leaning towards 1 side however when directed she was able to grab a bowl to eat her breakfast She had elevated for oatmeal and protein juice Clinically looks dehydrated Fatigue lethargic Not complaining of active Fabrizio pain Vitals/I&O/Wt Last Vital Signs Temp 97.8 F 08/17/23 07:40 Pulse 70 08/17/23 05:06 Resp 17 08/17/23 07:40 BP 164/77 08/17/23 07:40 Pulse Ox 90 08/17/23 04:00 O2 Del Method Room Air 08/17/23 04:00 O2 Flow Rate 2 08/14/23 20:00 08/16/23 08/17/23 08/17/23 22:59 06:59 14:59 Output Total 240 / 240 Balance -240 / 607.47 Weight last 48 hrs Weight 115.167 kg Weight 103.419 kg Physical Exam 2 Narrative: Fatigue and lethargy GCS 15 Currently on room air Pleasant cough Abdomen soft Nonfocal neuroexam Sitting in a recliner S1, S2 Data 08/17/23 05:40 08/17/23 05:40 A&P Assessment and plan (1) Nausea & vomiting: Qualifiers: Vomiting type: unspecified Qualified Code(s): R11.2 - Nausea with vomiting, unspecified (2) Gastritis: (3) Small bowel obstruction: (4) Constipation: (5) Enteritis: (6) Abdominal pain: Qualifiers: Abdominal location: lower abdomen, unspecified Qualified Code(s): R 10.30 - Lower abdominal pain, unspecified (7) C. difficile diarrhea: Plan C. difficile diarrhea Started on p.o. vancomycin on 08/16 She will need 10-day regimen No active nausea vomiting however still has signs of dehydration I will keep her in the hospital 1 more day give her IV fluid hydration and plan to discharge her by tomorrow Will update her daughter Hemodynamically stable Blood sugar under control continue metoprolol and nitrofurantoin for UTI Gastritis continue sucralfate and Protonix Attestations 2 Medical Necessity Statement*: Discharge likely tomorrow Diagnoses Nausea & vomiting R11.2 Vomiting type: unspecified Gastritis K29.70 Small bowel obstruction K56.609 Constipation K59.00 Enteritis K52.9 Abdominal pain R10.30 Abdominal location: lower abdomen, unspecified C. difficile diarrhea A04.72
[2023-08-17] MEDS: cholestyramine powder 4 gm Pkt PO ×2 (11:20→17:43)
[2023-08-17] MEDS: sodium chloride 0.9% 1,000 ML 30 ML IV (11:21)
[2023-08-17 11:30] LABS: Glucose Point of Care 331 mg/dL (70-110)
[2023-08-17 16:16] LABS: Glucose Point of Care 141 mg/dL (70-110)
[2023-08-17] MEDS: TRAMadol 50 mg Tablet PO (20:29)
[2023-08-17] MEDS: magnesium hydroxide 30 mL UDC PO (20:29)
[2023-08-17 21:02] LABS: Glucose Point of Care 194 mg/dL (70-110)
[2023-08-18] VITALS (11 sets, daily range): BP systolic 150–190; BP diastolic 69–95; PULSE 63–92; RESP 17–20; TEMP 36.3–36.6; O2SAT 92–95
[2023-08-18] MEDS: TRAMadol 50 mg Tablet PO ×4 (00:22→21:58)
[2023-08-18 04:05] LABS: Eosinophils # 0.2 10^3/uL (0.0-0.8); Eosinophils % 4.5 %; Lymphocytes # 1.9 10^3/uL (0.8-4.8); Lymphocytes % 35.6 %; Mean Corpuscular HGB Conc 32.2 g/dL (30-55); Mean Corpuscular Hemoglobin 30.2 pg (27-33); Mean Corpuscular Volume 93.8 fl (85-98); Mean Platelet Volume 9.8 fL (7.4-10.4); Monocytes # 0.5 10^3/uL (0.2-0.9); Monocytes % 8.4 %; Neutrophils # 2.72 10^3/uL (1.8-7.7); Neutrophils % 51.1 %; Nucleated Red Blood Cells % 0 %; Platelet Count 208 10^3/cmm (157-399); Red Blood Count 3.41 10^6/uL (3.85-5.65); Red Cell Distribution Width 12.2 % (12.1-15.1); White Blood Count 5.33 10^3/uL (3.29-11.43)
[2023-08-18 04:28] LABS: Anion Gap 11.7 (5-19); Blood Urea Nitrogen 9 mg/dL (8-23); Calcium 9.4 mg/dL (8.5-10.5); Carbon Dioxide 30 mmol/L (22-29); Chloride 100 mmol/L (98-107); Glucose 146 mg/dL (65-115); Osmolality Calculated 287 mOsm/kg (285-295); Potassium 3.7 mmol/L (3.5-5.1); Sodium 138 mmol/L (136-145)
[2023-08-18] MEDS: levothyroxine 88 mcg Tablet PO (05:46)
[2023-08-18] MEDS: enoxaparin 40 mg/0.4 mL Syringe SUBCUT (05:46)
[2023-08-18] MEDS: sucralfate 1 gm/10 mL Oral Liq UDC PO ×4 (05:46→21:46)
[2023-08-18 06:59] LABS: Glucose Point of Care 179 mg/dL (70-110)
[2023-08-18] MEDS: insulin lispro 100 unit/1 mL SUBCUT ×3 (08:23→17:11)
[2023-08-18] MEDS: cholestyramine powder 4 gm Pkt PO (08:23)
[2023-08-18] MEDS: nitrofurantoin SR (BID) 100 mg Capsule PO ×2 (08:23→17:12)
[2023-08-18] MEDS: amlodipine 5 mg Tablet PO (08:23)
[2023-08-18] MEDS: vancomycin 125 mg Capsule PO ×4 (08:23→21:46)
[2023-08-18] MEDS: pantoprazole 40 mg SDV IVP ×2 (08:23→21:46)
[2023-08-18] MEDS: metoprolol tartrate 25 mg Tablet PO ×2 (08:24→17:12)
[2023-08-18] MEDS: acetaminophen 325 mg Tablet 650 MG PO ×2 (08:33→15:56)
--- NOTE | 2023-08-18 10:10 | P.PN_ITS ---
Subjective 2 Subjective: Patient feeling slightly better I encouraged her to get up and walk around using a walker Plan to discharge her by tomorrow Discontinue her IV fluids Patient is stating that she has had no bowel movement in last 30 to 36 hours Vitals/I&O/Wt Last Vital Signs Temp 97.7 F 08/18/23 08:31 Pulse 86 08/18/23 08:31 Resp 19 H 08/18/23 08:31 BP 184/95 08/18/23 08:31 Pulse Ox 94 08/18/23 08:31 O2 Del Method Room Air 08/18/23 08:31 O2 Flow Rate 2 08/14/23 20:00 08/17/23 08/18/23 08/18/23 22:59 06:59 14:59 Intake Total 994.5 / 1234.5 480 / 480 Balance 994.5 / 1234.5 480 / 480 Weight last 48 hrs Weight 108.227 kg Weight 115.167 kg Physical Exam 2 Narrative: GCS 15 Pleasant cough Sitting in recliner Dosing feeling better She was appreciative for care Pleasant and cooperative Currently on room air Pleasant cooperative No signs of fluid overload Data 08/18/23 03:47 08/18/23 03:47 Micro: Microbiology 08/15/23 Unknown Clostridioides difficile Toxins A&B (PCR) - Final Stool A&P Assessment and plan (1) Gastritis: (2) Nausea & vomiting: Qualifiers: Vomiting type: unspecified Qualified Code(s): R11.2 - Nausea with vomiting, unspecified (3) Abdominal pain: Qualifiers: Abdominal location: lower abdomen, unspecified Qualified Code(s): R 10.30 - Lower abdominal pain, unspecified (4) Enteritis: (5) Constipation: (6) Small bowel obstruction: (7) C. difficile diarrhea: (8) UTI (urinary tract infection): Plan Discontinued fluids Tolerating her diet Patient is not experiencing diarrhea anymore My concern is related to C. difficile related ileus If she is not experiencing nausea vomiting after eating I have encouraged her to eat Plan to discharge her by tomorrow Hemodynamics Full code Consistent carb diet Patient has finished antibiotics for UTI Attestations 2 Medical Necessity Statement*: Continue medical management discharge tomorrow Diagnoses Gastritis K29.70 Nausea & vomiting R11.2 Vomiting type: unspecified Abdominal pain R10.30 Abdominal location: lower abdomen, unspecified Enteritis K52.9 Constipation K59.00 Small bowel obstruction K56.609 C. difficile diarrhea A04.72 UTI (urinary tract infection) N39.0
[2023-08-18 11:16] LABS: Glucose Point of Care 325 mg/dL (70-110)
[2023-08-18 16:29] LABS: Glucose Point of Care 260 mg/dL (70-110)
[2023-08-18 20:11] LABS: Glucose Point of Care 161 mg/dL (70-110)
[2023-08-18] MEDS: magnesium hydroxide 30 mL UDC PO (21:46)
[2023-08-19] VITALS: BP 172/78; PULSE 66; RESP 18; TEMP 36.3; O2SAT 91
[2023-08-19 01:41] VITALS: PULSE 69
[2023-08-19] MEDS: acetaminophen 325 mg Tablet 650 MG PO (02:33)
[2023-08-19 04:00] VITALS: BP 185/79; PULSE 68; RESP 16; TEMP 36.6; O2SAT 94
[2023-08-19] MEDS: levothyroxine 88 mcg Tablet PO (05:40)
[2023-08-19] MEDS: sucralfate 1 gm/10 mL Oral Liq UDC PO ×2 (05:40→13:19)
[2023-08-19] MEDS: enoxaparin 40 mg/0.4 mL Syringe SUBCUT (05:40)
[2023-08-19 06:48] LABS: Glucose Point of Care 144 mg/dL (70-110)
[2023-08-19 08:00] VITALS: BP 179/78; PULSE 71; RESP 16; TEMP 36.5; O2SAT 91
[2023-08-19] MEDS: insulin lispro 100 unit/1 mL SUBCUT (08:52)
[2023-08-19] MEDS: amlodipine 5 mg Tablet PO (08:53)
[2023-08-19] MEDS: TRAMadol 50 mg Tablet PO (08:53)
[2023-08-19] MEDS: nitrofurantoin SR (BID) 100 mg Capsule PO (08:53)
[2023-08-19] MEDS: metoprolol tartrate 25 mg Tablet PO (08:53)
[2023-08-19] MEDS: vancomycin 125 mg Capsule PO ×2 (08:53→13:19)
--- NOTE | 2023-08-19 09:41 | P.DS_ITS ---
Discharge Providers Date of Admission: 08/08/23 03:42 Date of Discharge: August 19, 2023 Attending Provider at Admission: Jay Wilks MD Attending Provider at Discharge: Mike Raygoza MD Primary Care Provider: SHAUN Umana Diagnoses at Discharge Discharge Diagnosis (1) Gastritis: Status: Acute (2) Nausea & vomiting: Status: Acute Qualifiers: Vomiting type: unspecified Qualified Code(s): R11.2 - Nausea with vomiting, unspecified (3) Abdominal pain: Status: Acute Qualifiers: Abdominal location: lower abdomen, unspecified Qualified Code(s): R10.30 - Lower abdominal pain, unspecified (4) Enteritis: Status: Acute (5) Constipation: Status: Acute (6) Small bowel obstruction: Status: Acute (7) C. difficile diarrhea: Status: Acute (8) UTI (urinary tract infection): Status: Acute Reason for Visit Reason for Visit: abd pain Hospital Course Hospital Course 83-year-old female who was admitted for management evaluation of abdominal pain nausea vomiting initially there was concern for bowel obstruction, she was managed conservatively, patient was given Gastrografin PO contrast with GI series, contrast traveled all the way down towards her rectum then she got a bowel movement as well, NG tube was removed by the surgeon, patient experiencing postprandial pain in epigastric region, I requested for an EGD which showed gastritis, after that patient suffered from recurrent episodes of diarrhea, in the hospital she was diagnosed with C. difficile she was put on p.o. vancomycin, please note she was put on antibiotics for her UTI at the time of admission, patient did not show any signs of sepsis, her sodium is 138, she was given IV fluid hydration during hospitalization. She remained afebrile, she is working with PT on daily basis, she has had 4 bowel movements in the last 24 hours before discharge, she will get 10-day regimen of p.o. vancomycin I have counseled patient and her daughter to use bleach whenever she uses toilet, urine culture positive for E. coli sensitive to Macrobid Physical Exam Narrative: Pleasant and cooperative GCS 15 Sitting in a recliner Eating breakfast Endorsing feeling better nonfocal neuroexam Currently doing well on room air Discharge Data Studies Completed and Pending Completed Studies During Hospitalization Category Date Time Status CT abdomen pelvis w con* [id number] Stat Cat Scan 08/08/23 00:[address] abdomen pelvis wo con [id number] Routine Cat Scan 08/15/23 12:14 Completed XR KUB portable [id number] Routine Exams 08/09/23 06:00 Completed XR KUB portable [id number] Stat Exams 08/09/23 11:51 Completed XR KUB portable [id number] Stat Exams 08/12/23 11:05 Completed XR KUB portable 22252 Stat Exams 08/14/23 09:05 Completed XR abdomen 1V* [id number] Routine Exams 08/10/23 14:30 Completed XR abdomen 1V* [id number] Stat Exams 08/11/23 06:43 Completed XR chest 1V portable [id number] Stat Exams 08/08/23 03:09 Completed Pathology: Surgical [PTH] Routine Pth 08/15/23 12:07 Completed Pending at discharge Category Date Time Status Urine Culture Routine Lab 08/18/23 02:58 Received Radiology Impressions Chest X-Ray 08/08/23 03:09 IMPRESSION: 1. Enteric tube tip projects over the stomach bubble in the left upper quadrant. 2. Left basilar atelectasis or other infiltrates. Abdomen X-Ray 08/11/23 06:43 IMPRESSION: 1. Contrast is now in the colon and rectum, see above 2. NG tube. Abdomen/Pelvis CT 08/15/23 12:14 IMPRESSION: 1. Mildly prominent fluid in the small bowel without dilation may reflect an enteritis. 2. Edema seen about the urinary bladder, please correlate for cystitis. 3. Bibasilar atelectasis versus infiltrate. 4. Coronary artery atherosclerotic calcifications. 5. 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 6. Cholecystectomy. 7. Perinephric edema bilaterally likely reflecting renal insufficiency. 8. Minimal diverticulosis without diverticulitis. 9. Right lateral abdominal wall subcutaneous air, suggestive of an injection site. 10. Emphysematous changes suspected. Laboratory Results WBC 5.33 10^3/uL (3.29-11.43) 08/18/23 03:47 RBC 3.41 10^6/uL (3.85-5.65) L 08/18/23 03:47 Hgb 10.30 g/dL (11.27-16.99) L 08/18/23 03:47 Hct 32.0 % (36-47) L 08/18/23 03:47 MCV 93.8 fl (85-98) 08/18/23 03:47 MCH 30.2 pg (27-33) 08/18/23 03:47 MCHC 32.2 g/dL (30-55) 08/18/23 03:47 RDW 12.2 % (12.1-15.1) 08/18/23 03:47 Plt Count 208 10^3/cmm (157-399) 08/18/23 03:47 MPV 9.8 fL (7.4-10.4) 08/18/23 03:47 Neut % (Auto) 51.1 % 08/18/23 03:47 Lymph % (Auto) 35.6 % 08/18/23 03:47 [place] % (Auto) 8.4 % 08/18/23 03:47 Eos % (Auto) 4.5 % 08/18/23 03:47 Baso % (Auto) 0.0 % 08/18/23 03:47 Neut # (Auto) 2.72 10^3/uL (1.8-7.7) 08/18/23 03:47 Lymph # (Auto) 1.9 10^3/uL (0.8-4.8) 08/18/23 03:47 [place] # (Auto) 0.5 10^3/uL (0.2-0.9) 08/18/23 03:47 Eos # (Auto) 0.2 10^3/uL (0.0-0.8) 08/18/23 03:47 Baso # (Auto) 0.0 10^3/uL (0.0-0.1) 08/18/23 03:47 Nucleated RBC % (auto) 0 % 08/18/23 03:47 Nucleated RBCs # 0.0 /100WBC 08/18/23 03:47 Sodium 138 mmol/L (136-145) 08/18/23 03:47 Potassium 3.7 mmol/L (3.5-5.1) 08/18/23 03:47 Chloride 100 mmol/L (98-107) 08/18/23 03:47 Carbon Dioxide 30 mmol/L (22-29) H 08/18/23 03:47 Anion Gap 11.7 (5-19) 08/18/23 03:47 BUN 9 mg/dL (8-23) 08/18/23 03:47 Creatinine 0.7 mg/dL (0.5-0.9) 08/18/23 03:47 GFR Calculation Not Reportable 08/18/23 03:47 Glucose 146 mg/dL (65-115) H 08/18/23 03:47 POC Glucose 144 mg/dL (70-110) H 08/19/23 06:37 Estimat Average Glucose 137 08/07/23 23:28 Hemoglobin A1c 6.4 % (4.0-6.0) H 08/07/23 23:28 Calculated Osmolality 287 mOsm/kg (285-295) 08/18/23 03:47 Lactic Acid 1.0 mmol/L (0.5-2.2) 08/08/23 02:03 Lactate 0.7 mmol/L (0.5-2.2) 08/12/23 12:53 Calcium 9.4 mg/dL (8.5-10.5) 08/18/23 03:47 Phosphorus 3.2 mg/dL (2.5-4.5) 08/09/23 04:54 Magnesium 2.0 mg/dL (1.7-2.3) 08/09/23 04:54 Total Bilirubin 0.3 mg/dL (0.15-1.2) 08/10/23 04:16 AST 21 U/L (0-32) 08/10/23 04:16 ALT 33 U/L (0-33) 08/10/23 04:16 Alkaline Phosphatase 124 U/L (35-105) H 08/10/23 04:16 C-Reactive Protein 8.0 mg/L (0.0-4.9) H 08/07/23 23:58 NT-Pro-B Natriuret Pep 661 pg/mL (0-450) H 08/09/23 04:54 NT-Pro-B Natriuret Pep Cancelled 08/09/23 04:54 Total Protein 6.9 g/dL (6.6-8.7) 08/10/23 04:16 Albumin 3.4 g/dL (3.5-5.2) L 08/10/23 04:16 Globulin 3.5 g/dL (1.3-4.6) 08/10/23 04:16 Lipase 34 U/L (13-60) 08/07/23 23:28 Procalcitonin 0.06 ng/mL (0-0.5) 08/07/23 23:58 TSH 3.16 uIU/mL (0.27-4.20) 08/07/23 23:28 Urine Color Yellow (Yellow) 08/08/23 00:17 Urine Appearance Clear (CLEAR) 08/08/23 00:17 Urine pH 5 (5-7) 08/08/23 00:17 Ur Specific [place] 1.020 (1.005-1.030) 08/08/23 00:17 Urine Protein 1+ (Negative) H 08/08/23 00:17 Urine Glucose (UA) Norm (Normal) 08/08/23 00:17 Urine Ketones Negative (Negative) 08/08/23 00:17 Urine Blood Neg (Negative) 08/08/23 00:17 Urine Nitrate Negative (Negative) 08/08/23 00:17 Urine Bilirubin Neg (Negative) 08/08/23 00:17 Urine Urobilinogen Norm mg/dL (Negative) 08/08/23 00:17 Ur Leukocyte Esterase Negative (Negative) 08/08/23 00:17 Urine RBC 0-4 /hpf (0-2) H 08/08/23 00:17 Urine WBC 0-4 /hpf (0-5) H 08/08/23 00:17 Ur Squamous Epith Cells 0-4 /hpf (0-5) H 08/08/23 00:17 Amorphous Sediment Not Reportable 08/08/23 00:17 Urine Bacteria Trace /hpf (NONE) 08/08/23 00:17 Hyaline Casts 15-25 /lpf H 08/08/23 00:17 C. difficile Tox (PCR) Detected (NOT DETECTED) A 08/15/23 13:20 Vitals Last Vital Signs Temp 97.7 F 08/19/23 08:00 Pulse 71 08/19/23 08:00 Resp 16 08/19/23 08:00 BP 179/78 08/19/23 08:00 Pulse Ox 91 08/19/23 08:00 O2 Del Method Room Air 08/19/23 04:00 O2 Flow Rate 2 08/14/23 20:00 Discharge Plan Discharge Patient Disposition: Home Condition: Stable Prescriptions: New nitrofurantoin monohyd/m-cryst 100 mg Capsule 100 mg PO BID Qty: 6 0RF vancomycin 125 mg Capsule 125 mg PO QID Qty: 28 0RF Continued amlodipine 5 mg tablet 5 mg PO QAM cholecalciferol (vitamin D3) 75 mcg (3,000 unit) tablet 6,000 unit PO DAILY rosuvastatin 20 mg tablet 20 mg PO BEDTIME (DME) FAST FORM COCK UP SPLINT See Rx Instructions .Route .MEDSUPPLY Qty: 1 0RF Rx Instructions: As directed hydroxyzine pamoate 25 mg capsule 25 mg PO TID PRN (Reason: Anxiety) Qty: 90 1RF carbamazepine 200 mg tablet 200 mg PO BID Qty: 60 11RF olanzapine 10 mg tablet 10 mg PO BEDTIME levothyroxine [Synthroid] 88 mcg tablet 88 mcg PO QAM olanzapine 5 mg tablet 5 mg PO QAM citalopram 20 mg tablet 20 mg PO QAM omega [id number]-fish oil [Fish Oil] 1,200 (144-216) mg Capsule 1 cap PO BID multivitamin Tablet 1 tab PO DAILY gabapentin 100 mg Capsule 100 mg PO BID PRN (Reason: unknown) loratadine 10 mg tablet 10 mg PO DAILY metoprolol tartrate 25 mg tablet 25 mg PO BID Januvia 100 mg tablet 100 mg PO QAM Vitamin B-12 1,000 mcg/mL Drops 1 ml PO DAILY [employer] 3 billion cell Capsule 1 cap PO DAILY Held Lasix 20 mg Tablet 20 mg PO QAM Hold Instructions: Resume on 09/02/23. potassium gluconate 595 mg (99 mg) Tablet 595 mg PO .UP TO QID Hold Instructions: Resume on 09/02/23. Discontinued glimepiride 2 mg tablet 2 mg PO BEDTIME iron 325 mg (65 mg iron) Tablet 325 mg PO QAM Discharge Orders: Discharge Order (Routine); Ordered 08/19/23 Ordered By: Mike Raygoza Referrals: Claude Rico [facility] [Primary Care Provider] - Patient Instructions: GI Discharge Instructions, Opioid Safety Discharge Attestations Time Spent in Discharge Care*: greater than 30 min Quality Metrics Clinical Quality Measures [ No reported AMI, CVA or VTE this stay] Coding Level of Care Code Acute Code for Chg Fwd Diagnoses Gastritis K29.70 Nausea & vomiting R11.2 Vomiting type: unspecified Abdominal pain R10.30 Abdominal location: lower abdomen, unspecified Enteritis K52.9 Constipation K59.00 Small bowel obstruction K56.609 C. difficile diarrhea A04.72 UTI (urinary tract infection) N39.0
--- NOTE | 2023-08-19 11:10 | PC.NURSE ---
Spoke with patient's daughter and she stated that she does not have any of her moms insurance information so he mom with just have to wait until tomorrow when she can pick it up. Dr. Raygoza
[2023-08-19 11:40] LABS: Glucose Point of Care 272 mg/dL (70-110)
[2023-08-19 12:00] VITALS: BP 179/76; PULSE 63; RESP 15; TEMP 36.8; O2SAT 93
[2023-08-19 14:04] VITALS: BP 179/76; PULSE 63; RESP 15; TEMP 36.8; O2SAT 93
== END 2023-08-19 14:05 | disposition home health service (06) | DRG 389 ==
LOC: ER 08-08 03:35 → MEDSURG 08-08 03:42
PROVIDERS: Surgery; Admitting Provider Family Medicine; Emergency Provider Emergency Medicine; PCP Nurse Practitioner; Visit Provider Internal Medicine
PROC: 0DJ08ZZ Inspection of Upper Intestinal Tract, Via Natural or Artificial Opening Endoscopic (ICD-10-PCS; CPT 43235; principal; 2023-08-15 12:00)
DX: K56.600 Partial intestinal obstruction, unspecified as to cause (principal); A04.72 Enterocolitis due to Clostridium difficile, not specified as recurrent; E87.0 Hyperosmolality and hypernatremia; N39.0 Urinary tract infection, site not specified; E03.9 Hypothyroidism, unspecified; E11.9 Type 2 diabetes mellitus without complications; I10 Essential (primary) hypertension; E86.0 Dehydration; K29.00 Acute gastritis without bleeding; K59.00 Constipation, unspecified; B96.20 Unspecified Escherichia coli [E. coli] as the cause of diseases classified elsewhere; Z79.84 Long term (current) use of oral hypoglycemic drugs
CPT/HCPCS: 36415; 36416; 43239; 71045; 74018; 74176; 74177; 76937; 80048; 80053; 81001; 82962; 83036; 83605; 83690; 83735; 83880; 84100; 84145; 84443; 85025; 86140; 87086; 87324; 87493; 88305; 93005; 96372; 96374; 97116; 97161; 99285; C9113; J0330; J1170; J1200; J1650; J1815; J2270; J2405; J2543; J2704; J2765; J3010; J3490; J7030; J7042; Q3014; Q9967

== ENCOUNTER 2024-03-18 17:26 | Emergency (ER) | payer MEDICARE, SELFPAY ==
[2024-03-18 17:36] VITALS: BP 161/50; PULSE 72; RESP 16; TEMP 36.7; O2SAT 93
[2024-03-18 18:09] VITALS: BP 159/80; PULSE 72; O2SAT 97
[2024-03-18 18:30] VITALS: BP 186/94; PULSE 75; O2SAT 95
--- NOTE | 2024-03-18 18:37 | W.ED.RECABL ---
HPI - Recheck/Abnormal Lab/Rx General: Chief Complaint: Recheck/Abnormal Lab/Rx Stated Complaint: High Blood Sugar sent by PCP Time Seen by Provider: 03/18/24 18:12 History of Present Illness: This patient is an 84-year-old white female who presents to the emergency department for evaluation of high blood sugar. Patient was seen by her primary care provider in the office today. She was diagnosed with a sinus and kidney infection. She was placed on antibiotic but she does not recall the name of the antibiotic that was prescribed. She has not been able to get to the pharmacy yet. Blood sugar in the office was 522. Was recommended she be evaluated in the emergency department. She was out of her Januvia but just started it again this morning. Blood sugar in the emergency departments evening 370. Related Data Home Medications Medication Instructions Recorded Confirmed citalopram 20 mg tablet 20 mg PO QAM 06/09/21 08/08/23 levothyroxine 88 mcg tablet 88 mcg PO QAM 06/09/21 08/08/23 (Synthroid) multivitamin 1 tab PO DAILY 06/09/21 08/08/23 olanzapine 10 mg tablet 10 mg PO BEDTIME 06/09/21 08/08/23 olanzapine 5 mg tablet 5 mg PO QAM 06/09/21 08/08/23 omega 4-idn-jrx-fish oil 1,200 mg 1 cap PO BID 06/09/21 08/08/23 (144 mg-216 mg) capsule (Fish Oil) amlodipine 5 mg tablet 5 mg PO QAM 08/09/21 08/08/23 cholecalciferol (vitamin D3) 75 6,000 unit PO DAILY 10/18/22 08/08/23 mcg (3,000 unit) tablet rosuvastatin 20 mg tablet 20 mg PO BEDTIME 10/18/22 08/08/23 Lactobacillus rhamnosus-Bifidobac. 1 cap PO DAILY 08/08/23 08/08/23 animalis 3 billion cell capsule (Fiberstar) cyanocobalamin (vitamin B-12) 1 ml PO DAILY 08/08/23 08/08/23 1,000 mcg/mL oral drops (Vitamin B-12) furosemide 20 mg tablet (Lasix) 20 mg PO QAM 08/08/23 08/08/23 gabapentin 100 mg capsule 100 mg PO BID PRN unknown 08/08/23 08/08/23 loratadine 10 mg tablet 10 mg PO DAILY 08/08/23 08/08/23 metoprolol tartrate 25 mg tablet 25 mg PO BID 08/08/23 08/08/23 potassium gluconate 595 mg (99 mg) 595 mg PO .UP TO QID 08/08/23 08/08/23 tablet sitagliptin phosphate 100 mg 100 mg PO QAM 08/08/23 08/08/23 tablet (Januvia) Previous Rx's Medication Instructions Recorded hydroxyzine pamoate 25 mg capsule 25 mg PO TID PRN Anxiety #90 caps 05/24/22 carbamazepine 200 mg tablet 200 mg PO BID #60 tabs 09/18/22 FAST FORM COCK UP SPLINT #1 ea 10/18/22 nitrofurantoin 100 mg PO BID #6 caps 08/19/23 monohydrate/macrocrystals 100 mg capsule vancomycin 125 mg capsule 125 mg PO QID #28 caps 08/19/23 Allergies Allergy/AdvReac Type Severity Reaction Status Date / Time No Known Allergies Allergy Verified 03/18/24 17:39 Review of Systems General: Reports: 10 or more systems reviewed and unremarkable except in HPI and below PFSH ED PFSH: Medical History (Updated 03/18/24 @ 18:30 by Sergio Cabrera MD) C. difficile diarrhea Enteritis UTI (urinary tract infection) Gastritis Constipation Bilateral lower extremity edema Nausea & vomiting Abdominal pain Small bowel obstruction History of hypothyroidism History of hypertension History of type 2 diabetes mellitus Surgical History (Updated 08/08/23 @ 03:24 by Jay Wilks MD) History of hysterectomy History of cholecystectomy Family History (Updated 08/08/23 @ 03:25 by Jay Wilks MD) Mother CAD (coronary artery disease) Social History (Updated 08/08/23 @ 03:24 by Jay Wilks MD) Smoking and tobacco/nicotine status: never used tobacco/nicotine Alcohol intake: never Substance/Drug Use: never Physical Exam Const: COMMON NORMALS: no acute distress, patient oriented x3 and no limitations GENERAL APPEARANCE: cooperative and comfortable HENMT: COMMON NORMALS: normocephalic, atraumatic, Normal nasal mucous membranes and turbinates present, moist oral mucous membranes and oropharynx normal HEAD & SCALP: normal to inspection, normocephalic and atraumatic FACE & SINUS: normal facial exam NOSE: Normal nasal mucous membranes and turbinates present Eye: COMMON NORMALS: Equal, round and reactive pupils present, EOMs intact bilaterally and conjunctivae normal GENERAL EYE: appearance normal, both eyes and all related structures CONJUNCTIVA: Yes conjunctivae normal PUPIL: Yes Equal, round and reactive pupils present Neck/C-Spine: COMMON NORMALS: supple and no JVD Chest: COMMONS NORMALS: normal inspection of the chest Resp: COMMON NORMALS: normal respiratory effort and clear to auscultation bilaterally AUSCULTATION: clear to auscultation bilaterally Cardio: COMMON NORMALS: no JVD, regular rate, regular rhythm, No gallops present (Cardio), No murmurs present (Cardio) and No rub (Cardio) RATE: regular rate RHYTHM: regular rhythm GI: COMMON NORMALS: Normal to inspection, nondistended, normoactive bowel sounds present, Soft to palpation and non-tender AUSCULTATION: Yes normoactive bowel sounds PALPATION: Yes Soft to palpation : COMMON NORMALS: Yes no CVA tenderness BLADDER/KIDNEY EXAM: Yes no CVA tenderness Back/Pelvis: COMMON NORMALS: no CVA tenderness and thoracic and lumbar spine normal to inspection Extremity: COMMON NORMALS: normal to inspection Neuro: COMMON NORMALS: patient oriented x3 and CN's II-XII intact bilaterally Psych: COMMON NORMALS: mental status grossly normal, Normal thought process present and cooperative THOUGHT PROCESS: Normal thought process present Skin: COMMON NORMALS: no rashes or lesions noted, turgor normal and no jaundice GENERAL SKIN EXAM: no rashes or lesions noted and turgor normal Course Vital Signs: Vital signs: Vital Signs Temperature 98.1 F 03/18/24 17:36 Pulse Rate 75 03/18/24 18:30 Respiratory Rate 16 03/18/24 17:36 Blood Pressure 186/94 03/18/24 18:30 Pulse Oximetry 95 03/18/24 18:30 Oxygen Delivery Me thod Room Air 03/18/24 18:30 MDM - Recheck/Abnormal Lab/Rx Medical Decision Making No need for any insulin the emergency department. Discussed with the patient and her daughter that since she currently has a sinus infection and a urinary tract infection her cortisol levels are high which are causing the elevated blood sugar plus she has been off of her Januvia recently. Blood sugar appears to be coming down nicely after taking her Januvia this morning. Patient was unable to get to the pharmacy to fill her prescription for the antibiotic so I did give her 1 dose of Augmentin in the emergency department. She was discharged in stable condition. Follow-up with primary care physician as needed. No radiology studies performed this visit Discharge Plan Discharge Patient Disposition: Home Clinical Impression: Hyperglycemia Condition: Stable Prescriptions: No Action amlodipine 5 mg tablet 5 mg PO QAM cholecalciferol (vitamin D3) 75 mcg (3,000 unit) tablet 6,000 unit PO DAILY rosuvastatin 20 mg tablet 20 mg PO BEDTIME (DME) FAST FORM COCK UP SPLINT See Rx Instructions .Route .MEDSUPPLY Qty: 1 0RF Rx Instructions: As directed hydroxyzine pamoate 25 mg capsule 25 mg PO TID PRN (Reason: Anxiety) Qty: 90 1RF carbamazepine 200 mg tablet 200 mg PO BID Qty: 60 11RF olanzapine 10 mg tablet 10 mg PO BEDTIME levothyroxine [Synthroid] 88 mcg tablet 88 mcg PO QAM olanzapine 5 mg tablet 5 mg PO QAM citalopram 20 mg tablet 20 mg PO QAM omega 5-nrs-tkd-fish oil [Fish Oil] 1,200 (144-216) mg Capsule 1 cap PO BID multivitamin Tablet 1 tab PO DAILY Lasix 20 mg Tablet 20 mg PO QAM Hold Instructions: Resume on 09/02/23. gabapentin 100 mg Capsule 100 mg PO BID PRN (Reason: unknown) loratadine 10 mg tablet 10 mg PO DAILY metoprolol tartrate 25 mg tablet 25 mg PO BID Januvia 100 mg tablet 100 mg PO QAM potassium gluconate 595 mg (99 mg) Tablet 595 mg PO .UP TO QID Hold Instructions: Resume on 09/02/23. Vitamin B-12 1,000 mcg/mL Drops 1 ml PO DAILY Fiberstar 3 billion cell Capsule 1 cap PO DAILY vancomycin 125 mg Capsule 125 mg PO QID Qty: 28 0RF nitrofurantoin monohyd/m-cryst 100 mg Capsule 100 mg PO BID Qty: 6 0RF Discharge Orders: Discharge ED (Routine); Ordered 03/18/24 Ordered By: Sergio Cabrera Referrals: Claude Rico FNP [Primary Care Provider] - Coding Level of Care Code ED Lawyer Criminal for [facility]
[2024-03-18] MEDS: amoxicillin-clav 875-125 mg Tablet 1 TAB PO (18:39)
[2024-03-18 18:43] LABS: Glucose Point of Care 398 mg/dL (70-110)
[2024-03-18 18:45] LABS: Glucose Point of Care 376 mg/dL (70-110)
[2024-03-18 18:51] VITALS: BP 164/118; PULSE 76; O2SAT 95
== END 2024-03-18 18:53 | disposition home or self-care (01) ==
PROVIDERS: Emergency Provider Emergency Medicine; PCP Nurse Practitioner
DX: E11.65 Type 2 diabetes mellitus with hyperglycemia (principal); I10 Essential (primary) hypertension
CPT/HCPCS: 36416; 82962; 99283

== ENCOUNTER 2024-03-25 12:59 | Inpatient (IN) | payer MEDICARE, SELFPAY ==
[2024-03-25] VITALS (28 sets, daily range): BP systolic 82–183; BP diastolic 40–120; PULSE 73–86; RESP 12–31; TEMP 36.8–37; O2SAT 91–100; BMI 36.0; BMI 36.4
--- NOTE | 2024-03-25 14:13 | ED_ITS ---
HPI - Female Genitourinary 2 General: Chief complaint: Urogenital-Female Stated complaint: Blood sugar over 400, can't urinate Time Seen by Provider: 03/25/24 14:11 History of Present Illness: 84-year-old female presents to the emerg ency room with complaints of significantly decreased urine output and elevated blood sugar. Blood sugar this morning is in the 500s she has not had any urine output since last night. Daughter is her main caregiver and assists with history. Patient herself is awake and alert and actually is able to answer all of her questions fairly well. Blood sugar in triage is 332. Patient has been ill recently and was recently seen by primary care provider and started on amoxicillin for bladder infection possible sinus infection. She is prescribed oxygen but prior to this recent illness had only been using it 2 L at night caregiver has had to increase to 3 L pretty much continuously the last couple of days. In the exam room noted a oxygen saturation of 86% on room air initially. We put her on 3 L by nasal cannula and did improve significantly. Patient also states she is intermittently had chest pain while at rest. It will happen a couple of times a day last for about 30 minutes at a time and then resolved spontaneously she has not taken anything for it. She has not had any orthopnea she has not had any increase swelling in her legs no reported fever but does have a reports of generalized malaise not feeling well some mild abdominal discomfort and a slightly productive cough of clear to whitish sputum. Denies any medic easy melena hematemesis coffee-ground emesis no hemoptysis. Patient did have 1 episode of vomiting at home. She normally is ambulatory with assistance she will either use a walker or wheelchair. Primary caregiver reports decreasing energy levels and loss of function to assist with ambulation and transfers. Associated symptoms: Reports abdominal pain and nausea Related Data Home Medications Medication Instructions Recorded Confirmed citalopram 20 mg tablet 20 mg PO QAM 06/09/21 03/26/24 levothyroxine 88 mcg tablet 88 mcg PO QAM 06/09/21 03/26/24 (Synthroid) multivitamin 1 tab PO DAILY 06/09/21 03/26/24 olanzapine 10 mg tablet 10 mg PO BEDTIME 06/09/21 03/26/24 olanzapine 5 mg tablet 5 mg PO QAM 06/09/21 03/26/24 amlodipine 5 mg tablet 5 mg PO QAM 08/09/21 03/26/24 cholecalciferol (vitamin D3) 75 6,000 unit PO DAILY 10/18/22 03/26/24 mcg (3,000 unit) tablet cyanocobalamin (vitamin B-12) 1 ml PO DAILY 08/08/23 03/26/24 1,000 mcg/mL oral drops (Vitamin B-12) furosemide 20 mg tablet (Lasix) 20 mg PO QAM 08/08/23 03/26/24 gabapentin 100 mg capsule 100 mg PO TID PRN unknown 08/08/23 03/26/24 metoprolol tartrate 25 mg tablet 25 mg PO BID 08/08/23 03/26/24 amoxicillin 875 mg tablet 875 mg PO BID 03/26/24 03/26/24 buspirone 5 mg tablet 5 mg PO BID 03/26/24 03/26/24 cetirizine 10 mg tablet 10 mg PO DAILY 03/26/24 03/26/24 inulin 2 gram chewable tablet 2 g PO BEDTIME 03/26/24 03/26/24 (Fiber Gummies) magnesium hydroxide 400 mg/5 mL 15 ml PO BEDTIME 03/26/24 03/26/24 oral suspension (Milk of Magnesia) melatonin 10 mg tablet 10 mg PO BEDTIME 03/26/24 03/26/24 omeprazole 20 mg capsule,delayed 20 mg PO DAILY 03/26/24 03/26/24 release ondansetron 4 mg disintegrating 4 mg PO Q8H PRN Nausea 03/26/24 03/26/24 tablet potassium chloride 20 mEq 20 meq PO DAILY 03/26/24 03/26/24 tablet,extended release(part/cryst) rosuvastatin 40 mg tablet 40 mg PO BEDTIME 03/26/24 03/26/24 sitagliptin phosphate 50 mg tablet 50 mg PO QAM 03/26/24 03/26/24 (Januvia) spironolactone 25 mg tablet 25 mg PO DAILY 03/26/24 03/26/24 Previous Rx's Medication Instructions Recorded carbamazepine 200 mg tablet 200 mg PO BID #60 tabs 09/18/22 FAST FORM COCK UP SPLINT #1 ea 10/18/22 Allergies Allergy/AdvReac Type Severity Reaction Status Date / Time No Known Allergies Allergy Verified 09/03/24 13:58 Review of Systems 2 Const: Denies: fever(s) or chills Card: Reports: chest pain, palpitations, edema (At baseline), swelling of feet/ankles and dyspnea on exertion Resp: Denies: dyspnea GI: Reports: abdominal pain, nausea and vomiting (Once) : Denies: dysuria, urinary frequency or urinary urgency Musc: Denies: neck pain or back pain Skin/Breast: Denies: rash PFSH ED 2 PFSH: Medical History Congestive heart failure Parkinsons C. difficile diarrhea Enteritis UTI (urinary tract infection) Gastritis Constipation Bilateral lower extremity edema Nausea & vomiting Abdominal pain Small bowel obstruction History of hypothyroidism History of hypertension History of type 2 diabetes mellitus Surgical History History of hysterectomy History of cholecystectomy Family History Mother CAD (coronary artery disease) Social History Smoking and tobacco/nicotine status: never used tobacco/nicotine Alcohol intake: never Substance/Drug Use: never Physical Exam 2 Const: COMMON NORMALS: no acute distress GENERAL APPEARANCE: cooperative and comfortable ORIENTATION/CONSCIOUSNESS: Yes awake, Yes oriented to person, Yes oriented to place and Yes oriented to time HENMT: COMMON NORMALS: normocephalic, atraumatic and hearing grossly normal bilaterally HEAD & SCALP: normocephalic and atraumatic Resp: COMMON NORMALS: normal respiratory effort, No retractions, No use of accessory muscles and clear to auscultation bilaterally AUSCULTATION: clear to auscultation bilaterally Cardio: COMMON NORMALS: regular rate, regular rhythm and No murmurs present (Cardio) RATE: regular rate RHYTHM: regular rhythm GI: COMMON NORMALS: Soft to palpation and No hepatosplenomegaly present A USCULTATION: Yes normoactive bowel sounds PALPATION: Yes Soft to palpation, No Tenderness to palpation present (GI), No Guarding due to palpation present (GI) and Yes No hepatosplenomegaly present Extremity: COMMON NORMALS: normal to inspection, capillary refill normal, no clubbing, cyanosis or edema, no calf tenderness and no pedal edema Neuro: SENSORIUM/ORIENTATION: Yes oriented to person, Yes oriented to place and Yes oriented to time Skin: COMMON NORMALS: no rashes or lesions noted GENERAL SKIN EXAM: no rashes or lesions noted Course 2 Vital Signs: Vital signs: Vital Signs Temperature 98.3 F 03/26/24 08:00 Pulse Rate 73 03/26/24 13:30 Respiratory Rate 16 03/26/24 13:30 Blood Pressure 148/60 03/26/24 14:00 Pulse Oximetry 100 03/26/24 13:30 Oxygen Delivery Me thod Nasal Cannula 03/26/24 06:00 Oxygen Flow Rate 3 03/26/24 06:00 MDM - Female Medical Decision Making Labs and imaging reviewed no leukocytosis hemoglobin is stable she does have a mild acute kidney injury. Troponins trending negative. She has a mild hyponatremia as well. She is hyperglycemic she was given IV fluids and insulin. Given her history of heart disease with congestive heart failure she will need to be gently rehydrated discussed with hospitalist orders written Lab Data 03/26/24 04:58 03/26/24 04:58 Radiology Impressions Chest X-Ray 03/25/24 14:13 IMPRESSION: The heart is prominent in size with findings to suggest pulmonary venous hypertension. Abdomen/Pelvis CT 03/25/24 15:22 IMPRESSION: 1. No acute findings. 2. Stable 3.4 cm right adrenal adenoma 3. Multilevel arthritic changes and old compression fracture involving the lumbar spine COMMENTS: Consistent with the [place] [employer]'s Incidental Findings Committee white paper (J Am Zeke Radiol 2017): For any incidental adrenal lesion greater than or equal to 1 cm but less than or equal to 4 cm classified in this report as benign, likely benign, or containing fat (including classification as an adenoma or myelolipoma), no follow-up imaging is recommended per consensus recommendations based on imaging criteria. Further lab evaluation could be pursued if warranted based on clinical findings. KUB X-Ray 03/26/24 08:31 Impression: Nonspecific appearance of the KUB. Laboratory Results WBC 7.33 10^3/uL (3.29-11.43) 03/26/24 04:58 RBC 3.62 10^6/uL (3.85-5.65) L 03/26/24 04:58 Hgb 11.30 g/dL (11.27-16.99) 03/26/24 04:58 Hct 34.5 % (36-47) L 03/26/24 04:58 MCV 95.3 fl (85-98) 03/26/24 04:58 MCH 31.2 pg (27-33) 03/26/24 04:58 MCHC 32.8 g/dL (30-55) 03/26/24 04:58 RDW 13.2 % (12.1-15.1) 03/26/24 04:58 Plt Count 193 10^3/cmm (157-399) 03/26/24 04:58 MPV 9.8 fL (7.4-10.4) 03/26/24 04:58 Neut % (Auto) 58.0 % 03/26/24 04:58 Lymph % (Auto) 29.9 % 03/26/24 04:58 [place] % (Auto) 8.2 % 03/26/24 04:58 Eos % (Auto) 3.5 % 03/26/24 04:58 Baso % (Auto) 0.1 % 03/26/24 04:58 Neut # (Auto) 4.25 10^3/uL (1.8-7.7) 03/26/24 04:58 Lymph # (Auto) 2.2 10^3/uL (0.8-4.8) 03/26/24 04:58 [place] # (Auto) 0.6 10^3/uL (0.2-0.9) 03/26/24 04:58 Eos # (Auto) 0.3 10^3/uL (0.0-0.8) 03/26/24 04:58 Baso # (Auto) 0.0 10^3/uL (0.0-0.1) 03/26/24 04:58 Nucleated RBC % (auto) 0 % 03/26/24 04:58 Nucleated RBCs # 0.0 /100WBC 03/26/24 04:58 Sodium 137 mmol/L (136-145) 03/26/24 04:58 Potassium 4.8 mmol/L (3.5-5.1) 03/26/24 04:58 Chloride 102 mmol/L (98-107) 03/26/24 04:58 Carbon Dioxide 26 mmol/L (22-29) 03/26/24 04:58 Anion Gap 13.8 (5-19) 03/26/24 04:58 BUN 20 mg/dL (8-23) 03/26/24 04:58 Creatinine 1.2 mg/dL (0.5-0.9) H 03/26/24 04:58 GFR Calculation Not Reportable 03/26/24 04:58 Glucose 241 mg/dL (65-115) H 03/26/24 04:58 POC Glucose 291 mg/dL (70-110) H 03/26/24 07:28 Estimat Average Glucose 246 03/26/24 04:58 Hemoglobin A1c 10.2 % (4.0-6.0) H 03/26/24 04:58 Calculated Osmolality 295 mOsm/kg (285-295) 03/26/24 04:58 Lactic Acid 1.6 mmol/L (0.5-2.2) 03/25/24 14:18 Calcium 8.7 mg/dL (8.5-10.5) 03/26/24 04:58 Magnesium 1.7 mg/dL (1.7-2.3) 03/26/24 04:58 Total Bilirubin 0.2 mg/dL (0.15-1.2) 03/25/24 14:18 AST 15 U/L (0-32) 03/25/24 14:18 ALT 12 U/L (0-33) 03/25/24 14:18 Alkaline Phosphatase 143 U/L (35-105) H 03/25/24 14:18 Creatine Kinase 66 U/L (26-192) 03/25/24 14:18 Troponin T 5th Gen ng/L 14 ng/L (0-10) H 03/25/24 23:28 Troponin T Baseline 12 ng/L (0-10) H 03/25/24 14:18 Troponin T 120 Minute 10.74 ng/L (0-10) H 03/25/24 17:30 Delta Troponin T -1.26 ABS# (0-10) L 03/25/24 17:30 Troponin T Hi Sens 6Hr 13.43 ng/L (0-10) H 03/25/24 20:57 Troponin T Hi Sens 6Hr Delta 1.43 ng/L (0-12) 03/25/24 20:57 NT-Pro-B Natriuret Pep 935 pg/mL (0-450) H 03/25/24 14:18 Total Protein 7.9 g/dL (6.6-8.7) 03/25/24 14:18 Albumin 3.9 g/dL (3.5-5.2) 03/25/24 14:18 Globulin 4.0 g/dL (1.3-4.6) 03/25/24 14:18 Lipase 31 U/L (13-60) 03/25/24 14:18 Urine Color Yellow (Yellow) 03/25/24 14:51 Urine Appearance Clear (CLEAR) 03/25/24 14:51 Urine pH 5.0 (5-7) 03/25/24 14:51 Ur Specific [place] 1.021 (1.005-1.030) 03/25/24 14:51 Urine Protein 1+ (Negative) A 03/25/24 14:51 Urine Glucose (UA) 3+ (Normal) H 03/25/24 14:51 Urine Ketones Negative (Negative) 03/25/24 14:51 Urine Blood Negative (Negative) 03/25/24 14:51 Urine Nitrate Negative (Negative) 03/25/24 14:51 Urine Bilirubin Negative (Negative) 03/25/24 14:51 Urine Urobilinogen 1.0 mg/dL (Negative) 03/25/24 14:51 Ur Leukocyte Esterase Negative (Negative) 03/25/24 14:51 Urine RBC None /hpf (0-2) 03/25/24 14:51 Urine WBC Rare /hpf (0-5) 03/25/24 14:51 Ur Squamous Epith Cells None /hpf (0-5) 03/25/24 14:51 Amorphous Sediment Not Reportable 03/25/24 14:51 Urine Bacteria Trace /hpf (NONE) 03/25/24 14:51 Urine Mucus None /hpf 03/25/24 14:51 Urine Yeast 1+ /hpf H 03/25/24 14:51 Serum Ketones Negative (Negative) 03/25/24 17:30 Coronavirus 229E (PCR) Not detected (NOT DETECT) 03/25/24 19:23 SARS-CoV-2 (PCR) Not detected (NOT DETECT) 03/25/24 19:23 All radiology interpretation(s) finalized by discharge Discharge Plan Discharge Patient Disposition: Admitted As Inpatient Admit Provider: Mike Raygoza Clinical Impression: ALYCIA (acute kidney injury), History of type 2 diabetes mellitus, History of hypothyroidism, Congestive heart failure, Hyponatremia, Acute hyperglycemia Condition: Stable Coding Level of Care Code ED Head Machinist for [facility]
--- NOTE | 2024-03-25 14:13 | XR_ITS ---
WS: [id number] Examination: XR chest 1V portable [id number] Reason for Exam: dyspnea/cough Date: 03/25/2024 Comparison: August 08, 2023 Findings: The heart is prominent in size. The mediastinum is not widened. The markings appear increased suggesting pulmonary venous hypertension. I see no overt failure. No la rge effusion is seen. XR/XR chest 1V portable [id number] IMPRESSION: The heart is prominent in size with findings to suggest pulmonary venous hypert ension.
[2024-03-25 14:25] LABS: Basophils % 0.1 %; Eosinophils # 0.2 10^3/uL (0.0-0.8); Eosinophils % 2.3 %; Hematocrit 36.7 % (36-47); Lymphocytes # 1.9 10^3/uL (0.8-4.8); Lymphocytes % 19.7 %; Mean Corpuscular HGB Conc 32.7 g/dL (30-55); Mean Corpuscular Hemoglobin 31.3 pg (27-33); Mean Corpuscular Volume 95.6 fl (85-98); Mean Platelet Volume 10.1 fL (7.4-10.4); Monocytes # 0.7 10^3/uL (0.2-0.9); Monocytes % 7.7 %; Neutrophils # 6.56 10^3/uL (1.8-7.7); Neutrophils % 69.9 %; Nucleated Red Blood Cells % 0 %; Platelet Count 227 10^3/cmm (157-399); Red Blood Count 3.84 10^6/uL (3.85-5.65); Red Cell Distribution Width 13.2 % (12.1-15.1); White Blood Count 9.39 10^3/uL (3.29-11.43)
[2024-03-25 14:54] LABS: Alanine Aminotransferase 12 U/L (0-33); Albumin Level 3.9 g/dL (3.5-5.2); Alkaline Phosphatase 143 U/L (35-105); Blood Urea Nitrogen 30 mg/dL (8-23); Calcium 9.8 mg/dL (8.5-10.5); Carbon Dioxide 26 mmol/L (22-29); Chloride 89 mmol/L (98-107); Creatinine Clr Calc Pharmacy 31.1483; Glucose 358 mg/dL (65-115); NT Pro B Type Natriuretic Pept 935 pg/mL (0-450); Osmolality Calculated 289 mOsm/kg (285-295); Sodium 129 mmol/L (136-145); Total Bilirubin 0.2 mg/dL (0.15-1.2); Total Protein 7.9 g/dL (6.6-8.7)
[2024-03-25 14:54] LABS: Glucose Point of Care 332 mg/dL (70-110)
[2024-03-25 14:56] LABS: Lactic Sepsis W/Reflex 1.6 mmol/L (0.5-2.2)
[2024-03-25 14:58] LABS: Aspartate Amino Transferase 15 U/L (0-32)
[2024-03-25 15:00] LABS: Charge for UA Resulting for Rev
--- NOTE | 2024-03-25 15:02 | ECG_ITS ---
[facility] Test Date: 2024-03-25 Pat Name: Daphney Thomas Department: Room: Gender: Female [employer]: : 1940 Requested By: Pasquale Reynoso Order Number: [id number] Deirdre MD: Ramez Cooney M.D. Measurements Intervals [place] Rate: 77 P: 5 ME: 134 QRS: 32 QRSD: 90 T: 41 QT: 378 QTc: 428 Interpretive Statements SINUS RHYTHM WITH OCCASIONAL VENTRICULAR PREMATURE COMPLEXES. BASELINE ARTIFACT POSSIBLE ANTERIOR MYOCARDIAL INFARCTION , OF INDETERMINATE AGE [30 ms Q WAVE IN V3/V4, OR R < 0.2 mV IN V4] Compared to ECG 08/08/2023 00:35:40 Ventricular premature complex(es) now present Myocardial infarct finding now present Electronically Signed On 03-25-2024 16:40:37 CDT by Ramez Cooney M.D. [email or web address] Therapeuticso[facility] healthNeoc[facility] Softwaregal[facility] hospital.[employer]/store/OM/[id number]
[2024-03-25 15:05] LABS: Bilirubin Urine Negative (Negative); Blood Urine Negative (Negative); Glucose Urine UA 3+ (Normal); Ketones Urine Negative (Negative); Leukocyte Esterase Urine Negative (Negative); Nitrate Urine Negative (Negative); Protein Urine 1+ (Negative); Specific Gravity, Urine 1.021 (1.005-1.030); Urine Appearance Clear (CLEAR); Urine Color Yellow (Yellow)
[2024-03-25 15:18] LABS: Troponin(5th) Baseline 12 ng/L (0-10)
--- NOTE | 2024-03-25 15:22 | CTR_ITS ---
PROCEDURE INFORMATION: Exam: CT Abdomen And Pelvis Without Contrast Exam date and time: 03/25/2024 4:02 PM Age: 84 years old Clinical indication: Abdominal pain; Generalized; Patient HX: Not being able to urinate, lower back pain TECHNIQUE: Imaging protocol: Computed tomography of the abdomen and pelvis without contrast. Radiation optimization: All CT scans at this facility use at least one of these dose optimization techniques: automated exposure control; mA and/or kV adjustment per patient size (includes targeted exams where dose is matched to clinical indication); or iterative reconstruction. COMPARISON: CT abdomen pelvis wo con [id number] 08/15/2023 10:25 PM RADIATION DOSE METRICS: Total DLP (mGy-cm): 981.47 FINDINGS: Lungs: Both lung bases demonstrate chronic interstitial coarsening. Liver: Normal. No mass. Gallbladder and biliary ducts: The gallbladder has been resected. Pancreas: Normal. No ductal dilation. Spleen: Normal. No splenomegaly. Adrenal glands: There is a 3.4 cm rounded right adrenal adenoma. Kidneys and ureters: Normal. No hydronephrosis. Stomach and bowel: Unremarkable. No obstruction. No mucosal thickening. Appendix: No evidence of appendicitis. Intraperitoneal space: Unremarkable. No free air. No significant fluid collection. Vasculature: Unremarkable. No abdominal aortic aneurysm. Lymph nodes: Unremarkable. No enlarged lymph nodes. Urinary bladder: Unremarkable as visualized. Reproductive: Unremarkable as visualized. Bones/joints: The lumbar spine demonstrates multilevel vertebral body spurring and degenerative disc disease. No acute spinal fracture noted. An old compression fracture involves L1 and has undergone kyphoplasty. Soft tissues: Unremarkable. CT/CT abdomen pelvis wo con [id number] IMPRESSION: 1. No acute findings. 2. Stable 3.4 cm right adrenal adenoma 3. Multilevel arthritic changes and old compression fracture involving the lumbar spine COMMENTS: Consistent with the [place] [employer]'s Incidental Findings Committee white paper (J Am Zeke Radiol 2017): For any incidental adrenal lesion greater than or equal to 1 cm but less than or equal to 4 cm classified in this report as benign, likely benign, or containing fat (including classification as an adenoma or myelolipoma), no follow-up imaging is recommended per consensus recommendations based on imaging criteria. Further lab evaluation could be pursued if warranted based on clinical findings.
[2024-03-25 15:39] LABS: UA Manual Slide Review YES; UA Slide Review UA Slide Review Perf
[2024-03-25 15:41] LABS: Add Urine Culture? No; Bacteria Urine TRACE /hpf; WBC Urine RARE /hpf (0-5)
[2024-03-25 15:57] LABS: Creatine Phosphokinase 66 U/L (26-192); Lipase 31 U/L (13-60); Magnesium 1.9 mg/dL (1.7-2.3)
[2024-03-25] MEDS: sodium chloride 0.9% 1,000 ML 200 ML IV (16:18)
[2024-03-25] MEDS: insulin regular-human 100 units/1 mL 10 UNIT IVP (16:18)
--- NOTE | 2024-03-25 16:21 | P.HP_ITS ---
Providers/Chief Complaint 2 Primary Care Provider: SHAUN Umana Chief Complaint: Blood sugar over 400, can't urinate History of Present Illness Daphney Thomas is a 84 year old female with history of Parkinson's, lives with her daughter, diabetic, presented with chief complaint of lethargy fatigue dysuria and poor p.o. intake. In the ER she has been diagnosed with hyponatremia generalized weakness and fatigue CT abdomen pelvis unremarkable other than degenerative spine disease, patient was hypotensive required IV fluid hydration, no sign of sepsis endorsing signs of UTI. Patient stating that she uses a cane to balance herself otherwise she is independent for daily activities. She is also endorsing nausea and 2 episode of vomiting. No recent diarrhea no chest pain or shortness of breath. Patient is stating that she noticed fever of 104 few days ago. I will request COVID-19 PCR Review of Systems 2 Const: Reports: fever(s) Eyes: Denies: change in vision ENMT: Denies: throat pain Card: Denies: chest pain Resp: Reports: dyspnea GI: Reports: nausea : Reports: dysuria Medications/Allergies Home Medications Medication Instructions Recorded Confirmed Last Taken Type citalopram 20 mg tablet 20 mg PO QAM 06/09/21 08/08/23 06/09/21 History levothyroxine 88 mcg tablet 88 mcg PO QAM 06/09/21 08/08/23 06/09/21 History (Synthroid) multivitamin 1 tab PO DAILY 06/09/21 08/08/23 06/09/21 History olanzapine 10 mg tablet 10 mg PO BEDTIME 06/09/21 08/08/23 06/08/21 History olanzapine 5 mg tablet 5 mg PO QAM 06/09/21 08/08/23 06/09/21 History omega 3-rwt-akl-fish oil 1,200 mg 1 cap PO BID 06/09/21 08/08/23 06/09/21 History (144 mg-216 mg) capsule (Fish Oil) amlodipine 5 mg tablet 5 mg PO QAM 08/09/21 08/08/23 Unknown History hydroxyzine pamoate 25 mg capsule 25 mg PO TID PRN Anxiety #90 caps 05/24/22 08/08/23 Unknown Rx carbamazepine 200 mg tablet 200 mg PO BID #60 tabs 09/18/22 08/08/23 Unknown Rx FAST FORM COCK UP SPLINT #1 ea 10/18/22 08/08/23 Unknown Rx cholecalciferol (vitamin D3) 75 6,000 unit PO DAILY 10/18/22 08/08/23 Unknown History mcg (3,000 unit) tablet rosuvastatin 20 mg tablet 20 mg PO BEDTIME 10/18/22 08/08/23 Unknown History Lactobacillus rhamnosus-Bifidobac. 1 cap PO DAILY 08/08/23 08/08/23 Unknown History animalis 3 billion cell capsule ([employer]) cyanocobalamin (vitamin B-12) 1 ml PO DAILY 08/08/23 08/08/23 Unknown History 1,000 mcg/mL oral drops (Vitamin B-12) furosemide 20 mg tablet (Lasix) 20 mg PO QAM 08/08/23 08/08/23 Unknown History gabapentin 100 mg capsule 100 mg PO BID PRN unknown 08/08/23 08/08/23 Unknown History loratadine 10 mg tablet 10 mg PO DAILY 08/08/23 08/08/23 Unknown History metoprolol tartrate 25 mg tablet 25 mg PO BID 08/08/23 08/08/23 Unknown History potassium gluconate 595 mg (99 mg) 595 mg PO .UP TO QID 08/08/23 08/08/23 Unknown History tablet sitagliptin phosphate 100 mg 100 mg PO QAM 08/08/23 08/08/23 Unknown History tablet (Januvia) nitrofurantoin 100 mg PO BID #6 caps 08/19/23 Unknown Rx monohydrate/macrocrystals 100 mg capsule vancomycin 125 mg capsule 125 mg PO QID #28 caps 08/19/23 Unknown Rx Allergies Allergy/AdvReac Type Severity Reaction Status Date / Time No Known Allergies Allergy Verified 03/25/24 13:58 PFSH Acute 2 PFSH: Medical History Congestive heart failure Parkinsons C. difficile diarrhea Enteritis UTI (urinary tract infection) Gastritis Constipation Bilateral lower extremity edema Nausea & vomiting Abdominal pain Small bowel obstruction History of hypothyroidism History of hypertension History of type 2 diabetes mellitus Surgical History History of hysterectomy History of cholecystectomy Family History Mother CAD (coronary artery disease) Social History Smoking and tobacco/nicotine status: never used tobacco/nicotine Alcohol intake: never Substance/Drug Use: never Vitals/I&O/Wt Last Vital Signs Temp 98.3 F 03/25/24 13:52 Pulse 74 03/25/24 15:00 Resp 18 03/25/24 15:00 BP 156/94 03/25/24 15:00 Pulse Ox 95 03/25/24 15:00 O2 Del Method Nasal Cannula 03/25/24 15:00 O2 Flow Rate 2 03/25/24 15:00 Weight last 48 hrs Weight 104.326 kg Physical Exam 2 Narrative: Resting tremors Hemodynamically stable Pleasant cooperative Nonfocal neuroexam GCS 15 Abdomen soft S1, S2 Currently on 2 L Data 03/25/24 14:18 03/25/24 14:18 A&P Assessment and plan (1) History of type 2 diabetes mellitus: (2) History of hypothyroidism: (3) Parkinsons: (4) Hyponatremia: Plan Hyponatremia Hold Lasix Patient is endorsing nausea vomiting poor p.o. intake Start IV fluids Monitor sodium level Generalized weakness and fatigue could be related to hyponatremia I will resume her levothyroxine On/off phenomenon of Parkinson's Add Sinemet low-dose History of CHF without acute exacerbation monitor closely for now I would continue metoprolol for now at lower dose Patient is hypotensive requiring IV fluids Add DVT prophylaxis of heparin Patient lives with her daughter Attestations 2 Medical Necessity Statement*: Likely will be discharged within 48 hours Diagnoses History of type 2 diabetes mellitus Z86.39 History of hypothyroidism Z86.39 Parkinsons G20.A1 Hyponatremia E87.1
--- NOTE | 2024-03-25 16:29 | ECG_ITS ---
[facility] Test Date: 2024-03-25 Pat Name: Daphney Thomas Department: Room: Gender: Female Stamp Pad Maker: : 1940 Requested By: Pasquale Reynoso Order Number: [id number] Deirdre MD: Ramez Cooney M.D. Measurements Intervals [place] Rate: 83 P: 63 HI: 154 QRS: 30 QRSD: 86 T: 29 QT: 358 QTc: 421 Interpretive Statements SINUS RHYTHM WITH OCCASIONAL VENTRICULAR PREMATURE COMPLEXES POSSIBLE LEFT ATRIAL ENLARGEMENT [-0.1mV P-WAVE IN V1/V2] ANTERIOR MYOCARDIAL INFARCTION , PROBABLY OLD [40+ ms Q WAVE AND/OR ST/T ABNORMALITY IN V3/V4] Compared to ECG 03/25/2024 15:02:54 No significant changes Electronically Signed On 03-25-2024 16:43:54 CDT by Ramez Cooney M.D. [email or web address]/store/[id number]
[2024-03-25 17:16] LABS: Adenovirus Not Detected (NOT DETECT); Chlamydia Pneumoniae Not Detected (NOT DETECT); Coronavirus 229E,HKU1,NL63,OC4 Not Detected (NOT DETECT); Human Metapneumovirus Not Detected (NOT DETECT); Human Rhinovirus/Enterovirus Not Detected (NOT DETECT); Influenza A Not Detected (NOT DETECT); Influenza A H1 Not Detected (NOT DETECT); Influenza A H1-2009 Not Detected (NOT DETECT); Influenza A H3 Not Detected (NOT DETECT); Influenza B Not Detected (NOT DETECT); Mycoplasma Pneumoniae Not Detected (NOT DETECT); Parainfluenza Virus Type 1 Not Detected (NOT DETECT); Parainfluenza Virus Type 2 Not Detected (NOT DETECT); Parainfluenza Virus Type 3 Not Detected (NOT DETECT); Parainfluenza Virus Type 4 Not Detected (NOT DETECT); Respiratory Syncytial Virus A Not Detected (NOT DETECT); Respiratory Syncytial Virus B Not Detected (NOT DETECT); SARS-COV-2 Not Detected (NOT DETECT)
[2024-03-25 17:57] LABS: Ketone (Acetest) Serum Negative (Negative)
[2024-03-25 18:02] LABS: Troponin 5 2HR 10.74 ng/L (0-10)
[2024-03-25 18:05] LABS: Troponin 5 2HR Delta -1.26 ABS# (0-10)
[2024-03-25 18:23] LABS: Glucose Point of Care 232 mg/dL (70-110)
[2024-03-25] MEDS: carbidopa-levodopa 25-100mg Tablet 1 EACH PO (19:31)
--- NOTE | 2024-03-25 19:36 | PC.NURSE ---
Arrival to ICU Patient arrived to ICU at 1836. On continuous cardiac monitoring. Skin assessment done: 3 pressure injuries to sacrum, see wound assessment.
[2024-03-25] MEDS: sodium chloride 0.9% 1,000 ML 75 ML IV (20:17)
[2024-03-25] MEDS: acetaminophen 500 mg Tablet PO (20:19)
--- NOTE | 2024-03-25 20:29 | ECG_ITS ---
[facility] Test Date: 2024-03-25 Pat Name: Daphney Thomas Department: Room: ICU11 Gender: Female Scraper Loader Operator: : 1940 Requested By: Pasquale Reynoso Order Number: [id number] Deirdre MD: Tio Cohen M.D. Measurements Intervals [place] Rate: 79 P: 0 OK: 0 QRS: 22 QRSD: 89 T: 12 QT: 379 QTc: 436 Interpretive Statements Possible multifocal atrial rhythm WITH ABERRANT CONDUCTION OR VENTRICULAR PREMATURE COMPLEXES ABNORMAL RHYTHM ECG Compared to ECG 03/25/2024 16:32:57 Aberrant conduction of supraventricular beat(s) now present Sinus rhythm no longer present Myocardial infarct finding no longer present Because of the heavy baseline artifact, it is a defective EKG. Need to repeat Electronically Signed On 03-26-2024 17:41:07 CDT by Tio Cohen M.D. [email or web address] [email or web address].[place] [employer]/store/[id number]
[2024-03-25] MEDS: OLANZapine 10 mg TABLET PO (21:07)
[2024-03-25 21:12] LABS: Glucose Point of Care 202 mg/dL (70-110)
[2024-03-25 21:22] LABS: Adenovirus Not Detected (NOT DETECT); Chlamydia Pneumoniae Not Detected (NOT DETECT); Coronavirus 229E,HKU1,NL63,OC4 Not Detected (NOT DETECT); Human Metapneumovirus Not Detected (NOT DETECT); Human Rhinovirus/Enterovirus Not Detected (NOT DETECT); Influenza A Not Detected (NOT DETECT); Influenza A H1 Not Detected (NOT DETECT); Influenza A H1-2009 Not Detected (NOT DETECT); Influenza A H3 Not Detected (NOT DETECT); Influenza B Not Detected (NOT DETECT); Mycoplasma Pneumoniae Not Detected (NOT DETECT); Parainfluenza Virus Type 1 Not Detected (NOT DETECT); Parainfluenza Virus Type 2 Not Detected (NOT DETECT); Parainfluenza Virus Type 3 Not Detected (NOT DETECT); Parainfluenza Virus Type 4 Not Detected (NOT DETECT); Respiratory Syncytial Virus A Not Detected (NOT DETECT); Respiratory Syncytial Virus B Not Detected (NOT DETECT); SARS-COV-2 Not Detected (NOT DETECT)
[2024-03-25] MEDS: morphine 4 mg/mL SDV 1 mL 1 MG IVP ×2 (22:03→23:57)
[2024-03-25 22:24] LABS: Troponin 5 6HR 13.43 ng/L (0-10); Troponin 5 6HR Delta 1.43 ng/L (0-12)
[2024-03-25 22:28] LABS: Sodium 135 mmol/L (136-145)
--- NOTE | 2024-03-25 23:06 | ECG_ITS ---
[facility] Test Date: 2024-03-25 Pat Name: Daphney Thomas Department: Room: ICU11 Gender: Female Composition Floor Layer: : 1940 Requested By: Jay Wilks Order Number: [id number] Deirdre MD: Tio Cohen M.D. Measurements Intervals [place] Rate: 81 P: 49 CO: 133 QRS: 18 QRSD: 75 T: 10 QT: 343 QTc: 400 Interpretive Statements SINUS RHYTHM WITH FREQUENT VENTRICULAR PREMATURE COMPLEXES POSSIBLE ANTERIOR MYOCARDIAL INFARCTION , PROBABLY OLD [30 ms Q WAVE IN V3/V4, OR R < 0.2 mV IN V4] ABNORMAL RHYTHM ECG Compared to ECG 03/25/2024 21:44:28 Myocardial infarct finding now present Atrial fibrillation no longer present Aberrant conduction of supraventricular beat(s) no longer present Electronically Signed On 03-26-2024 17:34:39 CDT by Tio Cohen M.D. [id number]
[2024-03-25] MEDS: lidocaine 2% viscous 15 ML, aluminum-mag hydrox-simethicon 30 ML, sucralfate oral liq 1 GM PO (23:26)
--- NOTE | 2024-03-25 23:33 | PC.NURSE ---
Addendum entered by AURELIA Lopez 03/26/24 00:02: Updated Dr. Wilks of current vitals and persistent pain. Ordered to continue IVP morphine. Original Note: Chest Pain Went into patient's room, patient complaining of severe chest pain. States that it feels like heartburn. States, I'm suffering. EKG performed. Called Dr. Wikls at 3167. Dr. Wilks ordered GI cocktail which was given to the patient. Ordered 5th gen troponin which was drawn.
[2024-03-25 23:58] LABS: Troponin T (5th) Once 14 ng/L (0-10)
[2024-03-26] VITALS (39 sets, daily range): BP systolic 127–179; BP diastolic 58–113; PULSE 60–93; RESP 12–31; TEMP 36.1–37.3; O2SAT 90–100; BMI 35.4
[2024-03-26 01:19] LABS: Sodium 136 mmol/L (136-145)
[2024-03-26] MEDS: morphine 4 mg/mL SDV 1 mL 1 MG IVP ×3 (02:01→20:36)
[2024-03-26] MEDS: ondansetron 2 mg/ML SDV 2 mL 4 MG IVP ×2 (02:08→09:26)
[2024-03-26 05:20] LABS: Basophils % 0.1 %; Eosinophils # 0.3 10^3/uL (0.0-0.8); Eosinophils % 3.5 %; Hematocrit 34.5 % (36-47); Lymphocytes # 2.2 10^3/uL (0.8-4.8); Lymphocytes % 29.9 %; Mean Corpuscular HGB Conc 32.8 g/dL (30-55); Mean Corpuscular Hemoglobin 31.2 pg (27-33); Mean Corpuscular Volume 95.3 fl (85-98); Mean Platelet Volume 9.8 fL (7.4-10.4); Monocytes # 0.6 10^3/uL (0.2-0.9); Monocytes % 8.2 %; Neutrophils # 4.25 10^3/uL (1.8-7.7); Nucleated Red Blood Cells % 0 %; Platelet Count 193 10^3/cmm (157-399); Red Blood Count 3.62 10^6/uL (3.85-5.65); Red Cell Distribution Width 13.2 % (12.1-15.1); White Blood Count 7.33 10^3/uL (3.29-11.43)
[2024-03-26] MEDS: levothyroxine 88 mcg Tablet PO (05:28)
[2024-03-26 05:38] LABS: Anion Gap 13.8 (5-19); Blood Urea Nitrogen 20 mg/dL (8-23); Calcium 8.7 mg/dL (8.5-10.5); Carbon Dioxide 26 mmol/L (22-29); Chloride 102 mmol/L (98-107); Creatinine Clr Calc Pharmacy 44.3901; Glucose 241 mg/dL (65-115); Magnesium 1.7 mg/dL (1.7-2.3); Osmolality Calculated 295 mOsm/kg (285-295); Potassium 4.8 mmol/L (3.5-5.1); Sodium 137 mmol/L (136-145)
[2024-03-26 07:34] LABS: Glucose Point of Care 291 mg/dL (70-110)
[2024-03-26] MEDS: carbidopa-levodopa 25-100mg Tablet 1 EACH PO ×3 (08:04→20:35)
[2024-03-26] MEDS: sennosides-docusate Tablet 1 TAB PO (08:04)
[2024-03-26] MEDS: metoprolol tartrate 25 mg Tablet 12.5 MG PO ×2 (08:04→20:35)
[2024-03-26] MEDS: insulin lispro 100 unit/1 mL SUBCUT ×3 (08:04→18:07)
--- NOTE | 2024-03-26 08:31 | XR_ITS ---
WS: [id number] Examination: XR KUB portable [id number] Reason for Exam: abdominal pain Date: 03/26/2024 Comparison: August 14, 2023 Findings: The bone density is diminished There is been previous kyphoplasty at L1. Severe lower lumbar degenerative changes are noted. Surgical clips are identified in the right upper quadrant suggesting cholecystectomy Air is identified within what I suspect represents the stomach and colon without displacement are abn ormal small bowel distention. The psoas margins are well seen XR/XR KUB portable [id number] Impression: Nonspecific appearance of the KUB.
[2024-03-26 11:41] LABS: Glucose Point of Care 265 mg/dL (70-110)
--- NOTE | 2024-03-26 12:04 | P.PN_ITS ---
Subjective 2 Subjective: Patient is stating that she is feeling nauseous did not eat her breakfast very much Hypertensive Currently on 2 L Can transfer out of ICU to [facility] Left a voicemail to her daughter Vitals/I&O/Wt Last Vital Signs Temp 98.3 F 03/26/24 08:00 Pulse 77 03/26/24 08:00 Resp 13 03/26/24 08:00 BP 176/74 03/26/24 08:00 Pulse Ox 94 03/26/24 08:00 O2 Del Method Nasal Cannula 03/26/24 06:00 O2 Flow Rate 3 03/26/24 06:00 03/25/24 03/26/24 03/26/24 22:59 06:59 14:59 Intake Total 1000 / 1000 687.5 / 1687.5 200 / 200 Output Total 1600 / 1600 Balance 1000 / 1000 -912.5 / 87.5 200 / 200 Weight last 48 hrs Weight 102.5 kg Weight 105.5 kg Weight 104.326 kg Physical Exam 2 Narrative: Anxious appearing female Hypertensive today Abdomen soft on clinical exam Pleasant and cooperative Currently on 3 L Hypertensive S1, S2 No sign of focal deficit Urinary Catheter Management: Edwards: Cath Placed During This Visit: yes Reason for Continuing Indwelling Catheter: Accurate Measurement of Urinary Output in Critically Ill Patients Urinary Catheter Date of Insertion: 03/25/24 Urinary Catheter Time of Insertion: 17:50 Data 03/26/24 04:58 03/26/24 04:58 Micro: Microbiology 03/25/24 17:14 Blood Culture - Preliminary Blood SPECIMEN COLLECTED 03/25/24 17:00 Blood Culture - Preliminary Blood SPECIMEN COLLECTED A&P Assessment and plan (1) History of type 2 diabetes mellitus: (2) History of hypothyroidism: (3) Hyponatremia: (4) Parkinsons: (5) ALYCIA (acute kidney injury): Plan ALYCIA: Improved with IV fluid hydration Hypotension hypovolemic in nature Improved with IV fluids Continue metoprolol Will resume amlodipine as well Hold off on Lasix Parkinson's: Added Sinemet Out of ICU to [facility] Plan to discharge her by tomorrow She lives with her daughter Left a voicemail Complaining of nausea KUB requested we did not show any sign of obstruction, small bowel distention concerning for ileus I will change her diet Continue levothyroxine Disposition likely home by tomorrow Full code Attestations 2 Medical Necessity Statement*: Discharge likely tomorrow Diagnoses History of type 2 diabetes mellitus Z86.39 History of hypothyroidism Z86.39 Hyponatremia E87.1 Parkinsons G20.A1 ALYCIA (acute kidney injury) N17.9
[2024-03-26 13:26] LABS: Estmated Average Glucose 246; Hemoglobin A1C 10.2 % (4.0-6.0)
[2024-03-26] MEDS: amlodipine 10 mg Tablet PO (16:00)
[2024-03-26 16:17] LABS: Glucose Point of Care 230 mg/dL (70-110)
[2024-03-26] MEDS: OLANZapine 10 mg TABLET PO (20:36)
[2024-03-26 21:23] LABS: Glucose Point of Care 206 mg/dL (70-110)
[2024-03-27] VITALS (10 sets, daily range): BP systolic 125–157; BP diastolic 62–91; PULSE 53–89; RESP 17–20; TEMP 36.6–37.2; O2SAT 94–98
[2024-03-27] MEDS: morphine 4 mg/mL SDV 1 mL 1 MG IVP ×2 (00:33→09:44)
[2024-03-27 04:11] LABS: Blood Urea Nitrogen 18 mg/dL (8-23); Calcium 9.1 mg/dL (8.5-10.5); Carbon Dioxide 26 mmol/L (22-29); Chloride 100 mmol/L (98-107); Creatinine Clr Calc Pharmacy 47.6914; Glucose 260 mg/dL (65-115); Osmolality Calculated 293 mOsm/kg (285-295); Sodium 136 mmol/L (136-145)
[2024-03-27 04:14] LABS: Anion Gap 15.5 (5-19); Potassium 5.5 mmol/L (3.5-5.1)
[2024-03-27] MEDS: levothyroxine 88 mcg Tablet PO (06:07)
[2024-03-27 06:39] LABS: Glucose Point of Care 286 mg/dL (70-110)
--- NOTE | 2024-03-27 09:03 | CT_ITS ---
WS: [id number] CT ABDOMEN AND PELVIS NONCONTRAST HISTORY: nausea TECHNIQUE: Imaging performed through the abdomen and pelvis. Coronal and sagittal reformats are submi tted. All CT scans at [facility] use at least one of these dose optimization techniques: auto mated exposure control; mA and/or kV adjustment per patient size (includes targeted exams where dose is matched to clinical indication); or iterative reconstruction. DLP: 1088.29 mGy.cm COMPARISON: 03/25/2024 Lower thorax: Mild dependent changes. No pneumonia. Mild cardiomegaly. Small hiatal hernia. Liver: Normal size liver. No mass or bile duct dilatation. Gallbladder: Prior cholecystectomy. Pancreas: Mild diffuse atrophy. Spleen: Normal. Adrenal glands: Stable low-attenuation RIGHT adrenal mass measuring 2.7 x 3.0 cm. Probably representi ng an adenoma. Normal LEFT adrenal gland. Right kidney: Mild perinephric stranding. No obstruction. Left kidney: Mild perinephric stranding with no obstruction. Aorta: Mild atherosclerosis abdominal aorta with no aneurysm. No free fluid, intraperitoneal air or significant lymphadenopathy. GI tract: No obstruction or colitis. Mild distal colonic diverticular disease. No acute diverticuliti s. Abdominal wall: Umbilical hernia. Contains fat only. Pelvis: Edwards catheter present in the nondistended urinary bladder. Small amount of air in the bladde r. Prior hysterectomy. Osseous structures: L1 vertebroplasty. Advanced degenerative spondylitic changes in the lumbar spine. Narrowing of the hip joints. CT/CT abdomen pelvis wo con [id number] IMPRESSION: 1. No acute abdominal or pelvic abnormalities. 2. No colitis or GI tract obstruction. 3. Prior cholecystectomy and hysterectomy. 4. No renal obstruction.
[2024-03-27] MEDS: insulin lispro 100 unit/1 mL SUBCUT ×2 (09:40→13:17)
[2024-03-27] MEDS: sennosides-docusate Tablet 1 TAB PO (09:41)
[2024-03-27] MEDS: metoprolol tartrate 25 mg Tablet 12.5 MG PO ×2 (09:41→21:16)
[2024-03-27] MEDS: carbidopa-levodopa 25-100mg Tablet 1 EACH PO ×3 (09:41→21:16)
[2024-03-27] MEDS: amlodipine 10 mg Tablet PO (09:41)
[2024-03-27] MEDS: lidocaine 2% viscous 15 ML, aluminum-mag hydrox-simethicon 30 ML, sucralfate oral liq 1 GM PO (09:42)
[2024-03-27] MEDS: ondansetron 2 mg/ML SDV 2 mL 4 MG IVP ×2 (09:44→19:53)
--- NOTE | 2024-03-27 10:09 | PC.CHAP ---
Pastoral Care Encounter/Spiritual Assessment Type of Contact [] Declined driller multiple spindle visit [] Patient/Family/Request visit [] Outpatient visit [] Follow-up visit [] Physician referral [] Code/Alert [] Routine visit [] Staff referral [] Actively dying [] Patient sleeping [] Family support [] [] Out of room [] Palliative care [] [x] Receiving care in room [] Pre-surgical visit [] Trauma [] Long length of stay [] ICU visit [] Other: Relational/Emotional Strength [] Patient feels connected with others/family/visitors/staff [] Distress [] Loneliness/isolation [] Abandonment Spirituality of Patient [] Person of Francesca [] Attends Anabaptist of their Francesca [] Believes in Prayer [] Reads Bible or Congregational materials [] There are Spiritual issues to be addressed Cold Working Supervisor Interventions [] Prayer [] Active listening [] Non-anxious presence [] Spiritual/emotional support [] Crisis/trauma care [] Spiritual counseling [] Bereavement support [] Provided bereavement packet [] Provided Bible/devotional materials [] Provided toy/stuffed animal, coloring book to patient or family member [] Provided Communion [] Anointing/[place] [] Salvation [] Completed spiritual assessment [] Other: Impact on Illness or Injury [] Angry [] Fearful [] Anxious [] Often cries [] Exhaustion [] Unable to work [] Unable to attend cheondoism [] Unable to walk/stand [] Unable to read [] Unable to drive [] Unable to eat/drink [] Unable to sleep [] Unable to be with family [] Patient intubated [] Other: Summary Time spent with patient
--- NOTE | 2024-03-27 11:02 | P.PN_ITS ---
Subjective 2 Subjective: Patient is complaining of back pain and nausea Did not tolerate gastric emptying study, I have requested another CT scan Patient became upset and started crying when I was discussing option of fpc if she would prefer, had a meeting with her daughter today as well Her hemoglobin A1c is 10.2 which has worsened from 6.4 in July this year As per the daughter she was giving short acting insulin which was 5 years old at home Hyperkalemia blood sample was hemolyzed Creatinine improving, Patient does not want to go to fpc this has been clearly stated by the patient and her daughter Vitals/I&O/Wt Last Vital Signs Temp 97.8 F 03/27/24 08:00 Pulse 89 03/27/24 08:00 Resp 18 03/27/24 09:44 BP 137/87 03/27/24 08:00 Pulse Ox 96 03/27/24 08:00 O2 Del Method Nasal Cannula 03/27/24 08:00 O2 Flow Rate 2 03/27/24 04:00 03/26/24 03/27/24 03/27/24 22:59 06:59 14:59 Intake Total 552.5 / 1212.5 Output Total 1200 / 1200 650 / 1850 Balance -647.5 / 12.5 -650 / -637.5 Weight last 48 hrs Weight 105.035 kg Weight 102.5 kg Weight 105.5 kg Weight 104.326 kg Physical Exam 2 Narrative: Morbidly obese early female No signs of stroke Clinical signs of dehydration Nontender abdomen Bowel sounds present S1, S2 variable Currently on 2 L nasal cannula GCS 15 Daughter at the bedside Urinary Catheter Management: Edwards: Cath Placed During This Visit: yes Reason for Continuing Indwelling Catheter: Accurate Measurement of Urinary Output in Critically Ill Patients Urinary Catheter Date of Insertion: 03/25/24 Urinary Catheter Time of Insertion: 17:50 Data 03/26/24 04:58 03/27/24 03:30 Micro: Microbiology 03/25/24 17:14 Blood Culture - Preliminary Blood NEGATIVE TO DATE 03/25/24 17:00 Blood Culture - Preliminary Blood NEGATIVE TO DATE A&P Assessment and plan (1) History of type 2 diabetes mellitus: (2) History of hypothyroidism: (3) Hyponatremia: (4) Parkinsons: (5) ALYCIA (acute kidney injury): Plan ALYCIA: Improved with IV fluid hydration Will discontinue IV fluids around 6 PM today Monitor closely because patient also carries history of diastolic CHF Clinically patient looks dry Hypotension hypovolemic in nature Improved with IV fluids Continue metoprolol Will resume amlodipine as well Hold off on Lasix for now Parkinson's: Added Sinemet I did not see Sinemet in her home medications Complaining of nausea KUB requested we did not show any sign of obstruction, small bowel distention concerning for ileus I will change her diet Patient did not tolerate gastric emptying study I will request another CT scan of abdomen pelvis If her nausea has not improved she probably will need an EGD We will add Protonix Continue levothyroxine for history of hypothyroidism Patient and daughter both prefer home health at home and does not want to discuss SNF option PT evaluation is pending Patient has compression fracture for which she is getting opioids Uncontrolled diabetes my suspicion is related to gastroparesis Patient is complaining of nausea and tries to eat less, I have asked daughter to use sliding scale I would only put her on low-dose Lantus 10 units for now She is taking Januvia at home Full code Consistent carb diet Disposition Home when ready Attestations 2 Medical Necessity Statement*: Continue medical management Diagnoses History of type 2 diabetes mellitus Z86.39 History of hypothyroidism Z86.39 Hyponatremia E87.1 Parkinsons G20.A1 ALYCIA (acute kidney injury) N17.9
[2024-03-27 11:53] LABS: Glucose Point of Care 296 mg/dL (70-110)
[2024-03-27] MEDS: sodium chloride 0.9% 1,000 ML 75 ML IV (13:17)
[2024-03-27 16:41] LABS: Glucose Point of Care 108 mg/dL (70-110)
[2024-03-27] MEDS: pantoprazole 40 mg SDV IVP (18:25)
[2024-03-27] MEDS: acetaminophen 500 mg Tablet PO (19:53)
[2024-03-27 20:21] LABS: Glucose Point of Care 165 mg/dL (70-110)
[2024-03-27] MEDS: insulin glargine 100 units/1 mL 10 UNIT SUBCUT (21:16)
[2024-03-27] MEDS: OLANZapine 10 mg TABLET PO (21:16)
--- NOTE | 2024-03-27 23:48 | CTR_ITS ---
PROCEDURE INFORMATION: Exam: CT Head Without Contrast Exam date and time: 03/28/2024 12:20 AM Age: 84 years old Clinical indication: Altered mental status/memory loss and other: Change in mental status; Additional info: Change in mentation TECHNIQUE: Imaging protocol: Computed tomography of the head without contrast. Radiation optimization: All CT scans at this facility use at least one of these dose optimization techniques: automated exposure control; mA and/or kV adjustment per patient size (includes targeted exams where dose is matched to clinical indication); or iterative reconstruction. COMPARISON: CT head wo con* [id number] 06/02/2021 1:50 PM RADIATION DOSE METRICS: Total DLP (mGy-cm): 972.24 FINDINGS: Brain: Mild form of chronic ischemic small vessel disease.. No hemorrhage. No recent infarct. No mass effect. Cerebral ventricles: No ventriculomegaly. Paranasal sinuses: Mucosal disease in the left sphenoid sinus. Mastoid air cells: Visualized mastoid air cells are well aerated. Bones: Bilateral hyperostosis frontalis. Moderate degenerative at the anterior C1-C2 articulation. Soft tissues: Unremarkable. CT/CT head wo con* [id number] IMPRESSION: No large territorial infarct or intracranial bleed.
[2024-03-28] VITALS (11 sets, daily range): BP systolic 122–177; BP diastolic 61–78; PULSE 78–94; RESP 16–20; TEMP 36.4–36.8; O2SAT 91–96
[2024-03-28 01:40] LABS: Charge for UA Resulting for Rev
[2024-03-28 01:42] LABS: Bilirubin Urine Negative (Negative); Blood Urine Negative (Negative); Glucose Urine UA Negative (Normal); Ketones Urine 1+ (Negative); Leukocyte Esterase Urine 2+ (Negative); Nitrate Urine Negative (Negative); Protein Urine 1+ (Negative); Specific Gravity, Urine 1.015 (1.005-1.030); pH Urine 5.5 (5-7)
[2024-03-28 02:29] LABS: UA Manual Slide Review YES; Urine Color Yellow (Yellow)
[2024-03-28 02:30] LABS: Bacteria Urine 4+ /hpf; Mucus Urine 1+ /hpf; RBC Urine 0-4 /hpf (0-2); Squamous Epithelial Cell Urine 0-4 /hpf (0-5); Urine Appearance Cloudy (CLEAR); WBC Urine 15-25 /hpf (0-5)
[2024-03-28 02:31] LABS: Add Urine Culture? Yes
[2024-03-28 05:04] LABS: Eosinophils # 0.2 10^3/uL (0.0-0.8); Eosinophils % 4.1 %; Hematocrit 36.4 % (36-47); Lymphocytes # 1.5 10^3/uL (0.8-4.8); Lymphocytes % 27.4 %; Mean Corpuscular HGB Conc 31.6 g/dL (30-55); Mean Corpuscular Volume 98.1 fl (85-98); Mean Platelet Volume 9.9 fL (7.4-10.4); Monocytes # 0.5 10^3/uL (0.2-0.9); Monocytes % 8.9 %; Neutrophils # 3.31 10^3/uL (1.8-7.7); Neutrophils % 59.2 %; Nucleated Red Blood Cells % 0 %; Platelet Count 195 10^3/cmm (157-399); Red Blood Count 3.71 10^6/uL (3.85-5.65); Red Cell Distribution Width 13.2 % (12.1-15.1); White Blood Count 5.59 10^3/uL (3.29-11.43)
[2024-03-28 05:28] LABS: Anion Gap 16.7 (5-19); Blood Urea Nitrogen 13 mg/dL (8-23); Calcium 8.9 mg/dL (8.5-10.5); Carbon Dioxide 22 mmol/L (22-29); Chloride 102 mmol/L (98-107); Creatinine Clr Calc Pharmacy 59.1886; Glucose 217 mg/dL (65-115); Osmolality Calculated 289 mOsm/kg (285-295); Potassium 4.7 mmol/L (3.5-5.1); Sodium 136 mmol/L (136-145)
[2024-03-28] MEDS: levothyroxine 88 mcg Tablet PO (06:03)
[2024-03-28 06:37] LABS: Glucose Point of Care 235 mg/dL (70-110)
--- NOTE | 2024-03-28 09:02 | PC.SOCIAL ---
IMM Updated Updated pt on IMM. No questions voiced. Provided pt a copy. Initialed, dated, & timed a copy & placed in chart.
[2024-03-28] MEDS: metoprolol tartrate 25 mg Tablet 12.5 MG PO ×2 (09:45→20:38)
[2024-03-28] MEDS: sennosides-docusate Tablet 1 TAB PO (09:46)
[2024-03-28] MEDS: amlodipine 10 mg Tablet PO (09:46)
[2024-03-28] MEDS: insulin lispro 100 unit/1 mL SUBCUT ×3 (09:46→17:13)
[2024-03-28] MEDS: carbidopa-levodopa 25-100mg Tablet 1 EACH PO ×3 (09:46→20:39)
[2024-03-28] MEDS: pantoprazole 40 mg SDV IVP ×2 (09:46→17:13)
--- NOTE | 2024-03-28 10:02 | PC.CHAP ---
Pastoral Care Encounter/Spiritual Assessment Type of Contact [] Declined contract management specialist visit [] Patient/Family/Request visit [] Outpatient visit [] Follow-up visit [] Physician referral [] Code/Alert [x] Routine visit [] Staff referral [] Actively dying [] Patient sleeping [] Family support [] [] Out of room [] Palliative care [] [] Receiving care in room [] Pre-surgical visit [] Trauma [] Long length of stay [] ICU visit [] Other: Relational/Emotional Strength [] Patient feels connected with others/family/visitors/staff [x] Distress [] Loneliness/isolation [] Abandonment Spirituality of Patient [x] Person of Francesca [x] Attends Druze of their Francesca [x] Believes in Prayer [] Reads Bible or Anabaptism materials [] There are Spiritual issues to be addressed Press Tool Maker Interventions [x] Prayer [x] Active listening [] Non-anxious presence [x] Spiritual/emotional support [] Crisis/trauma care [] Spiritual counseling [] Bereavement support [] Provided bereavement packet [] Provided Bible/devotional materials [] Provided toy/stuffed animal, coloring book to patient or family member [] Provided Communion [] Anointing/[place] [] Salvation [] Completed spiritual assessment [] Other: Impact on Illness or Injury [] Angry [] Fearful [] Anxious [] Often cries [] Exhaustion [] Unable to work [] Unable to attend rastafarian [] Unable to walk/stand [] Unable to read [] Unable to drive [] Unable to eat/drink [] Unable to sleep [] Unable to be with family [] Patient intubated [] Other: Summary Nervous, Confused Time spent with patient 15 Min
[2024-03-28 11:31] LABS: Glucose Point of Care 222 mg/dL (70-110)
--- NOTE | 2024-03-28 13:52 | P.PN_ITS ---
Subjective 2 Subjective: Seen this morning. Patient states she feels slightly better. She drinks 7-Up which she was able to keep down. She would like to try some broth. Vitals/I&O/Wt Last Vital Signs Temp 98.2 F 03/28/24 12:00 Pulse 78 03/28/24 13:22 Resp 19 H 03/28/24 12:00 BP 130/65 03/28/24 12:00 Pulse Ox 91 03/28/24 12:00 O2 Del Method Room Air 03/28/24 12:00 O2 Flow Rate 2 03/27/24 04:00 03/27/24 03/28/24 03/28/24 22:59 06:59 14:59 Intake Total 120 / 360 1360 / 1720 120 / 120 Output Total 1300 / 1300 350 / 1650 Balance -1180 / -940 1010 / 70 120 / 120 Weight last 48 hrs Weight 105.506 kg Weight 105.035 kg Physical Exam 2 Narrative: Morbidly obese early female No signs of stroke Clinical signs of dehydration Nontender abdomen Bowel sounds present S1, S2 variable Currently on 2 L nasal cannula GCS 15 Urinary Catheter Management: Edwards: Cath Placed During This Visit: yes Reason for Continuing Indwelling Catheter: Acute Urinary Retention or Obstruction Urinary Catheter Date of Insertion: 03/25/24 Urinary Catheter Time of Insertion: 17:50 Data 03/28/24 04:49 03/28/24 04:49 A&P Assessment and plan (1) History of type 2 diabetes mellitus: (2) History of hypothyroidism: (3) Hyponatremia: (4) Parkinsons: (5) ALYCIA (acute kidney injury): Plan ALYCIA: Improved with IV fluid hydration Will discontinue IV fluids around 6 PM today Monitor closely because patient also carries history of diastolic CHF Clinically patient looks dry Hypotension hypovolemic in nature Improved with IV fluids Continue metoprolol Will resume amlodipine as well Hold off on Lasix for now Parkinson's: Added Sinemet I did not see Sinemet in her home medications Complaining of nausea KUB requested we did not show any sign of obstruction, small bowel distention concerning for ileus I will change her diet Patient did not tolerate gastric emptying study I will request another CT scan of abdomen pelvis If her nausea has not improved she probably will need an EGD We will add Protonix Continue levothyroxine for history of hypothyroidism Patient and daughter both prefer home health at home and does not want to discuss SNF option PT evaluation is pending Patient has compression fracture for which she is getting opioids Uncontrolled diabetes my suspicion is related to gastroparesis Patient is complaining of nausea and tries to eat less, I have asked daughter to use sliding scale I would only put her on low-dose Lantus 10 units for now She is taking Januvia at home Full code Consistent carb diet Disposition Home when ready 03/28 Discussed with patient to continue carbohydrate consistent diet. Nausea is improving. Continue to monitor at this time. Continue to control blood sugar. ? Will reassess in AM. If patient continues to have symptoms may consider EGD. Patient agreeable. We will see how she does with further food intake. CT abdomen pelvis repeated was also negative for acute pathology. Attestations 2 Medical Necessity Statement*: Monitor patient in hospital today. Possibly discharge in a.m. if clinically improved. Diagnoses History of type 2 diabetes mellitus Z86.39 History of hypothyroidism Z86.39 Hyponatremia E87.1 Parkinsons G20.A1 ALYCIA (acute kidney injury) N17.9
[2024-03-28] MEDS: acetaminophen 500 mg Tablet PO (14:59)
--- NOTE | 2024-03-28 16:17 | PC.NURSE ---
Straight Catheter Insertion Attempt - Attempted a straight catheter 2 times, both were ineffective and had zero urinary output results. Patient was able to void right before catheterization.
[2024-03-28 16:30] LABS: Glucose Point of Care 181 mg/dL (70-110)
[2024-03-28] MEDS: morphine 4 mg/mL SDV 1 mL 1 MG IVP (17:13)
--- NOTE | 2024-03-28 18:40 | PC.NURSE ---
SHIFT SUMMARY Patient has been out of the bed and in the chair most of the day. Patient tolerated her evening diet. She ate an entire sandwich. Patient had good urine output and had a large formed bowel movement. Patient has complained of some abdominal discomfort this evening that this nurse gave medication for.
[2024-03-28] MEDS: HYDROmorphone 1 mg/mL INJ 1 mL 0.2 MG IVP (20:10)
[2024-03-28 20:29] LABS: Glucose Point of Care 211 mg/dL (70-110)
[2024-03-28] MEDS: OLANZapine 10 mg TABLET PO (20:39)
[2024-03-28] MEDS: insulin glargine 100 units/1 mL 10 UNIT SUBCUT (20:40)
[2024-03-29] VITALS (11 sets, daily range): BP systolic 104–173; BP diastolic 67–80; PULSE 69–86; RESP 16–20; TEMP 36.4–36.9; O2SAT 92–96
[2024-03-29] MEDS: HYDROmorphone 1 mg/mL INJ 1 mL 0.2 MG IVP (03:05)
[2024-03-29] MEDS: levothyroxine 88 mcg Tablet PO (05:30)
[2024-03-29 06:20] LABS: Eosinophils # 0.2 10^3/uL (0.0-0.8); Eosinophils % 4.1 %; Hematocrit 35.1 % (36-47); Lymphocytes # 1.7 10^3/uL (0.8-4.8); Lymphocytes % 28.8 %; Mean Corpuscular HGB Conc 31.9 g/dL (30-55); Mean Corpuscular Hemoglobin 30.9 pg (27-33); Mean Corpuscular Volume 96.7 fl (85-98); Mean Platelet Volume 10.1 fL (7.4-10.4); Monocytes # 0.6 10^3/uL (0.2-0.9); Monocytes % 9.4 %; Neutrophils # 3.35 10^3/uL (1.8-7.7); Neutrophils % 57.2 %; Nucleated Red Blood Cells % 0 %; Platelet Count 198 10^3/cmm (157-399); Red Blood Count 3.63 10^6/uL (3.85-5.65); Red Cell Distribution Width 13.4 % (12.1-15.1); White Blood Count 5.86 10^3/uL (3.29-11.43)
[2024-03-29 06:27] LABS: Glucose Point of Care 251 mg/dL (70-110)
[2024-03-29 07:50] LABS: Alanine Aminotransferase < 5 U/L (0-33); Albumin Level 3.3 g/dL (3.5-5.2); Alkaline Phosphatase 110 U/L (35-105); Anion Gap 17.3 (5-19); Aspartate Amino Transferase 15 U/L (0-32); Blood Urea Nitrogen 14 mg/dL (8-23); Calcium 9.4 mg/dL (8.5-10.5); Carbon Dioxide 23 mmol/L (22-29); Chloride 100 mmol/L (98-107); Globulin 3.5 g/dL (1.3-4.6); Glucose 208 mg/dL (65-115); Magnesium 1.5 mg/dL (1.7-2.3); Osmolality Calculated 289 mOsm/kg (285-295); Potassium 4.3 mmol/L (3.5-5.1); Sodium 136 mmol/L (136-145); Total Bilirubin 0.3 mg/dL (0.15-1.2); Total Protein 6.8 g/dL (6.6-8.7)
[2024-03-29 07:51] LABS: Creatinine Clr Calc Pharmacy 52.9155
[2024-03-29] MEDS: pantoprazole 40 mg SDV IVP ×2 (07:58→17:15)
[2024-03-29] MEDS: carbidopa-levodopa 25-100mg Tablet 1 EACH PO ×3 (07:58→20:34)
[2024-03-29] MEDS: insulin lispro 100 unit/1 mL SUBCUT ×2 (07:58→12:56)
[2024-03-29] MEDS: morphine 4 mg/mL SDV 1 mL 1 MG IVP ×3 (07:59→21:01)
[2024-03-29] MEDS: ondansetron 2 mg/ML SDV 2 mL 4 MG IVP (07:59)
[2024-03-29] MEDS: sennosides-docusate Tablet 1 TAB PO (07:59)
[2024-03-29] MEDS: amlodipine 10 mg Tablet PO (07:59)
[2024-03-29] MEDS: metoprolol tartrate 25 mg Tablet 12.5 MG PO ×2 (07:59→20:35)
[2024-03-29 10:52] LABS: Glucose Point of Care 184 mg/dL (70-110)
--- NOTE | 2024-03-29 11:07 | PC.PT ---
Patient refused therapy 3 times. 1st an 2nd attempt she told therapist to come back. She refused session the third attempt.
--- NOTE | 2024-03-29 13:55 | USR_ITS ---
PROCEDURE INFORMATION: Exam: US Abdomen Complete Exam date and time: 03/29/2024 6:55 AM Age: 84 years old Clinical indication: Nausea; Prior surgery; Surgery date: 6+ months; Surgery type: Unsure of dates. Patient had gb removed; Additional info: Nausea/vomiting. , PT being held npo CT TECHNIQUE: Imaging protocol: Real-time ultrasound of the abdomen with image documentation. Complete exam. COMPARISON: CT abdomen pelvis wo con [id number] 03/27/2024 3:33 PM FINDINGS: Liver: Liver 15.6 cm. Liver is mildly heterogeneous. Please reference CT dated 03-27-24. Gallbladder: Prior cholecystectomy. Biliary ducts: Common bile duct normal. Common bile duct 9 mm Pancreas: Visualized portions of the pancreas normal. Right kidney: Right kidney is normal. Right kidney 9.2 cm Left kidney: Left kidney 9.8 cm Spleen: Spleen 12 cm Aorta: Visualized portions of the aorta is non-aneurysmal and the visualized portions of the inferior vena cava is unremarkable. Inferior vena cava: See Aorta finding. Portal venous: Flow within the portal vein is towards the liver- hepatopedal US/US abdomen complete* [id number] IMPRESSION: 1. Liver is mildly heterogeneous. Please reference CT dated 03-27-24. 2. Prior cholecystectomy.
[2024-03-29] MEDS: cefTRIAXone 1,000 mg SDV 1000 MG IVP (16:36)
[2024-03-29 16:40] LABS: Glucose Point of Care 136 mg/dL (70-110)
--- NOTE | 2024-03-29 17:22 | PC.NURSE ---
Dressing change completed to gluteus.
--- NOTE | 2024-03-29 17:57 | P.PN_ITS ---
Subjective 2 Subjective: Patient endorses lower abdominal pains. Rates 7 out of 10. She states she is not tolerating oral intake. Endorses significant nausea. States she does not want to eat anything at the moment as she thinks she will likely have emesis. We discussed her urine is consistent with UTI. Discussed plan of care. Medications: Reviewed: Yes Vitals/I&O/Wt Last Vital Signs Temp 98.2 F 03/29/24 15:37 Pulse 78 03/29/24 15:37 Resp 20 H 03/29/24 15:37 BP 128/68 03/29/24 15:37 Pulse Ox 95 03/29/24 15:37 O2 Del Method Room Air 03/29/24 15:37 O2 Flow Rate 2 03/27/24 04:00 03/29/24 03/29/24 03/29/24 06:59 14:59 22:59 Intake Total 0 / 460 Output Total 250 / 1150 600 / 600 Balance -250 / -690 -600 / -600 Weight last 48 hrs Weight 104.19 kg Weight 105.506 kg Physical Exam 2 Narrative: General: Patient is awake. Very pleasant. Head: Normocephalic. Atraumatic. EOM intact. Neck: No JVD. Cardiovascular: RRR. No gallops. No murmurs. Bilateral lower extremity edema. Lungs: Clear to auscultation, no use of accessory muscles, no crackles or wheezes. Skin: No jaundice. No rashes. Abdomen: Normal bowel sounds. Tender to palpation bilateral lower quadrants. No guarding. Genito Urinary: Edwards catheter. Rectal: Rectal exam not performed since no symptoms indicated blood loss. Extremities: No cyanosis or clubbing. Musculoskeletal: No swollen or erythematous joints. Neurological: Moves all 4 extremities. No myoclonus. Urinary Catheter Management: Edwards: Cath Placed During This Visit: yes Reason for Continuing Indwelling Catheter: Other Urinary Catheter Date of Insertion: 03/25/24 Urinary Catheter Time of Insertion: 17:50 Data 03/29/24 05:42 03/29/24 05:42 Micro: Microbiology 03/27/24 23:50 Urine Culture - Preliminary Urine,Clean Catch Gram Negative Rods A&P Assessment and plan (1) History of type 2 diabetes mellitus: (2) History of hypothyroidism: (3) Hyponatremia: (4) Parkinsons: (5) ALYCIA (acute kidney injury): Plan Intractable nausea and vomiting Oral intake remains very poor, unsafe for discharge Antiemetics as needed Analgesics as needed Monitor intake Treat underlying infection Acute kidney injury Renal function has improved, however she has poor oral intake Repeat labs in a.m. Acute complicated urinary tract infection Follow urine culture Start ceftriaxone Type 2 diabetes melitis, uncontrolled with hyperglycemia Suspected underlying gastroparesis Continue current dose of Lantus Sliding-scale correction Hypertension Continue metoprolol Continue Norvasc Parkinsons Continue Sinemet Hypothyroidism Continue Synthroid History of compression fractures Analgesics as needed Debility and physical deconditioning Therapy evaluating Plan for home health at discharge Hypotension hypovolemic, resolved DVT prophylaxis: SCD Attestations 2 Medical Necessity Statement*: Patient with persistent intractable nausea and vomiting, unsafe for discharge and current condition. She requires ongoing care for IV antibiotics, monitoring of electrolytes, additional IV fluids, and supportive care. Coding Level of Care Code Acute Code for Chg Fwd Diagnoses History of type 2 diabetes mellitus Z86.39 History of hypothyroidism Z86.39 Hyponatremia E87.1 Parkinsons G20.A1 ALYCIA (acute kidney injury) N17.9
--- NOTE | 2024-03-29 18:29 | PC.NURSE ---
Notified daughter, Maya, of no discharge today. Verbalizes understanding.
[2024-03-29] MEDS: acetaminophen 500 mg Tablet PO (19:18)
[2024-03-29 20:22] LABS: Glucose Point of Care 204 mg/dL (70-110)
[2024-03-29] MEDS: insulin glargine 100 units/1 mL 10 UNIT SUBCUT (20:34)
[2024-03-29] MEDS: OLANZapine 10 mg TABLET PO (20:35)
[2024-03-30] VITALS (10 sets, daily range): BP systolic 117–160; BP diastolic 63–80; PULSE 70–86; RESP 16–19; TEMP 36.4–37; O2SAT 92–97
[2024-03-30 04:38] LABS: Alanine Aminotransferase < 5 U/L (0-33); Albumin Level 3.2 g/dL (3.5-5.2); Alkaline Phosphatase 100 U/L (35-105); Anion Gap 16.2 (5-19); Aspartate Amino Transferase 16 U/L (0-32); Blood Urea Nitrogen 14 mg/dL (8-23); Calcium 9.5 mg/dL (8.5-10.5); Carbon Dioxide 25 mmol/L (22-29); Chloride 101 mmol/L (98-107); Globulin 3.2 g/dL (1.3-4.6); Glucose 168 mg/dL (65-115); Magnesium 1.4 mg/dL (1.7-2.3); Osmolality Calculated 290 mOsm/kg (285-295); Potassium 4.2 mmol/L (3.5-5.1); Sodium 138 mmol/L (136-145); Total Bilirubin 0.3 mg/dL (0.15-1.2); Total Protein 6.4 g/dL (6.6-8.7)
[2024-03-30] MEDS: levothyroxine 88 mcg Tablet PO (05:01)
[2024-03-30 06:15] LABS: Glucose Point of Care 219 mg/dL (70-110)
[2024-03-30] MEDS: metoprolol tartrate 25 mg Tablet 12.5 MG PO ×2 (08:35→20:56)
[2024-03-30] MEDS: sennosides-docusate Tablet 1 TAB PO (08:35)
[2024-03-30] MEDS: insulin lispro 100 unit/1 mL SUBCUT ×3 (08:35→18:09)
[2024-03-30] MEDS: amlodipine 10 mg Tablet PO (08:35)
[2024-03-30] MEDS: pantoprazole 40 mg SDV IVP ×2 (08:36→18:09)
[2024-03-30] MEDS: carbidopa-levodopa 25-100mg Tablet 1 EACH PO ×3 (08:36→20:57)
[2024-03-30 10:48] LABS: Glucose Point of Care 218 mg/dL (70-110)
[2024-03-30] MEDS: morphine 4 mg/mL SDV 1 mL 1 MG IVP ×3 (13:41→23:09)
[2024-03-30] MEDS: cefTRIAXone 1,000 mg SDV 1000 MG IVP (13:41)
--- NOTE | 2024-03-30 15:29 | PC.NURSE ---
med delay d/t waiting for iv placement
--- NOTE | 2024-03-30 16:07 | P.PN_ITS ---
Subjective 2 Subjective: Patient reports continued suprapubic pain. She rates 10 out of 10. Reports the pain meds help. She reports she was able to eat part of a sandwich yesterday. She reports extremely poor oral intake today. She does endorse nausea. Her daughter is bedside. She does endorse a long history of GI pathology with the patient. We discussed her urine culture revealed ESBL E. coli for which antibiotics are being changed today for appropriate coverage. Daughter does inquire about the gastric emptying study. Discussed this is usually done as outpatient. Daughter requested that I call her son, Александр who is reportedly a ER resident in [place]. Attempted to call however phone goes to [employer]. Medications: Reviewed: Yes Vitals/I&O/Wt Last Vital Signs Temp 97.8 F 03/30/24 15:19 Pulse 83 03/30/24 15:19 Resp 18 03/30/24 15:19 BP 130/69 03/30/24 15:19 Pulse Ox 94 03/30/24 15:19 O2 Del Method Room Air 03/30/24 15:19 O2 Flow Rate 2 03/27/24 04:00 03/30/24 03/30/24 03/30/24 06:59 14:59 22:59 Intake Total 240 / 240 Output Total 850 / 850 Balance 240 / 240 -850 / -610 Weight last 48 hrs Weight 103.464 kg Weight 104.19 kg Physical Exam 2 Narrative: General: Patient is awake. Pleasant but appears uncomfortable. Head: Normocephalic. Atraumatic. EOM intact. Neck: No JVD. Cardiovascular: RRR. No gallops. No murmurs. Bilateral lower extremity edema. Lungs: Clear to auscultation, no use of accessory muscles, no crackles or wheezes. Skin: No jaundice. No rashes. Abdomen: Normal bowel sounds. Tender to palpation bilateral lower quadrants, similar to yesterday's exam. No guarding. Genito Urinary: Edwards catheter. Rectal: Rectal exam not performed since no symptoms indicated blood loss. Extremities: No cyanosis or clubbing. Musculoskeletal: No swollen or erythematous joints. Neurological: Moves all 4 extremities. No myoclonus. Urinary Catheter Management: Edwards: Cath Placed During This Visit: yes Reason for Continuing Indwelling Catheter: Acute Urinary Retention or Obstruction Urinary Catheter Date of Insertion: 03/25/24 Urinary Catheter Time of Insertion: 17:50 Data 03/29/24 05:42 03/30/24 03:41 Micro: Microbiology 03/27/24 23:50 Urine Culture - Final Urine,Clean Catch Escherichia coli esbl A&P Assessment and plan (1) History of type 2 diabetes mellitus: (2) History of hypothyroidism: (3) Hyponatremia: (4) Parkinsons: (5) ALYCIA (acute kidney injury): Plan Intractable nausea and vomiting -Oral intake remains very poor, unsafe for discharge -Antiemetics as needed -Analgesics as needed -Monitor intake -Treat underlying infection, antibiotics rotated based on culture and sensitivity Acute kidney injury -Renal function has improved, however she has poor oral intake -Continue IV fluids -Repeat labs in a.m. Acute complicatedESBL E. coli urinary tract infection -Discontinue ceftriaxone -Start Zosyn Type 2 diabetes melitis, uncontrolled with hyperglycemia Suspected underlying gastroparesis -Continue current dose of Lantus -Consider discharging on new insulin -Sliding-scale correction -Patient would benefit from a gastric emptying study, typically done as an outpatient evaluation Hypertension -Continue metoprolol -Continue Norvasc Parkinsons features -Continue Sinemet Hypothyroidism -Continue Synthroid History of compression fractures -Analgesics as needed Debility and physical deconditioning -Encourage out of bed to chair -Plan for home health at discharge Hypotension hypovolemic, resolved DVT prophylaxis: SCD Attestations 2 Medical Necessity Statement*: Patient requires ongoing hospitalization as she is not tolerating oral intake requiring IV fluid hydration, IV antibiotics for ESBL E. coli, and supportive care. Coding Level of Care Code Acute Code for Chg Fwd Diagnoses History of type 2 diabetes mellitus Z86.39 History of hypothyroidism Z86.39 Hyponatremia E87.1 Parkinsons G20.A1 ALYCIA (acute kidney injury) N17.9
[2024-03-30 16:34] LABS: Glucose Point of Care 195 mg/dL (70-110)
[2024-03-30] MEDS: magnesium sulfate premix 2 GM/50 ML PIGGYBACK IV (18:10)
[2024-03-30] MEDS: piperacillin-tazobactam 3.375 GM in sodium chloride 0.9% (plus) 50 ML IV (20:55)
[2024-03-30] MEDS: insulin glargine 100 units/1 mL 10 UNIT SUBCUT (20:56)
[2024-03-30] MEDS: OLANZapine 10 mg TABLET PO (20:57)
[2024-03-30 21:03] LABS: Glucose Point of Care 183 mg/dL (70-110)
[2024-03-31] VITALS (11 sets, daily range): BP systolic 119–154; BP diastolic 62–79; PULSE 70–82; RESP 16–18; TEMP 36.7–36.9; O2SAT 93–96
[2024-03-31] MEDS: magnesium sulfate premix 1 GM/100 ML PIGGYBACK IV (02:27)
[2024-03-31] MEDS: morphine 4 mg/mL SDV 1 mL 1 MG IVP ×3 (03:20→20:53)
[2024-03-31] MEDS: piperacillin-tazobactam 3.375 GM in sodium chloride 0.9% (plus) 50 ML IV ×3 (05:20→20:53)
[2024-03-31] MEDS: levothyroxine 88 mcg Tablet PO (05:25)
[2024-03-31 05:41] LABS: Albumin Level 3.2 g/dL (3.5-5.2); Blood Urea Nitrogen 15 mg/dL (8-23); Calcium 9.7 mg/dL (8.5-10.5); Carbon Dioxide 23 mmol/L (22-29); Chloride 96 mmol/L (98-107); Creatinine Clr Calc Pharmacy 52.7462; Glucose 266 mg/dL (65-115); Phosphorus 3.5 mg/dL (2.5-4.5); Sodium 132 mmol/L (136-145)
[2024-03-31 05:44] LABS: Anion Gap 17.6 (5-19); Potassium 4.6 mmol/L (3.5-5.1)
[2024-03-31 06:25] LABS: Glucose Point of Care 284 mg/dL (70-110)
[2024-03-31] MEDS: metoprolol tartrate 25 mg Tablet 12.5 MG PO ×2 (08:02→20:53)
[2024-03-31] MEDS: carbidopa-levodopa 25-100mg Tablet 1 EACH PO ×3 (08:02→20:54)
[2024-03-31] MEDS: sennosides-docusate Tablet 1 TAB PO (08:02)
[2024-03-31] MEDS: amlodipine 10 mg Tablet PO (08:02)
[2024-03-31] MEDS: pantoprazole 40 mg SDV IVP ×2 (08:03→18:00)
[2024-03-31] MEDS: insulin lispro 100 unit/1 mL SUBCUT ×3 (08:03→18:20)
--- NOTE | 2024-03-31 10:04 | PC.SOCIAL ---
IMM Update pg 2 of IMM Updated and reviewed w/ patient. Copy provided and copy dated, initialed and placed in chart.
--- NOTE | 2024-03-31 10:07 | PICC.NOTE ---
Midline placed to left basilic vein. Referred to vascular access nurse for Midline placement for 14 days IV antibiotics. Risks and benefits discussed and informed consent obtained from pt. Left arm assessed with left basilic vein measuring 3.5 mm, straight, and apparent best choice for placement. Using sterile technique and MST, left basilic vein accessed x 1 stick. Mid-arm circumference measured 10 cm from left AC 42 cm. Trimmed cath 14 cm with 0 cm external length noted. Line secured with stat-lock. Insertion site covered with Biopatch and TSM. Report given to bedside nurse, NOELLE Wolfe.
[2024-03-31 11:36] LABS: Magnesium 1.8 mg/dL (1.7-2.3)
[2024-03-31 11:39] LABS: Glucose Point of Care 176 mg/dL (70-110)
--- NOTE | 2024-03-31 12:14 | P.PN_ITS ---
Subjective 2 Subjective: Requested midline for 2 weeks of antibiotics for ESBL UTI Patient endorsing feeling better in terms of her nausea Will request orthostatics as well PT reported dizziness with low blood pressure this morning Patient is tolerating her diet No active vomiting, last bowel movement was yesterday Not endorsing dysuria and voiding urine Vitals/I&O/Wt Last Vital Signs Temp 98.2 F 03/31/24 11:27 Pulse 70 03/31/24 11:27 Resp 17 03/31/24 11:27 BP 119/70 03/31/24 11:27 Pulse Ox 96 03/31/24 11:27 O2 Del Method Nasal Cannula 03/31/24 11:27 O2 Flow Rate 2 03/31/24 11:27 03/30/24 03/31/24 03/31/24 22:59 06:59 14:59 Intake Total 290 / 530 150 / 680 170 / 170 Output Total 850 / 850 400 / 1250 Balance -560 / -320 -250 / -570 170 / 170 Weight last 48 hrs Weight 103.561 kg Weight 103.464 kg Physical Exam 2 Narrative: Patient is laying supine Not complaining of active nausea or pain Stating that she has improved a little bit Hemodynamically stable currently on 2 L nasal cannula Pleasant cooperative Looks slightly dehydrated Abdomen is soft No audible stridor or wheezing Nonfocal neuroexam Urinary Catheter Management: Edwards: Cath Placed During This Visit: yes Reason for Continuing Indwelling Catheter: Acute Urinary Retention or Obstruction Urinary Catheter Date of Insertion: 03/25/24 Urinary Catheter Time of Insertion: 17:50 Data 03/29/24 05:42 03/31/24 04:49 Micro: Microbiology 03/25/24 17:14 Blood Culture - Final Blood NO GROWTH AFTER 5 DAYS 03/25/24 17:00 Blood Culture - Final Blood NO GROWTH AFTER 5 DAYS 03/27/24 23:50 Urine Culture - Final Urine,Clean Catch Escherichia coli esbl A&P Assessment and plan (1) History of type 2 diabetes mellitus: (2) History of hypothyroidism: (3) Hyponatremia: (4) Parkinsons: (5) ALYCIA (acute kidney injury): Plan Intractable nausea and vomiting No active complaint No vomiting in the hospital Diabetic gastroparesis? Patient's last bowel movement was yesterday Uncontrolled diabetes Patient will need insulin at discharge Resting tremors, continue Sinemet ESBL UTI: Patient will need 2 weeks of IV antibiotics at the time of discharge ALYCIA: Improved Full code Consistent carb diet Patient is currently normotensive continue metoprolol and amlodipine Will request orthostatic vitals today dizziness reported during PT eval Attestations 2 Medical Necessity Statement*: Continue medical management We will discharge once were able to set up nurse visit for IV antibiotics at home Diagnoses History of type 2 diabetes mellitus Z86.39 History of hypothyroidism Z86.39 Hyponatremia E87.1 Parkinsons G20.A1 ALYCIA (acute kidney injury) N17.9
[2024-03-31 20:16] LABS: Glucose Point of Care 210 mg/dL (70-110)
[2024-03-31] MEDS: insulin glargine 100 units/1 mL 10 UNIT SUBCUT (20:52)
[2024-03-31] MEDS: OLANZapine 10 mg TABLET PO (20:54)
[2024-03-31 21:02] LABS: Glucose Point of Care 249 mg/dL (70-110)
[2024-04-01] VITALS (8 sets, daily range): BP systolic 119–156; BP diastolic 56–73; PULSE 76–86; RESP 16–18; TEMP 36.5–37; O2SAT 90–94
[2024-04-01] MEDS: morphine 4 mg/mL SDV 1 mL 1 MG IVP ×2 (01:01→04:10)
[2024-04-01] MEDS: ondansetron 2 mg/ML SDV 2 mL 4 MG IVP (03:11)
[2024-04-01 04:58] LABS: Basophils % 0.2 %; Eosinophils # 0.3 10^3/uL (0.0-0.8); Eosinophils % 5.4 %; Hematocrit 33.9 % (36-47); Lymphocytes # 1.5 10^3/uL (0.8-4.8); Lymphocytes % 26.9 %; Mean Corpuscular Hemoglobin 31.5 pg (27-33); Mean Corpuscular Volume 95.5 fl (85-98); Monocytes # 0.5 10^3/uL (0.2-0.9); Monocytes % 8.7 %; Neutrophils # 3.14 10^3/uL (1.8-7.7); Neutrophils % 58.2 %; Nucleated Red Blood Cells % 0 %; Platelet Count 189 10^3/cmm (157-399); Red Blood Count 3.55 10^6/uL (3.85-5.65); Red Cell Distribution Width 13.3 % (12.1-15.1); White Blood Count 5.39 10^3/uL (3.29-11.43)
[2024-04-01 05:18] LABS: Anion Gap 13.5 (5-19); Blood Urea Nitrogen 16 mg/dL (8-23); Calcium 9.4 mg/dL (8.5-10.5); Carbon Dioxide 26 mmol/L (22-29); Chloride 100 mmol/L (98-107); Creatinine Clr Calc Pharmacy 47.8192; Glucose 213 mg/dL (65-115); Osmolality Calculated 288 mOsm/kg (285-295); Potassium 4.5 mmol/L (3.5-5.1); Sodium 135 mmol/L (136-145)
[2024-04-01] MEDS: piperacillin-tazobactam 3.375 GM in sodium chloride 0.9% (plus) 50 ML IV (05:19)
[2024-04-01] MEDS: levothyroxine 88 mcg Tablet PO (05:20)
[2024-04-01 06:31] LABS: Glucose Point of Care 219 mg/dL (70-110)
[2024-04-01] MEDS: sennosides-docusate Tablet 1 TAB PO (09:51)
[2024-04-01] MEDS: amlodipine 10 mg Tablet PO (09:51)
[2024-04-01] MEDS: carbidopa-levodopa 25-100mg Tablet 1 EACH PO (09:51)
[2024-04-01] MEDS: pantoprazole 40 mg SDV IVP (09:51)
[2024-04-01] MEDS: insulin lispro 100 unit/1 mL SUBCUT ×2 (09:51→12:31)
[2024-04-01] MEDS: metoprolol tartrate 25 mg Tablet 12.5 MG PO (09:52)
--- NOTE | 2024-04-01 10:32 | PM.DCS ---
Discharge Providers Date of Admission: 03/26/24 11:27 Date of Discharge: April 01, 2024 Attending Provider at Admission: Mike Raygoza MD Attending Provider at Discharge: Mike Raygoza MD Primary Care Provider: SHAUN Umana Diagnoses at Discharge Discharge Diagnosis (1) History of type 2 diabetes mellitus: Status: Acute (2) History of hypothyroidism: Status: Acute (3) Hyponatremia: Status: Acute (4) Parkinsons: Status: Acute (5) ALYCIA (acute kidney injury): Status: Acute Reason for Visit Reason for Visit: Blood sugar over 400, can't urinate Hospital Course Hospital Course 84-year-old female who was admitted in the hospital in July for symptoms related to GI, patient went for EGD which showed gastritis, biopsy did not show any malignancy or H. pylori, she was also treated for partial SBO which improved with conservative management, she was put on p.o. vancomycin for C. difficile as well. She presented back with chief complaint of recurrent nausea vomiting. She was concerned that she had another bowel obstruction however CT abdomen pelvis was unremarkable. We requested nuclear emptying study to rule out gastroparesis patient could not tolerate oral diet, she started gagging, study was discontinued, we repeated abdominal scan which did not show any pathological changes, patient kept complaining of nausea, she is having regular bowel movement no signs of diarrhea. She is eating diet but complains of nausea most of the time. She never vomiting during hospitalization. I did tell the patient and her daughter that my suspicion is related to diabetic gastroparesis because patient is only taking Januvia and her hemoglobin A1c is around 10, daughter was concerned about blood sugars staying consistently above 200 at home, she will need insulin for better control of blood sugar, patient and daughter both counseled on keeping an eye on blood sugar and not skipping any meals after taking insulin. Patient has ESBL UTI for which she will get 2 weeks of antibiotics, I will follow-up with her CBC and CMP on weekly basis for next 2 weeks. Patient and daughter both got very upset when I mentioned long-term placement, they are completely against nursing homes and do not even want to discuss that option, she will go home on home health services I have counseled patient to eat small but frequently. Her symptoms could be related to SIBO for which I will put her on metronidazole as well Physical Exam Narrative: Awake and alert Eating breakfast GCS 15 Nonfocal neuroexam complaining of nausea Currently on room air Urinary Catheter Management: Edwards: Cath Placed During This Visit: yes Reason for Continuing Indwelling Catheter: Acute Urinary Retention or Obstruction Urinary Catheter Date of Insertion: 03/25/24 Urinary Catheter Time of Insertion: 17:50 Discharge Data Studies Completed and Pending Completed Studies During Hospitalization Category Date Time Status CT abdomen pelvis wo con [id number] Stat Cat Scan 03/25/24 15:[address] abdomen pelvis wo con [id number] Stat Cat Scan 03/27/24 09:[address] head wo con* [id number] Stat Cat Scan 03/27/24 23:48 Completed XR KUB portable [id number] Routine Exams 03/26/24 08:31 Completed XR chest 1V portable [id number] Stat Exams 03/25/24 14:13 Completed US abdomen complete* [id number] Routine Ultrasound 03/29/24 13:55 Completed Pending at discharge Category Date Time Status CDIFF [C.Diff PCR (Lab)] Routine Lab 03/27/24 11:16 Uncollected Radiology Impressions Chest X-Ray 03/25/24 14:13 IMPRESSION: The heart is prominent in size with findings to suggest pulmonary venous hypertension. KUB X-Ray 03/26/24 08:31 Impression: Nonspecific appearance of the KUB. Abdomen/Pelvis CT 03/27/24 09:03 IMPRESSION: 1. No acute abdominal or pelvic abnormalities. 2. No colitis or GI tract obstruction. 3. Prior cholecystectomy and hysterectomy. 4. No renal obstruction. Head CT 03/27/24 23:48 IMPRESSION: No large territorial infarct or intracranial bleed. Abdomen Ultrasound 03/29/24 13:55 IMPRESSION: 1. Liver is mildly heterogeneous. Please reference CT dated 03-27-24. 2. Prior cholecystectomy. Laboratory Results WBC 5.39 10^3/uL (3.29-11.43) 04/01/24 04:38 RBC 3.55 10^6/uL (3.85-5.65) L 04/01/24 04:38 Hgb 11.20 g/dL (11.27-16.99) L 04/01/24 04:38 Hct 33.9 % (36-47) L 04/01/24 04:38 MCV 95.5 fl (85-98) 04/01/24 04:38 MCH 31.5 pg (27-33) 04/01/24 04:38 MCHC 33.0 g/dL (30-55) 04/01/24 04:38 RDW 13.3 % (12.1-15.1) 04/01/24 04:38 Plt Count 189 10^3/cmm (157-399) 04/01/24 04:38 MPV 10.0 fL (7.4-10.4) 04/01/24 04:38 Neut % (Auto) 58.2 % 04/01/24 04:38 Lymph % (Auto) 26.9 % 04/01/24 04:38 [place] % (Auto) 8.7 % 04/01/24 04:38 Eos % (Auto) 5.4 % 04/01/24 04:38 Baso % (Auto) 0.2 % 04/01/24 04:38 Neut # (Auto) 3.14 10^3/uL (1.8-7.7) 04/01/24 04:38 Lymph # (Auto) 1.5 10^3/uL (0.8-4.8) 04/01/24 04:38 [place] # (Auto) 0.5 10^3/uL (0.2-0.9) 04/01/24 04:38 Eos # (Auto) 0.3 10^3/uL (0.0-0.8) 04/01/24 04:38 Baso # (Auto) 0.0 10^3/uL (0.0-0.1) 04/01/24 04:38 Nucleated RBC % (auto) 0 % 04/01/24 04:38 Nucleated RBCs # 0.0 /100WBC 04/01/24 04:38 Sodium 135 mmol/L (136-145) L 04/01/24 04:38 Potassium 4.5 mmol/L (3.5-5.1) 04/01/24 04:38 Chloride 100 mmol/L (98-107) 04/01/24 04:38 Carbon Dioxide 26 mmol/L (22-29) 04/01/24 04:38 Anion Gap 13.5 (5-19) 04/01/24 04:38 BUN 16 mg/dL (8-23) 04/01/24 04:38 Creatinine 1.1 mg/dL (0.5-0.9) H 04/01/24 04:38 GFR Calculation Not Reportable 04/01/24 04:38 Glucose 213 mg/dL (65-115) H 04/01/24 04:38 POC Glucose 219 mg/dL (70-110) H 04/01/24 06:28 Estimat Average Glucose 246 03/26/24 04:58 Hemoglobin A1c 10.2 % (4.0-6.0) H 03/26/24 04:58 Calculated Osmolality 288 mOsm/kg (285-295) 04/01/24 04:38 Lactic Acid 1.6 mmol/L (0.5-2.2) 03/25/24 14:18 Calcium 9.4 mg/dL (8.5-10.5) 04/01/24 04:38 Phosphorus 3.5 mg/dL (2.5-4.5) 03/31/24 04:49 Magnesium 1.8 mg/dL (1.7-2.3) 03/31/24 11:08 Total Bilirubin 0.3 mg/dL (0.15-1.2) 03/30/24 03:41 AST 16 U/L (0-32) 03/30/24 03:41 ALT < 5 U/L (0-33) 03/30/24 03:41 Alkaline Phosphatase 100 U/L (35-105) 03/30/24 03:41 Creatine Kinase 66 U/L (26-192) 03/25/24 14:18 Troponin T 5th Gen ng/L 14 ng/L (0-10) H 03/25/24 23:28 Troponin T Baseline 12 ng/L (0-10) H 03/25/24 14:18 Troponin T 120 Minute 10.74 ng/L (0-10) H 03/25/24 17:30 Delta Troponin T -1.26 ABS# (0-10) L 03/25/24 17:30 Troponin T Hi Sens 6Hr 13.43 ng/L (0-10) H 03/25/24 20:57 Troponin T Hi Sens 6Hr Delta 1.43 ng/L (0-12) 03/25/24 20:57 NT-Pro-B Natriuret Pep 935 pg/mL (0-450) H 03/25/24 14:18 Total Protein 6.4 g/dL (6.6-8.7) L 03/30/24 03:41 Albumin 3.2 g/dL (3.5-5.2) L 03/31/24 04:49 Globulin 3.2 g/dL (1.3-4.6) 03/30/24 03:41 Lipase 31 U/L (13-60) 03/25/24 14:18 Urine Color Yellow (Yellow) 03/27/24 23:50 Urine Appearance Cloudy (CLEAR) A 03/27/24 23:50 Urine pH 5.5 (5-7) 03/27/24 23:50 Ur Specific [place] 1.015 (1.005-1.030) 03/27/24 23:50 Urine Protein 1+ (Negative) A 03/27/24 23:50 Urine Glucose (UA) Negative (Normal) 03/27/24 23:50 Urine Ketones 1+ (Negative) H 03/27/24 23:50 Urine Blood Negative (Negative) 03/27/24 23:50 Urine Nitrate Negative (Negative) 03/27/24 23:50 Urine Bilirubin Negative (Negative) 03/27/24 23:50 Urine Urobilinogen 1.0 mg/dL (Negative) 03/27/24 23:50 Ur Leukocyte Esterase 2+ (Negative) A 03/27/24 23:50 Urine RBC 0-4 /hpf (0-2) H 03/27/24 23:50 Urine WBC 15-25 /hpf (0-5) H 03/27/24 23:50 Ur Squamous Epith Cells 0-4 /hpf (0-5) H 03/27/24 23:50 Amorphous Sediment Not Reportable 03/27/24 23:50 Urine Bacteria 4+ /hpf (NONE) H 03/27/24 23:50 Urine Mucus 1+ /hpf 03/27/24 23:50 Urine Yeast 1+ /hpf H 03/27/24 23:50 Serum Ketones Negative (Negative) 03/25/24 17:30 Coronavirus 229E (PCR) Not detected (NOT DETECT) 03/25/24 19:23 SARS-CoV-2 (PCR) Not detected (NOT DETECT) 03/25/24 19:23 Vitals Last Vital Signs Temp 97.7 F 04/01/24 08:21 Pulse 86 04/01/24 08:21 Resp 17 04/01/24 08:21 BP 143/56 04/01/24 08:21 Pulse Ox 90 04/01/24 08:21 O2 Del Method Room Air 04/01/24 08:21 O2 Flow Rate 2 03/31/24 11:27 Discharge Plan Discharge Patient Disposition: Home Health Service Condition: Stable Prescriptions: New ertapenem 1 gram recon soln 1 g IV DAILY 10 Days Qty: 10 0RF ondansetron 4 mg tablet,disintegrating 4 mg PO DAILY PRN (Reason: nausea and vomiting) Qty: 14 0RF Continued amlodipine 5 mg tablet 5 mg PO QAM cholecalciferol (vitamin D3) 75 mcg (3,000 unit) tablet 6,000 unit PO DAILY (DME) FAST FORM COCK UP SPLINT See Rx Instructions .Route .MEDSUPPLY Qty: 1 0RF Rx Instructions: As directed carbamazepine 200 mg tablet 200 mg PO BID Qty: 60 11RF levothyroxine [Synthroid] 88 mcg tablet 88 mcg PO QAM citalopram 20 mg tablet 20 mg PO QAM multivitamin Tablet 1 tab PO DAILY gabapentin 100 mg Capsule 100 mg PO TID PRN (Reason: unknown) Vitamin B-12 1,000 mcg/mL Drops 1 ml PO DAILY cetirizine 10 mg tablet 10 mg PO DAILY Januvia 50 mg tablet 50 mg PO QAM buspirone 5 mg tablet 5 mg PO BID spironolactone 25 mg tablet 25 mg PO DAILY Milk of Magnesia 400 mg/5 mL Suspension 15 ml PO BEDTIME omeprazole 20 mg capsule,delayed release(DR/EC) 20 mg PO DAILY ondansetron 4 mg tablet,disintegrating 4 mg PO Q8H PRN (Reason: Nausea) melatonin 10 mg Tablet 10 mg PO BEDTIME Fiber Gummies 2 gram Tablet,Chewable 2 g PO BEDTIME Held furosemide [Lasix] 20 mg Tablet 20 mg PO QAM Hold Instructions: Resume on 09/02/23. potassium chloride 20 mEq tablet,ER particles/crystals 20 meq PO DAILY Hold Instructions: Resume on 04/15/24. Discontinued olanzapine 10 mg tablet 10 mg PO BEDTIME olanzapine 5 mg tablet 5 mg PO QAM metoprolol tartrate 25 mg tablet 25 mg PO BID rosuvastatin 40 mg tablet 40 mg PO BEDTIME amoxicillin 875 mg tablet 875 mg PO BID Discharge Orders: Discharge Order (Routine); Ordered 04/01/24 Ordered By: Mike Raygoza Referrals: Claude Rico FNP [Primary Care Provider] - 7-10 days (We have notified your physician's clinic of the need for a follow-up appointment to be scheduled. If you have not heard from them within the next 2 business days, please call them directly. ) [facility],. [Staff Physician] - Discharge Diet: Diabetic Patient Instructions: Opioid Safety Activity Restrictions/Additional Instructions: Nausea is likely related to diabetic gastroparesis treatment is eat small but frequent meals. You have type 2 diabetes you will need insulin it means you cannot skip your meals which can cause low blood sugar tach which are detrimental Please make sure whenever you take insulin you do not skip a meal Finish your 12 more days on IV antibiotics. For nausea I will give you Zofran for now, avoid Reglan because of your tremors Discharge Attestations Time Spent in Discharge Care*: greater than 30 min Quality Metrics Clinical Quality Measures [ No reported AMI, CVA or VTE this stay] Coding Level of Care Code Acute Code for Chg Fwd Diagnoses History of type 2 diabetes mellitus Z86.39 History of hypothyroidism Z86.39 Hyponatremia E87.1 Parkinsons G20.A1 ALYCIA (acute kidney injury) N17.9
[2024-04-01 11:17] LABS: Glucose Point of Care 328 mg/dL (70-110)
[2024-04-01] MEDS: ertapenem 1,000 MG in sodium chloride 0.9% (plus) 100 ML 200 MG IV (12:31)
[2024-04-01] MEDS: acetaminophen 500 mg Tablet PO (12:32)
== END 2024-04-01 15:04 | disposition home health service (06) | DRG 641 ==
LOC: ER 14:51 → ICU 17:30 → MEDSURG 03-26 14:42
PROVIDERS: Emergency Medicine; Family Medicine; Internal Medicine; Admitting Provider Internal Medicine; Emergency Provider Family Medicine; PCP Nurse Practitioner; Visit Provider Internal Medicine
DX: E87.1 Hypo-osmolality and hyponatremia (principal); N17.9 Acute kidney failure, unspecified; I50.32 Chronic diastolic (congestive) heart failure; N39.0 Urinary tract infection, site not specified; Z16.12 Extended spectrum beta lactamase (ESBL) resistance; G20.A1 Parkinson's disease without dyskinesia, without mention of fluctuations; E11.65 Type 2 diabetes mellitus with hyperglycemia; I11.0 Hypertensive heart disease with heart failure; E11.43 Type 2 diabetes mellitus with diabetic autonomic (poly)neuropathy; K31.84 Gastroparesis; I95.9 Hypotension, unspecified; E03.9 Hypothyroidism, unspecified; R11.2 Nausea with vomiting, unspecified; E87.5 Hyperkalemia; M54.9 Dorsalgia, unspecified; E66.01 Morbid (severe) obesity due to excess calories; R53.81 Other malaise; R10.2 Pelvic and perineal pain; Z79.85 Long-term (current) use of injectable non-insulin antidiabetic drugs; Z68.35 Body mass index [BMI] 35.0-35.9, adult
CPT/HCPCS: 36415; 36416; 36569; 51702; 51798; 70450; 71045; 74018; 74176; 76700; 80048; 80053; 80069; 81003; 81015; 82009; 82550; 82962; 83036; 83605; 83690; 83735; 83880; 84295; 84484; 85025; 87040; 87077; 87086; 87186; 87635; 93005; 96372; 96374; 97116; 97162; 97530; 99285; C1751; G0378; J0696; J1170; J1335; J1815; J2270; J2405; J2470; J2543; J3475; J7030

== ENCOUNTER 2024-04-03 08:09 | Emergency (ER) | payer MEDICARE, SELFPAY ==
[2024-04-03 08:26] VITALS: BP 174/80; PULSE 96; RESP 20; TEMP 36.9; O2SAT 95; BMI 36.0
--- NOTE | 2024-04-03 08:39 | ED_ITS ---
HPI - General Adult 2 General: Chief complaint: General Medical Stated complaint: port issues Time Seen by Provider: 04/03/24 08:24 History of Present Illness: 86-year-old female presents emergency ro om with daughters with his complaints she is not able to flush the PICC line PICC line was placed during last hospitalization. She was discharged on 04/01. Doing home IV antibiotics. Associated symptoms: Deny chest pain, dyspnea or rash Related Data Home Medications Medication Instructions Recorded Confirmed citalopram 20 mg tablet 20 mg PO QAM 06/09/21 03/26/24 levothyroxine 88 mcg tablet 88 mcg PO QAM 06/09/21 03/26/24 (Synthroid) multivitamin 1 tab PO DAILY 06/09/21 03/26/24 amlodipine 5 mg tablet 5 mg PO QAM 08/09/21 03/26/24 cholecalciferol (vitamin D3) 75 6,000 unit PO DAILY 10/18/22 03/26/24 mcg (3,000 unit) tablet cyanocobalamin (vitamin B-12) 1 ml PO DAILY 08/08/23 03/26/24 1,000 mcg/mL oral drops (Vitamin B-12) furosemide 20 mg tablet (Lasix) 20 mg PO QAM 08/08/23 03/26/24 gabapentin 100 mg capsule 100 mg PO TID PRN unknown 08/08/23 03/26/24 buspirone 5 mg tablet 5 mg PO BID 03/26/24 03/26/24 cetirizine 10 mg tablet 10 mg PO DAILY 03/26/24 03/26/24 inulin 2 gram chewable tablet 2 g PO BEDTIME 03/26/24 03/26/24 (Fiber Gummies) magnesium hydroxide 400 mg/5 mL 15 ml PO BEDTIME 03/26/24 03/26/24 oral suspension (Milk of Magnesia) melatonin 10 mg tablet 10 mg PO BEDTIME 03/26/24 03/26/24 omeprazole 20 mg capsule,delayed 20 mg PO DAILY 03/26/24 03/26/24 release ondansetron 4 mg disintegrating 4 mg PO Q8H PRN Nausea 03/26/24 03/26/24 tablet potassium chloride 20 mEq 20 meq PO DAILY 03/26/24 03/26/24 tablet,extended release(part/cryst) sitagliptin phosphate 50 mg tablet 50 mg PO QAM 03/26/24 03/26/24 (Januvia) spironolactone 25 mg tablet 25 mg PO DAILY 03/26/24 03/26/24 Previous Rx's Medication Instructions Recorded carbamazepine 200 mg tablet 200 mg PO BID #60 tabs 09/18/22 FAST FORM COCK UP SPLINT #1 ea 10/18/22 ertapenem 1 gram solution for 1 g IV DAILY 10 days #10 ea 04/01/24 injection insulin glargine 100 unit/mL (3 10 unit (0.1 mL) SUBCUT QPM #15 mL 04/01/24 mL) subcutaneous pen (Lantus Solostar U-100 Insulin) insulin lispro 100 unit/mL See Rx Instructions .Route 04/01/24 subcutaneous pen (Humalog KwikPen .COMPLEX #15 mL (U-100) Insulin) metronidazole 500 mg tablet 500 mg PO Q8H 7 days #21 tabs 04/01/24 ondansetron 4 mg disintegrating 4 mg PO DAILY PRN nausea and 04/01/24 tablet vomiting #14 tabs ertapenem 1 gram solution for 1 g IM DAILY 5 days #5 ea 04/03/24 injection Allergies Allergy/AdvReac Type Severity Reaction Status Date / Time No Known Allergies Allergy Verified 03/25/24 13:58 Review of Systems 2 Const: Denies: fever(s) or chills Card: Denies: chest pain Resp: Denies: dyspnea GI: Denies: abdominal pain : Denies: dysuria, urinary frequency or urinary urgency Musc: Denies: neck pain or back pain Skin/Breast: Denies: rash PFSH ED 2 PFSH: Medical History Acute hyperglycemia ALYCIA (acute kidney injury) Hyponatremia Congestive heart failure Parkinsons C. difficile diarrhea Enteritis UTI (urinary tract infection) Gastritis Constipation Bilateral lower extremity edema Nausea & vomiting Abdominal pain Small bowel obstruction History of hypothyroidism History of hypertension History of type 2 diabetes mellitus Surgical History History of hysterectomy History of cholecystectomy Family History Mother CAD (coronary artery disease) Social History (Reviewed 04/03/24 @ 13:14 by RITA Corcoran Smoking and tobacco/nicotine status: never used tobacco/nicotine Alcohol intake: never Substance/Drug Use: never Physical Exam 2 Const: COMMON NORMALS: no acute distress GENERAL APPEARANCE: cooperative and comfortable ORIENTATION/CONSCIOUSNESS: Yes awake, Yes oriented to person, Yes oriented to place and Yes oriented to time HENMT: COMMON NORMALS: normocephalic, atraumatic and hearing grossly normal bilaterally HEAD & SCALP: normocephalic and atraumatic Resp: COMMON NORMALS: normal respiratory effort, No retractions, No use of accessory muscles and clear to auscultation bilaterally AUSCULTATION: clear to auscultation bilaterally Cardio: COMMON NORMALS: regular rate, regular rhythm and No murmurs present (Cardio) RATE: regular rate RHYTHM: regular rhythm GI: COMMON NORMALS: Soft to palpation and No hepatosplenomegaly present A USCULTATION: Yes normoactive bowel sounds PALPATION: Yes Soft to palpation, No Tenderness to palpation present (GI), No Guarding due to palpation present (GI) and Yes No hepatosplenomegaly present Extremity: COMMON NORMALS: normal to inspection, capillary refill normal, no clubbing, cyanosis or edema, no calf tenderness and no pedal edema Neuro: SENSORIUM/ORIENTATION: Yes oriented to person, Yes oriented to place and Yes oriented to time Skin: COMMON NORMALS: no rashes or lesions noted GENERAL SKIN EXAM: no rashes or lesions noted Course 2 Vital Signs: Vital signs: Vital Signs Temperature 98.4 F 04/03/24 08:26 Pulse Rate 91 04/03/24 11:36 Respiratory Rate 20 H 04/03/24 08:26 Blood Pressure 168/80 04/03/24 11:36 Pulse Oximetry 94 04/03/24 11:36 Oxygen Delivery Me thod Room Air 04/03/24 11:35 Oxygen Flow Rate 2 04/03/24 08:26 MDM - General Adult Medical Decision Making Patient is awake alert and oriented. The midline appears to have been retracted from the vein we could visualize it on the chest x-ray and x-ray of the hip humerus we can see if it only looks like with further small portion is still within the vein however the however is still at the skin suspect it was retracted and then reinserted on the skin. In addition to this the lumen is occluded by a piece of plastic where the IV line was directly inserted to the midline rather than inserted on the hub. When it was removed that appears plastic broke off the daughter admits that she did try to remove the plastic from the limb and the PICC line with a household needle-nose pliers. At this point have to consider that it is likely been contaminated it was removed the tip has been cultured she also had a blood culture done. White count was normal. I discussed with the PICC line team they are uncomfortable placing a PICC line since just a few days there is been quite a bit of difficulty with current [address] Jaret Avalos from the hospitalist team they are recommending we switch to ertapenem IM for the next 5 days. Patient's daughter was taught how to give the IM shots in the emergency room and Dr. Raygoza prescribed the ertapenem to the specialty pharmacy. Patient and her daughter are in agreement with this plan Medical Records I reviewed the patient's medical records. Lab Data I reviewed the patient's lab results. 04/03/24 09:40 04/03/24 09:40 Radiology Impressions Chest X-Ray 04/03/24 08:52 IMPRESSION: Pulmonary venous hypertension and possible early congestive failure versus developing pneumonitis. Humerus X-Ray 04/03/24 09:27 IMPRESSION: Venous access catheter ends in the lower left arm. Laboratory Results WBC 7.75 10^3/uL (3.29-11.43) 04/03/24 09:40 RBC 3.73 10^6/uL (3.85-5.65) L 04/03/24 09:40 Hgb 11.70 g/dL (11.27-16.99) 04/03/24 09:40 Hct 36.6 % (36-47) 04/03/24 09:40 MCV 98.1 fl (85-98) H 04/03/24 09:40 MCH 31.4 pg (27-33) 04/03/24 09:40 MCHC 32.0 g/dL (30-55) 04/03/24 09:40 RDW 13.1 % (12.1-15.1) 04/03/24 09:40 Plt Count 206 10^3/cmm (157-399) 04/03/24 09:40 MPV 10.3 fL (7.4-10.4) 04/03/24 09:40 Neut % (Auto) 76.6 % 04/03/24 09:40 Lymph % (Auto) 15.2 % 04/03/24 09:40 [place] % (Auto) 5.5 % 04/03/24 09:40 Eos % (Auto) 2.3 % 04/03/24 09:40 Baso % (Auto) 0.0 % 04/03/24 09:40 Neut # (Auto) 5.93 10^3/uL (1.8-7.7) 04/03/24 09:40 Lymph # (Auto) 1.2 10^3/uL (0.8-4.8) 04/03/24 09:40 [place] # (Auto) 0.4 10^3/uL (0.2-0.9) 04/03/24 09:40 Eos # (Auto) 0.2 10^3/uL (0.0-0.8) 04/03/24 09:40 Baso # (Auto) 0.0 10^3/uL (0.0-0.1) 04/03/24 09:40 Nucleated RBC % (auto) 0 % 04/03/24 09:40 Nucleated RBCs # 0.0 /100WBC 04/03/24 09:40 Sodium 131 mmol/L (136-145) L 04/03/24 09:40 Potassium 4.8 mmol/L (3.5-5.1) 04/03/24 09:40 Chloride 96 mmol/L (98-107) L 04/03/24 09:40 Carbon Dioxide 24 mmol/L (22-29) 04/03/24 09:40 Anion Gap 15.8 (5-19) 04/03/24 09:40 BUN 28 mg/dL (8-23) H 04/03/24 09:40 Creatinine 1.2 mg/dL (0.5-0.9) H 04/03/24 09:40 GFR Calculation Not Reportable 04/03/24 09:40 Glucose 325 mg/dL (65-115) H 04/03/24 09:40 Calculated Osmolality 290 mOsm/kg (285-295) 04/03/24 09:40 Calcium 10.2 mg/dL (8.5-10.5) 04/03/24 09:40 Total Bilirubin 0.2 mg/dL (0.15-1.2) 04/03/24 09:40 AST 9 U/L (0-32) 04/03/24 09:40 ALT 22 U/L (0-33) 04/03/24 09:40 Alkaline Phosphatase 117 U/L (35-105) H 04/03/24 09:40 Total Protein 7.2 g/dL (6.6-8.7) 04/03/24 09:40 Albumin 3.6 g/dL (3.5-5.2) 04/03/24 09:40 Globulin 3.6 g/dL (1.3-4.6) 04/03/24 09:40 All radiology interpretation(s) finalized by discharge Discharge Plan Discharge Patient Disposition: Home Clinical Impression: Urinary tract infection due to ESBL Klebsiella, Occluded PICC line Condition: Stable Prescriptions: New ertapenem 1 gram recon soln 1 g IM DAILY 5 Days Qty: 5 0RF Continued amlodipine 5 mg tablet 5 mg PO QAM cholecalciferol (vitamin D3) 75 mcg (3,000 unit) tablet 6,000 unit PO DAILY (DME) FAST FORM COCK UP SPLINT See Rx Instructions .Route .MEDSUPPLY Qty: 1 0RF Rx Instructions: As directed carbamazepine 200 mg tablet 200 mg PO BID Qty: 60 11RF levothyroxine [Synthroid] 88 mcg tablet 88 mcg PO QAM citalopram 20 mg tablet 20 mg PO QAM multivitamin Tablet 1 tab PO DAILY furosemide [Lasix] 20 mg Tablet 20 mg PO QAM Hold Instructions: Resume on 09/02/23. gabapentin 100 mg Capsule 100 mg PO TID PRN (Reason: unknown) Vitamin B-12 1,000 mcg/mL Drops 1 ml PO DAILY cetirizine 10 mg tablet 10 mg PO DAILY potassium chloride 20 mEq tablet,ER particles/crystals 20 meq PO DAILY Hold Instructions: Resume on 04/15/24. Januvia 50 mg tablet 50 mg PO QAM buspirone 5 mg tablet 5 mg PO BID spironolactone 25 mg tablet 25 mg PO DAILY Milk of Magnesia 400 mg/5 mL Suspension 15 ml PO BEDTIME omeprazole 20 mg capsule,delayed release(DR/EC) 20 mg PO DAILY ondansetron 4 mg tablet,disintegrating 4 mg PO Q8H PRN (Reason: Nausea) melatonin 10 mg Tablet 10 mg PO BEDTIME Fiber Gummies 2 gram Tablet,Chewable 2 g PO BEDTIME ondansetron 4 mg tablet,disintegrating 4 mg PO DAILY PRN (Reason: nausea and vomiting) Qty: 14 0RF ertapenem 1 gram recon soln 1 g IV DAILY 10 Days Qty: 10 0RF metronidazole 500 mg tablet 500 mg PO Q8H 7 Days Qty: 21 0RF Lantus Solostar U-100 Insulin 100 unit/mL (3 mL) insulin pen 10 unit SUBCUT QPM Qty: 15 3RF Rx Instructions: fasting BG in AM goal 70-130mg/dl Humalog KwikPen Insulin 100 unit/mL insulin pen See Rx Instructions .ROUTE .COMPLEX Qty: 15 3RF Rx Instructions: low intensity Sliding scale Discharge Orders: Discharge ED (Routine); Ordered 04/03/24 Ordered By: Pasquale Fuentes Referrals: Claude Rico, [facility] [Primary Care Provider] - Patient Instructions: Opioid Safety, Pain Management Activity Restrictions/Additional Instructions: Thank you for choosing [facility] for your healthcare needs today. It is very important that you follow up as instructed or that you return to the Emergency Department should you have concerns or if your condition changes or worsens in any way. You were seen today for complication of the PICC line. PICC line is malpositioned and the port has been followed for the broken portion of the IV line. It was removed and cultures were done on the tip as well as blood cultures today. White count done today was normal. I reviewed with the hospitalist that you had seen previously. We recommend that you change your treatment for the bladder infection to ertapenem 1 shot daily for 5 more days. Return if you have a fever or worsening condition. Be antibiotics have been sent to the [facility] outpatient pharmacy. The nurse demonstrated how to perform the intramuscular injections while in the emergency room. Coding Level of Care Code ED Manager Community Relations for Nilay Lopez
--- NOTE | 2024-04-03 08:52 | XR_ITS ---
WS: [id number] XR chest 1V portable [id number] REASON FOR EXAM: Assessment of PICC line FINDINGS: The heart is at the upper limits of normal in size. Central pulmonary arteries and pulmonary veins are prominent. There are presumed chronic reticular in terstitial changes in the lower lung mckeon. Compared to the examination of 03/25/2024 there may be developing groundglass opacities in the medial r ight lower lung. XR/XR chest 1V portable [id number] IMPRESSION: Pulmonary venous hypertension and possible early congestive failure versus deve loping pneumonitis.
--- NOTE | 2024-04-03 09:27 | XR_ITS ---
WS: [email or web address] [place] [id number] REASON FOR EXAM: Evaluate position of midline FINDINGS: Presumed venous catheter entering near the antecubital space. The line terminates in the distal third of the upper left arm. Recent chest x-rays were reevaluated with different windowing techniques to attempt to identify displ aced catheter fragment. Great deal of overlying artifact with calcification in the trachea and aortic arch. No catheter fragment identified. XR/[place] [id number] IMPRESSION: Venous access catheter ends in the lower left arm.
[2024-04-03 09:55] LABS: Eosinophils # 0.2 10^3/uL (0.0-0.8); Eosinophils % 2.3 %; Hematocrit 36.6 % (36-47); Lymphocytes # 1.2 10^3/uL (0.8-4.8); Lymphocytes % 15.2 %; Mean Corpuscular Hemoglobin 31.4 pg (27-33); Mean Corpuscular Volume 98.1 fl (85-98); Mean Platelet Volume 10.3 fL (7.4-10.4); Monocytes # 0.4 10^3/uL (0.2-0.9); Monocytes % 5.5 %; Neutrophils # 5.93 10^3/uL (1.8-7.7); Neutrophils % 76.6 %; Nucleated Red Blood Cells % 0 %; Platelet Count 206 10^3/cmm (157-399); Red Blood Count 3.73 10^6/uL (3.85-5.65); Red Cell Distribution Width 13.1 % (12.1-15.1); White Blood Count 7.75 10^3/uL (3.29-11.43)
[2024-04-03 10:11] LABS: Alanine Aminotransferase 22 U/L (0-33); Albumin Level 3.6 g/dL (3.5-5.2); Alkaline Phosphatase 117 U/L (35-105); Anion Gap 15.8 (5-19); Aspartate Amino Transferase 9 U/L (0-32); Blood Urea Nitrogen 28 mg/dL (8-23); Calcium 10.2 mg/dL (8.5-10.5); Carbon Dioxide 24 mmol/L (22-29); Chloride 96 mmol/L (98-107); Creatinine Clr Calc Pharmacy 44.1267; Globulin 3.6 g/dL (1.3-4.6); Glucose 325 mg/dL (65-115); Osmolality Calculated 290 mOsm/kg (285-295); Potassium 4.8 mmol/L (3.5-5.1); Sodium 131 mmol/L (136-145); Total Bilirubin 0.2 mg/dL (0.15-1.2); Total Protein 7.2 g/dL (6.6-8.7)
[2024-04-03 11:35] VITALS: BP 168/80; PULSE 91; O2SAT 94
[2024-04-03 11:36] VITALS: BP 168/80; PULSE 91; O2SAT 94
== END 2024-04-03 11:41 | disposition home or self-care (01) ==
PROVIDERS: Emergency Provider Family Medicine; PCP Nurse Practitioner
DX: T82.594A Other mechanical complication of infusion catheter, initial encounter (principal); N39.0 Urinary tract infection, site not specified; B96.1 Klebsiella pneumoniae [K. pneumoniae] as the cause of diseases classified elsewhere; Z79.4 Long term (current) use of insulin; I11.0 Hypertensive heart disease with heart failure; I50.9 Heart failure, unspecified; G20.A1 Parkinson's disease without dyskinesia, without mention of fluctuations; E11.9 Type 2 diabetes mellitus without complications; Z87.440 Personal history of urinary (tract) infections
CPT/HCPCS: 36415; 71045; 73060; 80053; 85025; 87040; 87070; 87075; 87205; 99284